=== PATIENT | female | born 1945 | race Two or more races ===

== ENCOUNTER → 2017-10-25 | Outpatient (CLI) | payer MEDICARE, MEDICAID ==
[~2017-10-25] MED LIST: ACETAMINOPHEN-1 EAC1 ORAL; TRAMADOL HCL50 MG ORAL
--- NOTE | 2017-10-25 10:10 | Diagnostic Imaging Report ---
Indication: Left-sided weakness Technique: Contiguous 5 mm thick transaxial imaging of the head obtained in a Siemens Sensation [address] scanner. Soft tissue and bone windows generated. Automatic Exposure Control was utilized. Total Dose length Product (DLP): 1298.[address] Dose Index Volume (CTDIvol): 70.38 mGy Comparison: 07/31/2016 Findings: Mild, nonspecific, white matter hypoattenuation is noted throughout the brain consistent with chronic small vessel disease. There is no midline shift, edema, acute hemorrhage, mass effect, or abnormal extra-axial fluid collections. Bones and extra osseous soft tissues are unremarkable. Impression: No acute intracranial bleed, mass effect or edema. Nonspecific white matter hypoattenuation probably due to chronic small vessel disease. The CT scanner at [facility] is accredited by the [employer] and the scans are performed using dose optimization techniques as appropriate to a performed exam including Automatic Exposure control.
--- NOTE | 2017-10-25 12:41 | Diagnostic Imaging Report ---
Indication: Left-sided weakness numbness. Technique: The head was imaged in a 1.5 Serena magnet. Sequences obtained include sagittal and axial T1 FLAIR, axial T2 fast spin echo with fat saturation, axial T2 FLAIR, diffusion and ADC map. Comparison: None Findings: There is mild prominence of the sulci, ventricles, and basal cisterns consistent with atrophy. Mild, nonspecific T2 hyperintensity noted within white matter. This may be due to chronic small vessel disease. There is no restricted diffusion. Lorenzo-white differentiation is normal. There is no mass effect, midline shift, edema, or hemorrhage. There are no abnormal extra-axial or intra-axial fluid collections. The corpus callosum and sella are unremarkable. The brainstem and cerebellum are unremarkable. Bone marrow signal within the visualized osseous structures appears age appropriate and unremarkable otherwise. Impression: No acute intracranial findings. Mild atrophy and evidence of chronic small vessel disease involving white matter tracts.
--- NOTE | 2017-10-25 12:43 | Diagnostic Imaging Report ---
Indication: Left-sided weakness Technique: 3-D [id number] of the brain Comparison: None Findings: No significant stenosis, vascular malformation, or aneurysm is identified. Flow-related enhancement of the major intracranial arteries demonstrated including the anterior, middle, and posterior cerebral arteries. Impression: Negative MRA of the brain
== END | disposition home or self-care (01) ==
LOC: CAT 09:42
DX: I63.9 Cerebral infarction, unspecified (principal); I73.9 Peripheral vascular disease, unspecified
CPT/HCPCS: 70450; 70544; 70551

== ENCOUNTER → 2019-02-02 | Outpatient (CLI) | payer MEDICARE, MEDICAID ==
--- NOTE | 2019-02-02 14:47 | Diagnostic Imaging Report ---
Indication: Constant headaches Technique: sagittal T1 fast spin echo, axial T1 FLAIR, axial T2 FLAIR, axial T2 FS PROPELLER, axial T2* GRE, axial diffusion weighted images. ADC and exponential ADC maps generated Comparison: 10/25/2017 Findings: No abnormal areas of restricted diffusion to suggest acute infarction. No acute hemorrhage or edema. No mass effect nor midline shift. There is mild age-related enlargement of the ventricles and extra axial CSF spaces. Areas evidence of prior bilateral cataract surgery. The sinuses are clear. The vascular flow voids are preserved. The mastoids are clear. Impression: Mild age-related volume loss Negative for acute intracranial bleed, mass effect, or infarct
== END | disposition home or self-care (01) ==
LOC: MRI 10:08
DX: R51 Headache (principal)
CPT/HCPCS: 70551

== ENCOUNTER 2019-03-30 10:06 | Outpatient (CLI) | payer MEDICARE ==
--- NOTE | 2019-03-30 12:13 | Diagnostic Imaging Report ---
Indication: Abdominal pain Technique: Continuous helical transaxial imaging of the abdomen and pelvis was obtained from the lung bases to the pubic symphysis. No intravenous contrast was administered. Coronal 2-D reformats were also obtained. Automatic Exposure Control was utilized. Total Dose length Product (DLP): 867.[address] Dose Index Volume (CTDIvol): 17.93 mGy Comparison: none Findings: Lung bases are essentially clear. There is a large hypodensity in the lower part of the left kidney measuring about 5.6 cm probably cystic. There are faint 1 to 2 mm calcific foci within the kidneys bilaterally likely tiny nonobstructive stones. There is no hydronephrosis. Gallbladder is absent. There is no adrenal mass or splenomegaly. A small hiatal hernia is present. Bowel gas pattern is nonobstructive. Diverticula noted within the sigmoid colon without definite evidence of acute diverticulitis. Uterus is absent. Urinary bladder is unremarkable. There is narrowing of intervertebral discs and accompanying endplate osteophyte formation. Hypertrophied facet joints also demonstrated. IMPRESSION: Bilateral nonobstructive renal stones Diverticulosis without definite evidence of acute diverticulitis. Suspected 5 to 6 cm cyst in the inferior pole left kidney. Degenerative changes of the spine. Status post cholecystectomy. Status post hysterectomy. The CT scanner at [facility] is accredited by the [employer] and the scans are performed using dose optimization techniques as appropriate to a performed exam including Automatic Exposure control.
== END 2019-03-30 12:06 | disposition home or self-care (01) ==
LOC: CAT 10:06
DX: R10.9 Unspecified abdominal pain (principal); N20.0 Calculus of kidney; K57.90 Diverticulosis of intestine, part unspecified, without perforation or abscess without bleeding; Z90.49 Acquired absence of other specified parts of digestive tract; Z90.710 Acquired absence of both cervix and uterus
CPT/HCPCS: 74176

== ENCOUNTER 2019-06-23 11:15 | Emergency (ER) | payer MEDICARE ==
[~2019-06-23] VITALS: Ht 157.5 cm; Wt 72.6 kg
--- NOTE | 2019-06-23 11:30 | NUR ---
ED Nurse Note: Patient walked into ED c/o shortness of breath for over 1 week. patient's primary doctor is Dr. Serrato, was seen by her PMD last week. patient is ambulatory steady gait, a/o x4.
[2019-06-23] MEDS ORDERED: ZANTAC150 MG ORAL (11:41)
[2019-06-23] MEDS ORDERED: VICTOZA 2-0.6 MG/0.1 SUBQ (11:41)
[2019-06-23] MEDS ORDERED: VASCEPA1 GM PO (11:41)
[2019-06-23] MEDS ORDERED: MICARDIS80 MG ORAL (11:41)
[2019-06-23] MEDS ORDERED: JENTADUETO 2.51 EAC1 PO (11:41)
[2019-06-23] MEDS ORDERED: PLAVIX75 MG ORAL (11:41)
[2019-06-23] MEDS ORDERED: SIMVASTATIN20 MG ORAL (11:41)
[2019-06-23] MEDS ORDERED: LOPID600 MG ORAL (11:41)
[2019-06-23] MEDS ORDERED: AMLODIPINE BESYL5 MG ORAL (11:41)
[2019-06-23] MEDS ORDERED: PROTONIX40 MG ORAL (11:41)
[2019-06-23] MEDS ORDERED: QNASL (11:41)
[2019-06-23] MEDS ORDERED: PROAIR HFA8.5 GM INH (11:41)
[2019-06-23] MEDS ORDERED: LYRICA75 M1 ORAL (11:41)
[2019-06-23] MEDS ORDERED: SYMBICORT 16010.2 G1 IH (11:41)
[2019-06-23] MEDS ORDERED: lovaza (11:41)
[2019-06-23] MEDS: Albuterol ud Inhalation HHN SCH ×3 (11:54→12:23)
[2019-06-23] MEDS ORDERED: Ipratropium 0.02% Inh Soln 2.5ml UD HHN ONE (12:00)
--- NOTE | 2019-06-23 12:01 | Emergency Room Report ---
History of Present Illness General Chief Complaint: Dyspnea/Respdistress Source: Patient Present Illness HPI Disclaimer: Please note that this report is being documented using DRAGON technology. This can lead to erroneous entry secondary to incorrect interpretation by the dictating instrument. HPI: This is a 74-year-old female with a history of hypertension, hyperlipidemia , CAD status post stenting, diabetes, asthma, renal disease, GERD presenting for evaluation of persistent cough and shortness of breath. Symptoms have been present more than 1 week. She was seen at her PMD diagnosed with a viral upper respiratory syndrome in the setting of sore throat, nasal congestion, postnasal drip. She was started on Tessalon Perles without significant improvement in her symptoms. She has noted subjective fevers throughout the week and then you using Tylenol for control of those fevers. She has not taken any temperatures at home. Noted some abdominal discomfort including a couple episodes of vomiting and some loose stools however this is now resolving. No known sick contacts. Came in today for worsening cough and worsening chest pain while coughing. PMH: Diabetes, hypertension, hyperlipidemia, CAD, GERD, renal disease, renal cysts PSH: , cholecystectomy, cardiac stents Allergies: Denies Social Hx: Denies alcohol, tobacco or drug use Allergies: Coded Allergies: No Known Allergies (Unverified , 01/17/16) Nursing Documentation-PM Past Medical History: No History, Except For Hx Hypertension: Yes Hx Diabetes: Yes Review of Systems All Other Systems: negative except mentioned in HPI Physical Exam Vital Signs Date Time Temp Pulse Resp B/P (MAP) Pulse Ox O2 Delivery O2 Flow Rate FiO2 06/23/19 11:26 98.2 84 20 155/80 (105) 96 Room Air General: Awake and alert, no acute distress HEENT: NC/AT. EOMI. Sinus congestion bilaterally and mild tenderness. Neck: Supple, trachea midline Chest Wall: No tenderness, no deformity Cardiovascular: RRR. S1 and S2 normal. No murmur appreciated Resp: Normal work of breathing. Persistent cough throughout my exam. Faint wheezing in the upper lung corado and faint crackles in the low bases bilaterally. Restricted air entry bilaterally. Abdomen: Abdomen is soft, nondistended. Nontender, obese abdomen Skin: Intact. No abrasions, laceration or rash over the exposed skin MSK: Normal tone and bulk. Moving all extremities. No obvious deformity. Neuro: Awake and alert. Mentating appropriately. Medical Decision Making Diagnostic Impression: Primary Impression: URI (upper respiratory infection) Additional Impression: Bronchitis ER Course 74-year-old female presents for evaluation of cough and shortness of breath greater than 1 week duration. Differential includes was not limited to URI, pneumonia, bronchitis, asthma exacerbation, COPD, ACS, angina, gastroenteritis. We will start a broad metabolic and infectious work-up including chest x-ray and EKG. Patient is currently comfortable though air entry is reduced bilaterally with some scant wheezing. Will give breathing treatments and monitor for improvement. Laboratory Tests Test 06/23/19 12:00 06/23/19 13:05 White Blood Count 9.1 K/UL (4.8-10.8) Red Blood Count 3.52 M/UL (4.20-5.40) L Hemoglobin 10.4 G/DL (12.0-16.0) L Hematocrit 32.5 % (37.0-47.0) L Mean Corpuscular Volume 93 FL (80-99) Mean Corpuscular Hemoglobin 29.7 PG (27.0-31.0) Mean Corpuscular Hemoglobin Concent 32.1 G/DL (32.0-36.0) Red Cell Distribution Width 12.4 % (11.6-14.8) Platelet Count 273 K/UL (150-450) Mean Platelet Volume 5.3 FL (6.5-10.1) L Neutrophils (%) (Auto) 74.0 % (45.0-75.0) Lymphocytes (%) (Auto) 17.5 % (20.0-45.0) L Monocytes (%) (Auto) 5.7 % (1.0-10.0) Eosinophils (%) (Auto) 2.3 % (0.0-3.0) Basophils (%) (Auto) 0.5 % (0.0-2.0) Sodium Level 149 MMOL/L (136-145) H Potassium Level 4.1 MMOL/L (3.5-5.1) Chloride Level 112 MMOL/L (98-107) H Carbon Dioxide Level 25 MMOL/L (21-32) Anion Gap 12 mmol/L (5-15) Blood Urea Nitrogen 28 mg/dL (7-18) H Creatinine 1.5 MG/DL (0.55-1.30) H Estimate Glomerular Filtration Rate mL/min (>60) Glucose Level 148 MG/DL (74-106) H Calcium Level 8.9 MG/DL (8.5-10.1) Total Bilirubin 0.2 MG/DL (0.2-1.0) Aspartate Amino Transferase (AST) 16 U/L (15-37) Alanine Aminotransferase (ALT) 17 U/L (12-78) Alkaline Phosphatase 84 U/L (46-116) Total Creatine Kinase 81 U/L (26-308) Creatine Kinase MB 0.6 NG/ML (0.0-3.6) Creatine Kinase MB Relative Index 0.7 Troponin I 0.000 ng/mL (0.000-0.056) Pro-B-Type Natriuretic Peptide 160 pg/mL (0-125) H Total Protein 7.7 G/DL (6.4-8.2) Albumin 3.5 G/DL (3.4-5.0) Globulin 4.2 g/dL Albumin/Globulin Ratio 0.8 (1.0-2.7) L Urine Color Pale yellow Urine Appearance Clear Urine pH 5 (4.5-8.0) Urine Specific [place] 1.010 (1.005-1.035) Urine Protein 2+ (NEGATIVE) H Urine Glucose (UA) Negative (NEGATIVE) Urine Ketones Negative (NEGATIVE) Urine Blood Negative (NEGATIVE) Urine Nitrite Negative (NEGATIVE) Urine Bilirubin Negative (NEGATIVE) Urine Urobilinogen Normal MG/DL (0.0-1.0) Urine Leukocyte Esterase 1+ (NEGATIVE) H Urine RBC 0-2 /HPF (0 - 2) Urine WBC 0-2 /HPF (0 - 2) Urine Squamous Epithelial Cells Occasional /LPF Urine Bacteria Few /HPF (NONE) EKG Diagnostic Results EKG Time: 11:56 Rate: normal Rhythm: NSR Other Impression Sinus rhythm, left axis, normal intervals. No acute ischemic changes. There are Q waves in inferior leads consistent with prior infarct of indeterminate age Rhythm Strip Diag. Results Rhythm Strip Time: 11:56 EP Interpretation: yes Rate: 80s Rhythm: NSR Chest X-Ray Diagnostic Results Chest X-Ray Diagnostic Results : # of Views/Limited/Complete: 2 View Indication: Shortness of Breath EP Interpretation: Yes PA Xray: Interpretation reviewed Interpretation: no consolidation, no effusion, no pneumothorax Impression: No acute disease Electronically Signed by: Electronically signed by Dr. Hunter Reynoso Reevaluation Time: 13:47 Last Vital Signs Date Time Temp Pulse Resp B/P (MAP) Pulse Ox O2 Delivery O2 Flow Rate FiO2 06/23/19 11:26 98.2 84 20 155/80 (105) 96 Room Air Status: improved Reevaluation Impression Lab work largely unremarkable. No significant white count or other major abnormalities. Creatinine is slightly elevated though PMD states this is her new baseline. Chest x-ray shows no obvious infiltrate. May be a viral illness that the patient is experiencing and should improve over the next few days. She is doing much better after receiving breathing treatments in the emergency department. I discussed with her PMD who can follow-up with her closely. I will discharge on prednisone and Mucinex and the patient will have's with follow -up with her PMD in the next few days. I discussed reasons to return to the emergency department with patient and her niece who is present at bedside. They both understand and agrees with this treatment plan will be discharged home Disposition: HOME, SELF-CARE Condition: Improved Scripts Guaifenesin (GUAIFENESIN) 400 Mg Tablet 400 MG PO TID for 7 Days, #21 TAB Prov: Hunter Reynoso MD 06/23/19 Prednisone* (PREDNISONE*) 20 Mg Tablet 40 MG ORAL DAILY for 3 Days, #6 TAB Prov: Hunter Reynoso MD 06/23/19 Hunter Reynoso MD Jun 23, 2019 12:01
[2019-06-23 12:08] LABS: BASOPHILS % (AUTO) 0.5 % (0.0-2.0); EOSINOPHILS % (AUTO) 2.3 % (0.0-3.0); HEMATOCRIT 32.5 % (37.0-47.0); HEMOGLOBIN 10.4 G/DL (12.0-16.0); LYMPHOCYTES % (AUTO) 17.5 % (20.0-45.0); MEAN CORPUSCULAR VOLUME 93 FL (80-99); MONOCYTES % (AUTO) 5.7 % (1.0-10.0); PLATELET COUNT 273 K/UL (150-450); RED BLOOD COUNT 3.52 M/UL (4.20-5.40); RED CELL DISTRIBUTION WIDTH 12.4 % (11.6-14.8); WHITE BLOOD COUNT 9.1 K/UL (4.8-10.8)
[2019-06-23 12:22] LABS: ANION GAP 12 mmol/L (5-15); BLOOD UREA NITROGEN 28 mg/dL (7-18); CALCIUM 8.9 MG/DL (8.5-10.1); CARBON DIOXIDE 25 MMOL/L (21-32); CHLORIDE 112 MMOL/L (98-107); CREATININE 1.5 MG/DL (0.55-1.30); POTASSIUM 4.1 MMOL/L (3.5-5.1); SODIUM 149 MMOL/L (136-145)
[2019-06-23 12:29] VITALS: BP 126/63
[2019-06-23 12:36] LABS: ALANINE AMINOTRANSFERASE 17 U/L (12-78); ALBUMIN 3.5 G/DL (3.4-5.0); ALBUMIN/GLOBULIN RATIO 0.8 (1.0-2.7); ALKALINE PHOSPHATASE 84 U/L (46-116); ASPARTATE AMINO TRANSFERASE 16 U/L (15-37); BILIRUBIN,TOTAL 0.2 MG/DL (0.2-1.0); CKMB 0.6 NG/ML (0.0-3.6); CREATINE KINASE 81 U/L (26-308)
--- NOTE | 2019-06-23 13:05 | NUR ---
ED Nurse Note: ua sent to lab
--- NOTE | 2019-06-23 13:05 | Diagnostic Imaging Report ---
Indication: Cough, shortness of breath Technique: One view of the chest Comparison: 08/04/2015 Findings: The heart remains enlarged. No definite acute infiltrates, effusions, congestion. Impression: Cardiomegaly. No definite acute process
[2019-06-23 13:15] LABS: APPEARANCE,URINE CLEAR; BILIRUBIN, URINE NEGATIVE (NEGATIVE); COLOR,URINE PALE YELLOW; GLUCOSE, URINE (UA) NEGATIVE (NEGATIVE); KETONES,URINE NEGATIVE (NEGATIVE); LEUKOCYTE ESTERASE ,URINE 1+ (NEGATIVE); NITRITE,URINE NEGATIVE (NEGATIVE); PH,URINE 5 (4.5-8.0); PROTEIN,URINE 2+ (NEGATIVE); UROBILINOGEN,URINE NORMAL MG/DL (0.0-1.0)
[2019-06-23] MEDS ORDERED: PREDNISONE20 MG ORAL (13:46)
[2019-06-23] MEDS ORDERED: GUAIFENESIN400 MG PO (13:46)
[2019-06-23 13:55] VITALS: BP 126/63
--- NOTE | 2019-06-23 13:55 | NUR ---
ER DISCHARGE NOTE: Patient is cleared to be discharged per ROSY DEXTER pt is aox4, on room air, with stable vital signs. pt was given dc and prescription instructions, pt was able to verbalize understanding, pt id band and iv site removed without complications. pt is able to ambulate with steady gait. pt took all belongings.
== END 2019-06-23 13:55 | disposition home or self-care (01) ==
LOC: EMR 12:06
DX: J40 Bronchitis, not specified as acute or chronic (principal); J06.9 Acute upper respiratory infection, unspecified; I10 Essential (primary) hypertension; E11.9 Type 2 diabetes mellitus without complications; E78.5 Hyperlipidemia, unspecified; I25.10 Atherosclerotic heart disease of native coronary artery without angina pectoris; K21.9 Gastro-esophageal reflux disease without esophagitis; Z95.5 Presence of coronary angioplasty implant and graft; Z90.49 Acquired absence of other specified parts of digestive tract; Z87.448 Personal history of other diseases of urinary system
CPT/HCPCS: 36415; 71045; 80053; 81003; 82550; 82553; 83880; 84484; 85025; 93005; 94640; 94664; 99284

== ENCOUNTER 2020-01-31 20:45 | Inpatient (IN) | payer MEDICARE ==
[~2020-01-31] VITALS: Ht 160 cm; Wt 70.8 kg
[~2020-01-31 20:45] MED LIST changes: +AMLODIPINE BESYL5 MG ORAL; +GUAIFENESIN400 MG PO; +JENTADUETO 2.51 EAC1 PO; +LOPID600 MG ORAL; +LYRICA75 M1 ORAL; +MICARDIS80 MG ORAL; +PLAVIX75 MG ORAL; +PREDNISONE20 MG ORAL; +PROAIR HFA8.5 GM INH; +PROTONIX40 MG ORAL; +QNASL; +SIMVASTATIN20 MG ORAL; +SYMBICORT 16010.2 G1 IH; +VASCEPA1 GM PO; +VICTOZA 2-0.6 MG/0.1 SUBQ; +ZANTAC150 MG ORAL; +lovaza
[2020-01-31] MEDS ORDERED: Aspirin Baby 81mg ORAL ONE (21:00)
[2020-01-31] MEDS ORDERED: Nitroglycerin Subl 0.4mg tab SL PRN (21:00)
--- NOTE | 2020-01-31 21:29 | Emergency Room Report ---
History of Present Illness General Chief Complaint: Chest Pain Source: Patient Present Illness HPI Disclaimer: Please note that this report is being documented using [employer] it Wave[employer] technology. This can lead to erroneous entry secondary to incorrect interpretation by the dictating instrument. HPI: 74-year-old female history of hypertension, diabetes, cholecystectomy, presented for chest pain and abdominal pain. Regarding her chest pain is been present for the past 3 days center nonradiating associated with nausea and vomiting. Also complaining of abdominal pain that is epigastric and suprapubic , 8 out of 10 associated with nausea vomiting and dysuria. She denies any fevers cough or shortness of breath. She states her blood pressure has been elevated today. She reports a history of myocardial infarction in the past. PMH: Hypertension, diabetes, coronary artery disease, cholecystectomy, hernia repair, PSH: Reviewed Social Hx: Patient denied any drinking, smoking or illicit drug use Allergies: Coded Allergies: No Known Allergies (Unverified , 01/17/16) COVID-19 Screening Contact w/high risk pt: No Recent Travel to affected area: No Experienced COVID-19 symptoms?: No Patient History Reviewed Nursing Documentation: PMH: Agreed; PSxH: Agreed Nursing Documentation-PMH Hx Hypertension: Yes Hx Diabetes: Yes Review of Systems All Other Systems: negative except mentioned in HPI Physical Exam Vital Signs Date Time Temp Pulse Resp B/P (MAP) Pulse Ox O2 Delivery O2 Flow Rate FiO2 01/31/20 20:56 98.4 77 24 200/99 (132) 95 Room Air Sp02 EP Interpretation: reviewed, normal General Appearance: well appearing, other - Patient appears uncomfortable Head: normocephalic, atraumatic Eyes: bilateral eye PERRL, bilateral eye EOMI ENT: hearing grossly normal, moist mucus membranes Neck: full range of motion, supple Respiratory: lungs clear, normal breath sounds, no rhonchi, no respiratory distress, no retraction, no wheezing Cardiovascular #1: normal peripheral pulses, regular rate, rhythm, no murmur Gastrointestinal: soft, non-distended, no guarding, other - Diffuse tenderness noted Neurologic: alert, oriented x3, no focal defects Skin: normal color, warm/dry Medical Decision Making Diagnostic Impression: Primary Impression: Chest pain Additional Impressions: Nausea & vomiting UTI (urinary tract infection) ER Course MDM: 74-year-old female presented with multiple complaints including chest pain abdominal pain nausea and vomiting. differential diagnosis: included but not limited to gastritis, gastroenteritis , diverticulitis, UTI, pyelonephritis, ACS Clinical course Patient placed on stretcher. On lab associate. After initial history and physical I ordered labs, CT scan of the abdomen pelvis, chest x-ray, EKG, antiemetics and pain control. Troponin negative X1. CT scan of the abdomen pelvis showed no evidence of acute pathology. Urinalysis was consistent with urinary tract infection. IV antibiotics given. Due to patient's cardiac risk factors, history of cardiac disease will admit for further observation and treatment. Laboratory Tests Test 01/31/20 21:30 01/31/20 21:50 White Blood Count 6.8 K/UL (4.8-10.8) Red Blood Count 4.15 M/UL (4.20-5.40) L Hemoglobin 12.3 G/DL (12.0-16.0) Hematocrit 37.5 % (37.0-47.0) Mean Corpuscular Volume 90 FL (80-99) Mean Corpuscular Hemoglobin 29.6 PG (27.0-31.0) Mean Corpuscular Hemoglobin Concent 32.8 G/DL (32.0-36.0) Red Cell Distribution Width 12.7 % (11.6-14.8) Platelet Count 237 K/UL (150-450) Mean Platelet Volume 7.5 FL (6.5-10.1) Neutrophils (%) (Auto) 90.2 % (45.0-75.0) H Lymphocytes (%) (Auto) 7.3 % (20.0-45.0) L Monocytes (%) (Auto) 1.8 % (1.0-10.0) Eosinophils (%) (Auto) 0.0 % (0.0-3.0) Basophils (%) (Auto) 0.6 % (0.0-2.0) Sodium Level 133 MMOL/L (136-145) L Potassium Level 3.3 MMOL/L (3.5-5.1) L Chloride Level 94 MMOL/L (98-107) L Carbon Dioxide Level 22 MMOL/L (21-32) Anion Gap 17 mmol/L (5-15) H Blood Urea Nitrogen 20 mg/dL (7-18) H Creatinine 1.3 MG/DL (0.55-1.30) Estimated Glomerular Filtration Rate 40.1 mL/min (>60) Glucose Level 266 MG/DL (74-106) H Calcium Level 9.2 MG/DL (8.5-10.1) Total Bilirubin 0.2 MG/DL (0.2-1.0) Aspartate Amino Transferase (AST) 21 U/L (15-37) Alanine Aminotransferase (ALT) 23 U/L (12-78) Alkaline Phosphatase 78 U/L (46-116) Troponin I 0.000 ng/mL (0.000-0.056) Pro-B-Type Natriuretic Peptide 526 pg/mL (0-125) H Total Protein 8.1 G/DL (6.4-8.2) Albumin 3.7 G/DL (3.4-5.0) Globulin 4.4 g/dL Albumin/Globulin Ratio 0.8 (1.0-2.7) L Urine Color Pale yellow Urine Appearance Slightly cloudy Urine pH 7 (4.5-8.0) Urine Specific [place] 1.010 (1.005-1.035) Urine Protein 3+ (NEGATIVE) H Urine Glucose (UA) 3+ (NEGATIVE) H Urine Ketones 2+ (NEGATIVE) H Urine Blood 1+ (NEGATIVE) H Urine Nitrite Negative (NEGATIVE) Urine Bilirubin Negative (NEGATIVE) Urine Urobilinogen Normal MG/DL (0.0-1.0) Urine Leukocyte Esterase 3+ (NEGATIVE) H Urine RBC 2-4 /HPF (0 - 2) H Urine WBC 10-15 /HPF (0 - 2) H Urine Squamous Epithelial Cells Few /LPF (NONE/OCC) Urine Bacteria Few /HPF (NONE) EKG Diagnostic Results EP Interpretation: Yes Rate: normal Rhythm: NSR ST Segments: other Other Impression Sinus rhythm, left axis deviation, prolonged QT impression nonspecific EKG CT/MRI/US Diagnostic Results CT/MRI/US Diagnostic Results : Imaging Test Ordered: CT scan abdomen pelvis Impression CT ABDOMEN + PELVIS Without Contrast: Prior 03/30/2019 Impression -No acute abnormality definitively identified to account for patient presentation. -Hepatic steatosis, correlate to exclude steatohepatitis. - Likely 2 left and at least one right punctate nonobstructing nephroliths, otherwise no urolithiasis. -Cholecystectomy. -Unchanged since prior right lower lobe 0.4 cm nodule, recommend correlation with prior imaging studies to evaluate stability over time. -Mosaic lung attenuation could represent small airways disease. -Benign left renal cyst. -Atherosclerotic vascular disease. - Hysterectomy. - Colonic diverticulosis without acute diverticulitis. - Unchanged anterior low pelvic wall and rectus abdominis muscle thickening since prior study of likely no acute clinical significance. Last Vital Signs Date Time Temp Pulse Resp B/P (MAP) Pulse Ox O2 Delivery O2 Flow Rate FiO2 01/31/20 20:56 98.4 77 24 200/99 (132) 95 Room Air Status: improved Disposition: ADMITTED INPATIENT Condition: Serious Referrals: Bulmaro Correa MD (PCP) Myron Walters M.D. Jan 31, 2020 21:29
[2020-01-31 21:30] VITALS: BP 200/99
[2020-01-31] MEDS ORDERED: Morphine Sulfate 2mg/ml Inj(IV/IM USE ONLY) IVP ONE (21:30)
--- NOTE | 2020-01-31 21:30 | NUR ---
ER Nurse Note: Pt walked in c/o mid to LT chest pain since AM. Pt stated she noted elevated BP and a headache. Pt stated abd pain for the past 3 days with increasing burning sensation when she urinates. Pt does not recall if she took her meds for BP. SLIV established; blood drawn and sent to lab. EKG completed and showen to ERMD. All safety measures met; will [facility] to [facility].
[2020-01-31 21:46] LABS: BASOPHILS % (AUTO) 0.6 % (0.0-2.0); HEMATOCRIT 37.5 % (37.0-47.0); HEMOGLOBIN 12.3 G/DL (12.0-16.0); LYMPHOCYTES % (AUTO) 7.3 % (20.0-45.0); MEAN CORPUSCULAR VOLUME 90 FL (80-99); MONOCYTES % (AUTO) 1.8 % (1.0-10.0); NEUTROPHILS % (AUTO) 90.2 % (45.0-75.0); PLATELET COUNT 237 K/UL (150-450); RED BLOOD COUNT 4.15 M/UL (4.20-5.40); RED CELL DISTRIBUTION WIDTH 12.7 % (11.6-14.8); WHITE BLOOD COUNT 6.8 K/UL (4.8-10.8)
--- NOTE | 2020-01-31 21:53 | Diagnostic Imaging Report ---
Indication: Abdominal pain Technique: Spiral acquisitions obtained through the abdomen and pelvis. No oral contrast utilized, per emergency room physician request No IV contrast utilized, per referring physician request.. Multiplanar reconstructions were generated. Total dose length product for 264 mGycm. CTDIvol(s) 9.9 mGy. Dose reduction achieved using automated exposure control Comparison: 03/30/2019 Findings: The appendix is not definitely visualized, but no findings to suggest acute appendicitis are evident. There are colonic diverticula. No evidence of acute diverticulitis. No free or loculated intraperitoneal gas or fluid. No small bowel distention. The distal esophagus, stomach, duodenum are unremarkable. Lack of IV contrast limits assessment of the solid organs. The gallbladder has been removed. The liver is diffusely hypoattenuating, consistent with fatty change. No gross focal abnormality. The pancreas is unremarkable. The spleen demonstrates a subcentimeter low-attenuation lesion which is also evident previously. The adrenals are unremarkable. Both kidneys demonstrate small calyceal calculi. No ureteral calculi, hydronephrosis, or hydroureter demonstrated. A large cyst comes off of the lower pole of the left kidney. This is also evident previously. The uterus has been removed. No pelvic mass or adenopathy. There are degenerative spondylosis changes. Compression fracture deformities of the L2 and T11 vertebral bodies are unchanged. There is a 4 mm nodule at the right lung base which is unchanged from the previous exam Impression: No acute abnormality Stable 4 mm right basilar lung nodule. No further follow-up necessary if there is no significant risk factors for lung carcinoma. If there are risk factors, recommend follow-up CT at 12 months from the previous exam to complete surveillance interval Colonic diverticulosis. No evidence of diverticulitis. Fatty liver Nonobstructive bilateral intrarenal calyceal calculi, also previously reported Stable subcentimeter low-attenuation splenic lesion, likely benign stable T10-11 and L2 vertebral body compression fracture deformities Other findings as noted, including large left lower pole renal cyst, prior hysterectomy, prior cholecystectomy This agrees with the preliminary interpretation provided overnight by [facility] teleradiology service. The CT scanner at [facility] is accredited by the [employer] and the scans are performed using protocols designed to limit radiation exposure to as low as reasonably achievable to attain images of sufficient resolution adequate for diagnostic evaluation.
[2020-01-31 21:58] LABS: ANION GAP 17 mmol/L (5-15); BLOOD UREA NITROGEN 20 mg/dL (7-18); CALCIUM 9.2 MG/DL (8.5-10.1); CARBON DIOXIDE 22 MMOL/L (21-32); CHLORIDE 94 MMOL/L (98-107); CREATININE 1.3 MG/DL (0.55-1.30); POTASSIUM 3.3 MMOL/L (3.5-5.1); SODIUM 133 MMOL/L (136-145)
[2020-01-31 22:08] LABS: ALANINE AMINOTRANSFERASE 23 U/L (12-78); ALBUMIN 3.7 G/DL (3.4-5.0); ALBUMIN/GLOBULIN RATIO 0.8 (1.0-2.7); ALKALINE PHOSPHATASE 78 U/L (46-116); ASPARTATE AMINO TRANSFERASE 21 U/L (15-37); BILIRUBIN,TOTAL 0.2 MG/DL (0.2-1.0)
--- NOTE | 2020-01-31 22:14 | NUR ---
ER Nurse Note: All orders completed per ERMD orders. Denies pain after meds given. Pt more calm, VSS, no signs of distress. Awaiting urine results. Pt skin intact, ambulatory with steady gait. All safety measues met; will continue to [facility].
[2020-01-31 22:24] LABS: APPEARANCE,URINE SLIGHTLY CLOUDY; BILIRUBIN, URINE NEGATIVE (NEGATIVE); COLOR,URINE PALE YELLOW; GLUCOSE, URINE (UA) 3+ (NEGATIVE); KETONES,URINE 2+ (NEGATIVE); LEUKOCYTE ESTERASE ,URINE 3+ (NEGATIVE); NITRITE,URINE NEGATIVE (NEGATIVE); PH,URINE 7 (4.5-8.0); PROTEIN,URINE 3+ (NEGATIVE); UROBILINOGEN,URINE NORMAL MG/DL (0.0-1.0)
--- NOTE | 2020-01-31 22:27 | NUR ---
ER Nurse Note: Second sublingual nitro given d/t to continous pain. Pt stated morphine helped but pain still present. BP 164/77. Lights turned off for comfort. Will continue to [facility].
[2020-01-31 22:29] VITALS: BP 164/77
[2020-01-31] MEDS ORDERED: cefTRIAXone 1 GM in NS 55 ML IVPB ONE (22:45)
--- NOTE | 2020-01-31 23:20 | NUR ---
ER Nurse Note: Gave report to EM Valverde for contiinuity of care. All orders completed; pt stable. Addendum: 02/01/20 at 0003 by [email or web address] ER Nurse Note: Pt does not remember home meds; unable to med recon.
[2020-01-31 23:35] VITALS: BP 146/74
[2020-02-01] VITALS (7 sets, daily range): BP systolic 104–147; BP diastolic 64–81
--- NOTE | 2020-02-01 | NUR ---
NURSE NOTES: Received report from Flor Cooper RN. Patient was transferred via gurney to room 205-2. Patient is alert and oriented x 4. Oriented to room and telemetry unit. media monitor is in placed, shows sinus rhythm. IV site on left forearm g-22 saline lock that is intact, patent and asymptomatic. Safety measures are in placed, bed in lowest and locked position, call light and bedside table within reach. Side rails up x 2, bed alarm is on. Instructed to call for any assistance needed. Will follow-up for admission orders.
--- NOTE | 2020-02-01 05:30 | NUR ---
NURSE NOTES: Called Dr. Correa to get admitting orders and just left a message. Awaiting for call back.
--- NOTE | 2020-02-01 07:15 | NUR ---
NURSE NOTES: Handoff received from EM Israel. Patient received awake and alert, resting in bed, no acute signs of distress noted. Bed in the low and locked position, with call light within reach,No signs of distress noted, will continue to monitor.
[2020-02-01] MEDS ORDERED: Tylenol #3 tab (300mg/30mg) ORAL PRN ×2 (07:30→16:45)
[2020-02-01] MEDS ORDERED: traMADol 50mg tab ORAL PRN (07:30)
--- NOTE | 2020-02-01 08:07 | NUR ---
HAND-OFF: Report given to EM Bush. Patient is in stable condition, plan of care endorsed.
--- NOTE | 2020-02-01 08:19 | NUR ---
NURSE NOTES: Dr Correa gave TO/RB order given for heparin 5000U sub cutaneous BID. Endorsed from PM shift.
--- NOTE | 2020-02-01 08:39 | NUR ---
NURSE NOTES:Patient in observation status per Dr Correa.
[2020-02-01] MEDS ORDERED: guaiFENesin ER 600mg tab ORAL SCH (09:00)
--- NOTE | 2020-02-01 09:50 | Diagnostic Imaging Report ---
Indication: Chest pain Technique: One view of the chest Comparison: 06/23/2019 Findings: The heart is enlarged. The lungs and pleural spaces are clear. There is no significant interim change Impression: Cardiomegaly No acute process
[2020-02-01] MEDS: Irbesartan 150mg tablet ORAL SCH (10:14)
[2020-02-01] MEDS: Lyrica 50mg cap ORAL SCH ×3 (10:15→17:00)
[2020-02-01] MEDS: Heparin 5000 units/ml inj SUBQ SCH ×2 (10:17→21:44)
--- NOTE | 2020-02-01 10:34 | NUR ---
CASE MANAGEMENT:REVIEW 74 YR OLD FEMALE WALKED IN TO ER CC: CHEST PAIN, HEADACHE AND HIGH BP SI: CHEST PAIN. ACS. N/V. UTI 98.5 77 24 200/99 95% ON RA NA-133 K-3.3 BUN+20 GLUCOSE+266 TROPONIN(-) IS: ASA PO IV ZOFRAN X1 IV MORPHINE IV ROCEPHIN URINE CX CT ABD/PELVIS CHEST XRAY : TELEMETRY STATUS DCP: FROM HOME
--- NOTE | 2020-02-01 11:26 | NUR ---
HAND-OFF: Report given to EM Bennett.
--- NOTE | 2020-02-01 11:30 | NUR ---
NURSE NOTES: RECEIVED PATIENT A/A/OX4, AMBULATORY WITH MINIMAL ASSIST. NO SKIN ISSUES NOTED. ABLE TO PERFORM ADL'S INDEPENDENTLY. TOLERATING FOOD INTAKE WELL. IV ACCESS PATENT AND INTACT. NO ACUTE CARDIO-RESP DISTRESS NOTED. BED IS IN THE LOWEST POSITION. SIDERAILS ARE UPX3. BRAKES AND LOCKED ENGAGED. CALL LIGHT IS WITHIN REACH. WILL CONT TO MONITOR.
[2020-02-01] MEDS: NovoLOG Insulin Flexpen SUBQ SCH ×3 (11:37→21:44)
[2020-02-01] MEDS: guaiFENesin ER 600mg tab ORAL SCH ×2 (12:36→17:00)
--- NOTE | 2020-02-01 12:45 | History and Physical Report ---
DATE OF ADMISSION: 01/31/2020 REASON FOR ADMISSION: Chest pain and flank pain. HISTORY OF PRESENT ILLNESS: This is a 74-year-old female, well known to me. The patient with history of diabetes and hypertension, who presented with chest pain and epigastric pain. The patient had a CT of her abdomen, which is fairly nonspecific. The patient also with some nausea and vomiting. No cough. No sputum. No fevers. The patient overall improved in regards to pain. At this time, the patient's blood pressure has been somewhat elevated as well. The patient notes that she has had some flank pain. Currently, the patient appears to be fairly comfortable. No significant distress. PAST MEDICAL HISTORY: Notable for hypertension, diabetes, cholecystectomy, hernia repair, and coronary artery disease. MEDICATIONS: Reviewed. ALLERGIES: Reviewed. SOCIAL HISTORY: Nonsmoker and nondrinker. The patient has been socially isolating. REVIEW OF SYSTEMS: All 10 points reviewed and otherwise negative. PHYSICAL EXAMINATION: GENERAL: A well-developed female, comfortable at present. VITAL SIGNS: Stable. Blood pressure 137/74, pulse 64, respirations 20, sats 100%, temperature 96.7. HEENT: Negative. NECK: Supple. Extraocular movements are grossly intact. LUNGS: Clear and symmetric. No rhonchi or wheezes. CARDIAC: S1 and S2. Regular rate and rhythm without murmurs, rubs, or gallops. ABDOMEN: Soft, nontender, nondistended. EXTREMITIES: No cyanosis, clubbing, or edema. NEUROLOGIC: Grossly nonfocal. LABORATORY DATA: All lab data reviewed. IMPRESSION: 1. Chest pain, possible acute coronary syndrome. Negative troponins thus far. 2. Elevated natriuretic peptide. 3. Abdominal pain, which is very mild. 4. Chronic renal impairment. 5. elevated triglycerides 6. Hyperkalemia. 7. Diabetes. 8. Hypertension. RECOMMENDATIONS: Supportive care. Resume home medications. Monitor blood pressure. Monitor heart rate. Monitor electrolytes. Monitor troponin. Follow up EKG and if stable, we will consider discharge planning with outpatient nuclear stress test for further evaluation and recommendations. Care discussed with the patient's family and will follow up clinically for further changes. Bulmaro Correa M.D. DR: NESTOR JOB#: [id number] CC: NEYMAR
[2020-02-01] MEDS: Albuterol ud Inhalation HHN SCH ×2 (13:09→19:06)
--- NOTE | 2020-02-01 19:27 | NUR ---
NURSE NOTES: RECEIVED PATIENT A/A/OX4, sitting up in bed, AMBULATORY WITH MINIMAL ASSIST. NO SKIN ISSUES NOTED. ABLE TO PERFORM ADL'S INDEPENDENTLY. L FA 22 g, NS locked, IV ACCESS PATENT AND INTACT. NO ACUTE DISTRESS NOTED. BED IS IN THE LOWEST POSITION. SIDE RAILS ARE UPX3. Bed locked in lowest position. CALL LIGHT IS WITHIN REACH. WILL CONTINUE TO MONITOR.
--- NOTE | 2020-02-01 19:36 | NUR ---
HAND-OFF: Report given to Sofy.
[2020-02-02] MEDS: Albuterol ud Inhalation HHN SCH ×3 (00:23→12:04)
[2020-02-02 04:00] VITALS: BP 124/64
[2020-02-02] MEDS: NovoLOG Insulin Flexpen SUBQ SCH (06:34)
--- NOTE | 2020-02-02 07:30 | NUR ---
HAND-OFF: Report given to Lauren STRICKLAND.
[2020-02-02 07:41] LABS: ANION GAP 11 mmol/L (5-15); BLOOD UREA NITROGEN 28 mg/dL (7-18); CALCIUM 8.9 MG/DL (8.5-10.1); CARBON DIOXIDE 26 MMOL/L (21-32); CHLORIDE 98 MMOL/L (98-107); CREATININE 1.8 MG/DL (0.55-1.30); POTASSIUM 3.7 MMOL/L (3.5-5.1); SODIUM 135 MMOL/L (136-145)
[2020-02-02 08:35] VITALS: BP 117/61
--- NOTE | 2020-02-02 08:37 | NUR ---
NURSE NOTES: need to clarify order for symbicort and vascepa, message left with dr love
[2020-02-02 09:02] VITALS: BP 117/61
[2020-02-02] MEDS: guaiFENesin ER 600mg tab ORAL SCH (09:02)
[2020-02-02] MEDS: Irbesartan 150mg tablet ORAL SCH (09:02)
[2020-02-02] MEDS: Lyrica 50mg cap ORAL SCH (09:03)
[2020-02-02] MEDS: Heparin 5000 units/ml inj SUBQ SCH (09:05)
--- NOTE | 2020-02-02 10:30 | NUR ---
HAND-OFF: Report given to Liz STRICKLAND pt in stable condition.
--- NOTE | 2020-02-02 11:13 | General Progress Note ---
Assessment/Plan Assessment/Plan: IMPRESSION: 1. Chest pain resolved 2. Elevated natriuretic peptide. 3. Abdominal pain, improved 4. Chronic renal impairment. 5. Flank pain 6. Hyperkalemia. 7. Diabetes. 8. Hypertension. PLAN troponin negative x 4 symptoms improved dc home outpatient ribidium PET family aware compliance urged overall impression, plan, and exam edited and reviewed in detail care discussed with RN Subjective Allergies: Coded Allergies: No Known Allergies (Unverified , 01/17/16) Subjective comfortable no further cp or abdominal pain family updated Objective Last 24 Hour Vital Signs Date Time Temp Pulse Resp B/P (MAP) Pulse Ox O2 Delivery O2 Flow Rate FiO2 02/02/20 09:19 Room Air 02/02/20 09:02 117/61 02/02/20 09:02 87 117/61 02/02/20 08:35 98.1 87 18 117/61 (79) 95 02/02/20 08:34 87 02/02/20 06:50 75 18 99 Room Air 69 18 95 02/02/20 06:50 69 18 95 Room Air 02/02/20 04:00 98.3 84 18 124/64 (84) 95 02/02/20 04:00 67 02/02/20 00:23 82 18 99 Room Air 80 18 98 02/02/20 00:00 71 02/01/20 23:31 98.1 91 20 121/81 (94) 95 02/01/20 21:00 Room Air 02/01/20 20:00 97.9 88 20 126/74 (91) 95 02/01/20 19:06 80 18 99 Room Air 78 18 97 02/01/20 19:06 78 18 97 Room Air 02/01/20 16:00 98.1 82 18 124/64 (84) 99 02/01/20 16:00 76 02/01/20 13:09 75 18 97 Room Air 70 18 95 02/01/20 13:09 70 18 95 Room Air 02/01/20 12:00 98.3 64 18 121/69 (86) 98 02/01/20 12:00 74 Intake and Output 02/01/20 02/02/20 19:00 07:00 Intake Total 480 ml Balance 480 ml Intake Oral 480 ml # Voids 2 3 # Bowel Movements 1 Laboratory Tests 02/01/20 16:35: Troponin I 0.004 02/02/20 00:10: Troponin I 0.004 02/02/20 05:45: White Blood Count [Pending], Red Blood Count [Pending], Hemoglobin [Pending], Hematocrit [Pending], Mean Corpuscular Volume [Pending], Mean Corpuscular Hemoglobin [Pending], Mean Corpuscular Hemoglobin Concent [Pending], Red Cell Distribution Width [Pending], Platelet Count [Pending], Mean Platelet Volume [ Pending], Neutrophils (%) (Auto) [Pending], Lymphocytes (%) (Auto) [Pending], Monocytes (%) (Auto) [Pending], Eosinophils (%) (Auto) [Pending], Basophils (%) (Auto) [Pending], Sodium Level 135L, Potassium Level 3.7, Chloride Level 98, Carbon Dioxide Level 26, Anion Gap 11, Blood Urea Nitrogen 28H, Creatinine 1.8H , Estimat Glomerular Filtration Rate 27.5, Glucose Level 172H, Calcium Level 8.9 Height (Feet): 5 Height (Inches): 3.00 Weight (Pounds): 156 Objective WDWN NAD clear breath sounds bilaterally without rhonchi or wheeze [id number] without MRG NABS nontender no HSM no CCE nonfocal Bulmaro Correa MD Feb 02, 2020 11:13
[2020-02-02 11:31] LABS: BASOPHILS % (AUTO) 0.7 % (0.0-2.0); EOSINOPHILS % (AUTO) 0.5 % (0.0-3.0); HEMATOCRIT 32.7 % (37.0-47.0); HEMOGLOBIN 11.1 G/DL (12.0-16.0); LYMPHOCYTES % (AUTO) 23.6 % (20.0-45.0); MEAN CORPUSCULAR VOLUME 88 FL (80-99); MONOCYTES % (AUTO) 7.8 % (1.0-10.0); NEUTROPHILS % (AUTO) 67.4 % (45.0-75.0); PLATELET COUNT 249 K/UL (150-450); RED BLOOD COUNT 3.71 M/UL (4.20-5.40); RED CELL DISTRIBUTION WIDTH 11.6 % (11.6-14.8); WHITE BLOOD COUNT 7.5 K/UL (4.8-10.8)
--- NOTE | 2020-02-02 12:10 | NUR ---
NURSE NOTES: Report received from Fe RN. Patient is observed in bed, awake, alert, oriented, and able to make needs known. Respiratory even and unlabored. Received discharge order from Dr. Correa, per Dr. Correa continue home medications, no new discharge meds. Reviewed home medications with patient. Educated the patient regarding discharge instructions and care, patient verbalized understanding. VSS. No c/o pain. IV site removed, asymptomatic, no hematoma and/or bleeding noted. Belongings list checked and returned. RN escorted patient to private vehicle. monitoring and evaluation advisor removed and returned.
--- NOTE | 2020-02-03 09:58 | Discharge Summary ---
Discharge Summary Discharge Summary _ DATE OF ADMISSION: 01/31/2020 DATE OF DISCHARGE: 02/02/2020 DISCHARGED BY: Dr. Correa REASON FOR ADMISSION: 74 years old female with past medical history of diabetes and hypertension, presented with chest and epigastric pain. Upon evaluation in emergency department patient was severely hypertensive with blood pressure 200/99. Patient was afebrile. Pulse oximetry was stable on room air. Patient was slightly tachypneic. Chest x-ray revealed no acute cardiopulmonary pathology. Cardiomegaly noted. CT scan of the abdomen and pelvis revealed no acute intra-abdominal pathology. Fatty liver was demonstrated. Colonic diverticulosis without evidence of diverticulitis. Stable 4 mm right basilar lung nodule. Laboratory work-up revealed no leukocytosis , stable hemoglobin, hematocrit and platelet count. Troponin negative. pro BNP 526. Sodium 133, potassium 3.3. BUN 20, creatinine 1.3. Glucose 266. Albumin 3.7. Urinalysis revealed pyuria , +3 leukocyte esterase and few bacteria; +3 protein , +3 glucose. In emergency department patient pancultured, received IV antibiotic and admitted for further management to telemetry floor. HOSPITAL COURSE: Patient admitted to telemetry floor. Serial troponin are negative. EKG revealed no acute ischemic changes. Patient was ruled out for acute myocardial infarction. Outpatient nuclear stress test was recommended. Antiplatelet therapy with Plavix and Lopid continued. Blood pressure was managed with ARB and calcium channel henrique. Blood pressure stabilized and prior to discharge 117/61. Supplemental oxygen provided and titrated to keep pulse oximetry above 92% Pulse oximetry remained stable on room air. Symbicort continued. DVT and GI prophylaxis provided. Urine culture revealed mixed gram-positive organism. No leukocytosis, no fevers, no dysuria. No need for further antibiotics. Blood sugar was managed with metformin. Sliding scale of insulin was on board as needed. Renal parameters and electrolytes were closely monitor ed, electrolytes/ potassium corrected . Nephrotoxic's were avoided. Supportive care provided. Pain management was addressed as needed. Patient was able to tolerate diet . Chest and abdominal pain resolved. Patient clinically stabilized and was ready for discharge. Recommended outpatient PET scan along with nuclear stress test. FINAL DIAGNOSES: Chest pain , possible acute coronary syndrome Epigastric pain Diabetes mellitus 4 mm R lung nodule Hypertension with initial hypertensive urgency-resolved Chronic renal insufficiency DISCHARGE MEDICATIONS: See Medication Reconciliation list. DISCHARGE INSTRUCTIONS: Patient was discharged home. Follow-up with a primary care provider in 1 week. Follow-up with outpatient testing as recommended. I have been assigned to dictate discharge summary for this account. I was not involved in the patient's management. Laurence Call NP Feb 03, 2020 09:58
== END 2020-02-02 12:05 | disposition home or self-care (01) | DRG 311 ==
LOC: EMR 21:14 → 2E 22:33 → EDBEDREQ 23:03 → 2E 02-01 10:55
DX: I24.9 Acute ischemic heart disease, unspecified (principal); N39.0 Urinary tract infection, site not specified; R11.0 Nausea; E87.5 Hyperkalemia; I10 Essential (primary) hypertension; I25.10 Atherosclerotic heart disease of native coronary artery without angina pectoris; K57.90 Diverticulosis of intestine, part unspecified, without perforation or abscess without bleeding; R10.13 Epigastric pain; R91.1 Solitary pulmonary nodule; I16.0 Hypertensive urgency; I12.9 Hypertensive chronic kidney disease with stage 1 through stage 4 chronic kidney disease, or unspecified chronic kidney disease; E11.22 Type 2 diabetes mellitus with diabetic chronic kidney disease; N18.9 Chronic kidney disease, unspecified
CPT/HCPCS: 36415; 71045; 74176; 80048; 80053; 81003; 83880; 84484; 85025; 87086; 94640; 94664; 96365; 96375; 99285; J1815; J2405; J8499

== ENCOUNTER 2020-04-13 19:06 | Inpatient (IN) | payer MEDICARE ==
[~2020-04-13] VITALS: Ht 157.5 cm; Wt 72.6 kg
--- NOTE | 2020-04-13 19:15 | NUR ---
ED Nurse Note: PT WALKED IN TO ED C/O CHEST PAIN THAT RADIATES TO BACK, REPORTING 8/10. PT STATES SHE IS ALSO HAVING HEADACHE 5/10 AT THIS TIME. AAOX4, AMBULATORY, ERMD AT BEDSIDE.
--- NOTE | 2020-04-13 19:20 | NUR ---
ED Nurse Note: BLOOD AND URINE COLLECTED AND SENT TO LAB. EKG DONE AT BEDSIDE. LINE ESTABLISHED WITH 22G ON RIGHT HAND, INTACT AND PATENT.
[2020-04-13 19:35] VITALS: BP 195/98
--- NOTE | 2020-04-13 19:39 | Emergency Room Report ---
History of Present Illness General Chief Complaint: Hypertension Source: Patient Present Illness HPI Patient is a 75-year-old female presents after increased chest and back pain. Reports having pain for several days worse with movement. Reports having pain to the entire chest as well as her entire back. Denies any fever. Denies any new cough. Had not been vomiting. Prior history of hypertension reports being compliant with her medications. Denies any increased leg swelling compared to normal. Allergies: Coded Allergies: No Known Allergies (Unverified , 01/17/16) COVID-19 Screening Contact w/high risk pt: No Recent Travel to affected area: No Experienced COVID-19 symptoms?: No COVID-19 Testing performed CASE ADVOCATE: No Patient History Past Medical History: see triage record Last Menstrual Period: na Now: No : 3 Para: 3 Reviewed Nursing Documentation: PMH: Agreed; PSxH: Agreed Nursing Documentation-PMH Hx Hypertension: Yes Hx COPD: Yes Hx Diabetes: Yes Hx Cancer: No Hx Gastrointestinal Problems: Yes - gastritis Review of Systems All Other Systems: negative except mentioned in HPI Physical Exam Vital Signs Date Time Temp Pulse Resp B/P (MAP) Pulse Ox O2 Delivery O2 Flow Rate FiO2 04/13/20 19:11 98.6 91 16 203/102 (135) 95 Room Air Sp02 EP Interpretation: reviewed, normal General Appearance: normal inspection, alert, GCS 15, mild distress, Chronically Ill Head: atraumatic ENT: normal ENT inspection, hearing grossly normal, normal voice Neck: normal inspection, full range of motion, supple, no bony tend Respiratory: normal inspection, lungs clear, normal breath sounds, no respiratory distress, no retraction, no wheezing Cardiovascular #1: regular rate, rhythm, no edema, edema - Edema Gastrointestinal: normal inspection, normal bowel sounds, non tender, soft, no guarding, no hernia Genitourinary: no CVA tenderness Musculoskeletal: normal inspection, back normal, normal range of motion Neurologic: alert, motor strength/tone normal, manufacturing engineering manager III-XII nml as tested, oriented x3, responsive, speech normal, normal inspection Psychiatric: normal inspection, judgement/insight normal, mood/affect normal Medical Decision Making Diagnostic Impression: Primary Impression: Chest pain Additional Impression: Hypertension ER Course Patient presented for chest discomfort. Differential diagnosis include was not limited to myocardial infarction, aortic dissection, pneumonia, coronavirus infection among others. Because of complexity of patient's case laboratory tests and imaging studies were ordered. EKG interpreted by me showed normal sinus rhythm with a rate of 95 with slight QT prolongation and low voltage no acute ST elevation was noted. Patient had negative troponin. She was given Lasix as well as KARIN inhibitor due to hypertension. Patient subsequently is chest pain-free. Patient appears to be stable for telemetry admission for rule out of acute coronary syndrome. Chest x-ray 1 view showed no evidence of pneumonia or pleural effusion with unremarkable mediastinum. Dr. Bulmaro Correa was contacted for inpatient management due to primary care physician. Laboratory Tests Test 04/13/20 19:30 White Blood Count 9.9 K/UL (4.8-10.8) Red Blood Count 3.44 M/UL (4.20-5.40) L Hemoglobin 10.5 G/DL (12.0-16.0) L Hematocrit 33.6 % (37.0-47.0) L Mean Corpuscular Volume 98 FL (80-99) Mean Corpuscular Hemoglobin 30.5 PG (27.0-31.0) Mean Corpuscular Hemoglobin Concent 31.2 G/DL (32.0-36.0) L Red Cell Distribution Width 14.1 % (11.6-14.8) Platelet Count 310 K/UL (150-450) Mean Platelet Volume 5.9 FL (6.5-10.1) L Neutrophils (%) (Auto) 69.0 % (45.0-75.0) Lymphocytes (%) (Auto) 22.0 % (20.0-45.0) Monocytes (%) (Auto) 6.3 % (1.0-10.0) Eosinophils (%) (Auto) 1.8 % (0.0-3.0) Basophils (%) (Auto) 0.9 % (0.0-2.0) D-Dimer 0.87 mg/L FEU (0.00-0.49) H Urine Color Yellow Urine Appearance Clear Urine pH 7 (4.5-8.0) Urine Specific [place] 1.005 (1.005-1.035) Urine Protein 3+ (NEGATIVE) H Urine Glucose (UA) Negative (NEGATIVE) Urine Ketones Negative (NEGATIVE) Urine Blood Negative (NEGATIVE) Urine Nitrite Negative (NEGATIVE) Urine Bilirubin Negative (NEGATIVE) Urine Urobilinogen Normal MG/DL (0.0-1.0) Urine Leukocyte Esterase Negative (NEGATIVE) Urine RBC 0-2 /HPF (0 - 2) Urine WBC 0-2 /HPF (0 - 2) Urine Squamous Epithelial Cells Few /LPF (NONE/OCC) Urine Bacteria Few /HPF (NONE) Sodium Level 140 MMOL/L (136-145) Potassium Level 3.0 MMOL/L (3.5-5.1) L Chloride Level 102 MMOL/L (98-107) Carbon Dioxide Level 27 MMOL/L (21-32) Anion Gap 11 mmol/L (5-15) Blood Urea Nitrogen 26 mg/dL (7-18) H Creatinine 1.9 MG/DL (0.55-1.30) H Estimated Glomerular Filtration Rate 25.7 mL/min (>60) Glucose Level 191 MG/DL (74-106) H Calcium Level 7.9 MG/DL (8.5-10.1) L Total Bilirubin 0.1 MG/DL (0.2-1.0) L Aspartate Amino Transferase (AST) 50 U/L (15-37) H Alanine Aminotransferase (ALT) 54 U/L (12-78) Alkaline Phosphatase 75 U/L (46-116) Troponin I 0.000 ng/mL (0.000-0.056) C-Reactive Protein, Quantitative 1.8 mg/dL (0.00-0.90) H Pro-B-Type Natriuretic Peptide 529 pg/mL (0-125) H Total Protein 7.8 G/DL (6.4-8.2) Albumin 3.5 G/DL (3.4-5.0) Globulin 4.3 g/dL Albumin/Globulin Ratio 0.8 (1.0-2.7) L Lipase 264 U/L (73-393) Last Vital Signs Date Time Temp Pulse Resp B/P (MAP) Pulse Ox O2 Delivery O2 Flow Rate FiO2 04/13/20 19:11 98.6 91 16 203/102 (135) 95 Room Air Status: unchanged Disposition: ADMITTED INPATIENT Condition: Stable Jose Glez MD Apr 13, 2020 19:39
[2020-04-13] MEDS ORDERED: Acetaminophen 500mg (ES) tab ORAL ONE (19:45)
--- NOTE | 2020-04-13 19:50 | NUR ---
ED Nurse Note: XR AT BEDSIDE
[2020-04-13 19:52] LABS: BASOPHILS % (AUTO) 0.9 % (0.0-2.0); EOSINOPHILS % (AUTO) 1.8 % (0.0-3.0); HEMATOCRIT 33.6 % (37.0-47.0); HEMOGLOBIN 10.5 G/DL (12.0-16.0); MEAN CORPUSCULAR VOLUME 98 FL (80-99); MONOCYTES % (AUTO) 6.3 % (1.0-10.0); PLATELET COUNT 310 K/UL (150-450); RED BLOOD COUNT 3.44 M/UL (4.20-5.40); RED CELL DISTRIBUTION WIDTH 14.1 % (11.6-14.8); WHITE BLOOD COUNT 9.9 K/UL (4.8-10.8)
[2020-04-13 19:58] LABS: ANION GAP 11 mmol/L (5-15); BLOOD UREA NITROGEN 26 mg/dL (7-18); CALCIUM 7.9 MG/DL (8.5-10.1); CARBON DIOXIDE 27 MMOL/L (21-32); CHLORIDE 102 MMOL/L (98-107); CREATININE 1.9 MG/DL (0.55-1.30); SODIUM 140 MMOL/L (136-145)
[2020-04-13 20:05] LABS: APPEARANCE,URINE CLEAR; BILIRUBIN, URINE NEGATIVE (NEGATIVE); GLUCOSE, URINE (UA) NEGATIVE (NEGATIVE); KETONES,URINE NEGATIVE (NEGATIVE); LEUKOCYTE ESTERASE ,URINE NEGATIVE (NEGATIVE); NITRITE,URINE NEGATIVE (NEGATIVE); PH,URINE 7 (4.5-8.0); PROTEIN,URINE 3+ (NEGATIVE); UROBILINOGEN,URINE NORMAL MG/DL (0.0-1.0)
[2020-04-13 20:08] LABS: ALANINE AMINOTRANSFERASE 54 U/L (12-78); ALBUMIN 3.5 G/DL (3.4-5.0); ALBUMIN/GLOBULIN RATIO 0.8 (1.0-2.7); ALKALINE PHOSPHATASE 75 U/L (46-116); ASPARTATE AMINO TRANSFERASE 50 U/L (15-37); BILIRUBIN,TOTAL 0.1 MG/DL (0.2-1.0)
[2020-04-13 20:09] LABS: COLOR,URINE YELLOW
[2020-04-13 21:20] VITALS: BP 182/65
--- NOTE | 2020-04-13 21:20 | NUR ---
ED Nurse Note: GAVE REPORT TO NAHOMI STRICKLAND.
[2020-04-13 21:40] VITALS: BP 162/71
--- NOTE | 2020-04-13 21:40 | NUR ---
ED Nurse Note: patient refused to send vargas to hospital safe. pt wishes to hold on to valuables at this time. patient belonging form signed by patient.
--- NOTE | 2020-04-13 21:43 | NUR ---
NURSE NOTES: Received pt from ED via [facility]. Pt transferred from [place] to bed in - without any incident. hospital monitor is in placed; pt is NSR. Pt is A/Ox4. Pinson pt to room and unit. Received report from Kuldeep Barboza RN and EM French. IV site intact, asymptomatic, and patent. Belongings list checked and signed. Bed is in the lowest position and locked. Call light and bedside table is within reach. Will contact Dr. Correa for admission orders.
[2020-04-13 21:45] VITALS: BP 175/87
--- NOTE | 2020-04-13 21:50 | NUR ---
TRANSFER TO FLOOR: Patient transferred to [facility] via gurney in stable condition as ordered, per dr. Correa. Report given to Vandana STRICKLAND. Belongings sent with patient.
--- NOTE | 2020-04-13 22:04 | NUR ---
NURSE NOTES: Received admission orders from Dr. Correa. Will note and carry out.
[2020-04-13] MEDS: Enalaprilat 2.5mg/2ml Inj IV ONE ×2 (22:13→22:21)
--- NOTE | 2020-04-13 23:18 | NUR ---
NURSE NOTES: Pt was admitted with $600 in vargas (5 $100 bills, and 2 $50 bills), two yellow metal rings with stones, 1 pinkish yellow metal MK watch, and one pair of white metal earrings. Counted vargas with supervisor molding, Loraine, and security, Murtaza while pt observed. Pt put vargas and belongings in secured bag and watched as supervisor molding sealed bag. Secured belongings bag left with supervisor molding and security.
[2020-04-13] MEDS ORDERED: Tylenol #3 tab (300mg/30mg) ORAL PRN (23:45)
[2020-04-13] MEDS ORDERED: traMADol 50mg tab ORAL PRN (23:45)
[2020-04-14] VITALS: BP 150/65
[2020-04-14] MEDS: Albuterol 90mcg Inhaler 8gm INH SCH ×5 (01:00→19:02)
[2020-04-14 04:00] VITALS: BP_SYST 117; BP_SYST 146; BP_DIAS 60; BP_DIAS 63
[2020-04-14] MEDS: NovoLOG Insulin Flexpen SUBQ SCH ×4 (06:30→22:01)
--- NOTE | 2020-04-14 07:35 | NUR ---
NURSE NOTES: Gave hand-off report to EM Cooper. Reported d-dimer: 0.87 and potassium: 3.0. playground monitor working, cardiac leads in place, bed in lowest and locked position, bed alarm activated, left hand 22g IV saline locked, IV site intact, no redness, no leaking, no swelling. Patient in stable condition, no acute distress noted. Patient alert and oriented x4.
[2020-04-14 08:00] VITALS: BP 143/67
--- NOTE | 2020-04-14 08:30 | NUR ---
NURSE NOTES: Received report from EM Ross and EM Espinosa. Pt A/O x4. No s/s of acute respiratory and cardiac distress. On room air. Sl on left hand 22G, patent and intact. Bed in low position, side rails up x2 and call light within reach. Will continue with plan of care.
[2020-04-14] MEDS ORDERED: Lyrica 50mg cap ORAL SCH (09:00)
[2020-04-14] MEDS: Lyrica 75mg cap ORAL SCH ×2 (09:13→17:25)
--- NOTE | 2020-04-14 10:59 | Diagnostic Imaging Report ---
Procedure: XRAY Chest 1v Reason for study: Reason For Exam: SOB Comparison films: 01/31/2020. FINDINGS: A single one view chest is obtained. Vascularity is normal. The lung corado are clear bilaterally. There is cardiomegaly. CP angles are sharp. The bony thorax appear unremarkable. IMPRESSION: Cardiomegaly. No acute disease.
[2020-04-14 12:00] VITALS: BP 153/70
--- NOTE | 2020-04-14 13:06 | Diagnostic Imaging Report ---
EXAM: MRI MRI Chest wo/w Contrast TECHNIQUE: MR examination of the chest includes axial and sagittal oblique AA are T1-weighted images and FIESTA gated images. After administration of 7.5 cc of Gadavist, additional coronal images obtained. CLINICAL HISTORY: Chest pain. Evaluate for dissection. COMPARISON: None FINDINGS: Studies limited by cardiac pulsation and respiratory motion artifact. Also due to patient's size and renal function, only a small amount of contrast was able to be given and postcontrast images are extremely limited with very poor signal to noise and very limited delineation of aortic lumen. From the inversion recovery and fiesta images, the thoracic aorta appears normal in caliber. Maximal AP diameter of the ascending aorta is 3.1 cm. Maximal diameter of the descending aorta is 2.5 cm. There is no obvious dissection or intimal flap demonstrated on the black blood images. White blood images are suboptimal. Incidentally noted is an ovoid anterior mediastinal lesion likely an enlarged lymph node measuring 2.7 cm. IMPRESSION: VERY LIMITED EXAM DUE TO CARDIAC PULSATION AND RESPIRATORY MOTION ARTIFACTS. ALSO LIMITED CONTRAST VOLUME RESULTS IN POOR POSTCONTRAST IMAGES WHICH ARE VERY NOISY. NONANEURYSMAL THORACIC AORTA. NO DEFINABLE INTIMAL FLAP OR DISSECTION ON THE BLACK BLOOD IMAGES. WHITE BLOOD AND POSTCONTRAST IMAGES ARE SUBOPTIMAL. INCIDENTAL OVOID LESION IN THE ANTERIOR MEDIASTINUM PERHAPS AN ENLARGED LYMPH NODE.
--- NOTE | 2020-04-14 14:21 | Diagnostic Imaging Report ---
EXAM: NUCLEAR MEDICINE VENTILATION/PERFUSION SCAN. CLINICAL HISTORY: Chest pain and shortness of breath. Elevated d-dimer. COMPARISON: None TECHNIQUE: Ventilation/perfusion studies performed. 40 mCi of technetium 99 DTPA is used for the ventilation portion. 4.8 mCi technetium 99 MAA was used for the perfusion portion. SPECT images are obtained in multiple planes. FINDINGS: There are blotchy heterogeneous uptake identified in both lungs on both perfusion and ventilation images. The heterogeneity are not segmental defects. They are matched on both ventilation and perfusion. There is no mismatch abnormality demonstrated. Cardiac silhouette is within normal limits. There is no effusion. IMPRESSION: BY MODIFIED PIOPED CRITERIA, STUDY IS OF LOW PROBABILITY FOR PULMONARY EMBOLISM.
--- NOTE | 2020-04-14 14:31 | NUR ---
CASE MANAGEMENT:REVIEW 75 YR OLD FEMALE WALKED IN TO ER CC: BACK AND CHEST PAIN SI: CHEST PAIN. SOB. UNCONTROLLED HTN 98.6 91 16 203/102 95% ON RA H/H-10.5/33.6 K-3.0 BUN+26 CR+1.9 GLUCOSE+191 IS: IV HYDRALAZINE IV VASOTEC TYLENOL PO IV LASIX KCL PO BLOOD CX CHEST XRAY : TO TELEMETRY IS: PLAVIX PO QD LOPID PO BID LYRICA PO BID Addendum: 04/14/20 at 1529 by NATE SWARTZ LVN LVN INTERQUAL CRITERIA MET
[2020-04-14 16:00] VITALS: BP 125/71
--- NOTE | 2020-04-14 19:30 | NUR ---
NURSE NOTES: Received hand-off report from EM Cooper. Patient is in stable condition, alert and oriented x 4, manager monitoring working, cardiac leads in place. Bed in lowest and locked position, bed alarm activated, call light within reach.
--- NOTE | 2020-04-14 19:59 | NUR ---
HAND-OFF: Report given to EM Ross and EM Espinosa.Endorsed plan of care.
[2020-04-14 20:00] VITALS: BP 126/58
--- NOTE | 2020-04-14 22:00 | Consultation ---
DATE OF CONSULTATION: 04/14/2020 NEPHROLOGY CONSULTATION CONSULTING PHYSICIAN: Christine Christian MD ATTENDING PHYSICIAN: Bulmaro Correa MD REASON FOR CONSULTATION: Elevated BUN and creatinine. HISTORY OF PRESENT ILLNESS: This is a 75-year-old female, who was admitted due to chest pain. I am asked to see the patient for elevation of BUN and creatinine. PAST MEDICAL HISTORY: Hypertensive cardiovascular disease, COPD, type 2 diabetes mellitus. MEDICATIONS: Tylenol as needed, albuterol inhaler, amlodipine, clonidine, Plavix, enalapril as needed, Lasix, gemfibrozil, hydralazine, insulin sliding scale, Lyrica, Ultram. ALLERGIES: No known drug allergies. FAMILY HISTORY: Unremarkable. SOCIAL HISTORY: She lives at home. HABITS: She is a nonsmoker, nondrinker. There is no history of illicit drug abuse. REVIEW OF SYSTEMS: HEENT: Hearing and eyesight are normal. ENDOCRINE: Significant for type 2 diabetes mellitus. RESPIRATORY: She denies shortness of breath, cough, or hemoptysis. CARDIAC: She has atypical chest pain. GASTROINTESTINAL: No history of hematochezia, melena, hematemesis, diarrhea, or constipation. PHYSICAL EXAMINATION: GENERAL: This is an elderly obese female, who is in no acute distress. VITAL SIGNS: Blood pressure 125/71, pulse 74 regular, respirations 22, temperature is 98.6. HEENT: The head is normocephalic and atraumatic. Pupils are equal, round, and reactive to light and accommodation consensually. NECK: Supple. Trachea is midline. There is no lymphadenopathy or thyromegaly. LUNGS: Clear to auscultation and percussion. HEART: Regular rate and rhythm without rubs, murmurs, or gallops. ABDOMEN: Soft and nontender. Bowel sounds were active. EXTREMITIES: No clubbing, cyanosis, or edema. NEUROLOGIC: She is alert. There were no gross focal findings. LABORATORY AND ANCILLARY DATA: CBC shows white count of 9.9, hemoglobin 10.5. Chemistry, electrolytes, potassium 3, otherwise within normal limits, BUN 26, creatinine 1.6. Imaging reports, MRI of the chest unremarkable. ASSESSMENT: 1. Chronic kidney disease, etiology unclear. 2. Hypertensive cardiovascular disease. 3. COPD. 4. Type 2 diabetes mellitus. PLAN: Follow up on the patient's chemistry. Thank you, Dr. Correa, for letting me participate in the care of this patient. Christine Christian M.D. DR: CATIA JOB#: [id number] CC:
--- NOTE | 2020-04-14 23:45 | History and Physical Report ---
DATE OF ADMISSION: 04/13/2020 REASON FOR ADMISSION: Hypertension, out of control and chest pain. HISTORY OF PRESENT ILLNESS: This is a 75-year-old female, who presents again with chest pain and back pain. The patient notes pain over the past several days with movement. The patient has had prior chest pain and underwent a rubidium PET, which was negative. The patient with history of hypertension and hypertensive heart disease. The patient as well has been fairly noncompliant with her medications. She does have multiple medical problems and multiple risk factors. The patient does have underlying renal insufficiency, which prohibits the ability to give contrast. The patient's care discussed and reviewed. No fevers or chills. No nausea or vomiting. PAST MEDICAL HISTORY: Notable for hypertension, asthma, diabetes, gastritis, hypertriglyceridemia. MEDICATIONS: Reviewed. ALLERGIES: Reviewed. SOCIAL HISTORY: Nonsmoker, nondrinker, lives with family, ambulatory. FAMILY HISTORY: Noncontributory. REVIEW OF SYSTEMS: All 10 points reviewed and discussed. MEDICATIONS/ALLERGIES: Reviewed and reconciled. PHYSICAL EXAMINATION: GENERAL: The patient is a well-developed female. VITAL SIGNS: Blood pressure improved 146/63, 14, 98,4, 98%. HEENT: Negative. NECK: Supple. LUNGS: Fairly clear and symmetric. CARDIAC: S1, S2. Regular rate and rhythm. Positive S4. Positive systolic murmur. ABDOMEN: Soft, nontender, nondistended. EXTREMITIES: No cyanosis, clubbing, or edema. NEUROLOGIC: Grossly nonfocal. Alert. LABORATORY DATA: Reviewed. Hemoglobin 10.5. Potassium is 3, BUN and creatinine of 26 and 1.9. Blood sugar is 191. Troponin negative. BNP 529. IMPRESSION: 1. Chest pain, previously with negative rubidium PET. Consider aortic dissection. Consider PE. 2. Chronic renal failure. 3. Mild fluid overload. 4. Asthma. 5. Anemia of chronic disease. RECOMMENDATIONS: Supportive care. V/Q scan and MRI of the chest to further evaluate and assess for aortic dissection. The patient is not a candidate for contrast. We will follow clinically and recommend, and obtain renal evaluation to optimize renal function and discharge once stable. Bulmaro Correa M.D. DR: TYSON JOB#: [id number] CC: NEYMAR
[2020-04-15] VITALS: BP 148/68
[2020-04-15] MEDS: Albuterol 90mcg Inhaler 8gm INH SCH ×2 (01:07→06:13)
[2020-04-15 04:00] VITALS: BP 133/73
[2020-04-15] MEDS: NovoLOG Insulin Flexpen SUBQ SCH (05:45)
[2020-04-15 06:18] LABS: BASOPHILS % (AUTO) 0.8 % (0.0-2.0); EOSINOPHILS % (AUTO) 2.7 % (0.0-3.0); HEMATOCRIT 33.8 % (37.0-47.0); HEMOGLOBIN 10.3 G/DL (12.0-16.0); LYMPHOCYTES % (AUTO) 24.4 % (20.0-45.0); MEAN CORPUSCULAR VOLUME 101 FL (80-99); MONOCYTES % (AUTO) 7.9 % (1.0-10.0); NEUTROPHILS % (AUTO) 64.3 % (45.0-75.0); PLATELET COUNT 288 K/UL (150-450); RED BLOOD COUNT 3.34 M/UL (4.20-5.40); RED CELL DISTRIBUTION WIDTH 14.4 % (11.6-14.8); WHITE BLOOD COUNT 7.6 K/UL (4.8-10.8)
[2020-04-15 06:21] LABS: ANION GAP 7 mmol/L (5-15); BLOOD UREA NITROGEN 21 mg/dL (7-18); CARBON DIOXIDE 30 MMOL/L (21-32); CHLORIDE 106 MMOL/L (98-107); CREATININE 1.6 MG/DL (0.55-1.30); POTASSIUM 3.7 MMOL/L (3.5-5.1); SODIUM 143 MMOL/L (136-145)
--- NOTE | 2020-04-15 07:10 | NUR ---
HAND-OFF: Report given to Omayra Angeles RN. Patient in stable condition, no acute distress noted. Patient alert and oriented x4. cardiac monitor working, cardiac leads in place, bed in lowest and locked position, bed alarm activated, call light within reach. Plan of care endorsed.
--- NOTE | 2020-04-15 07:25 | NUR ---
NURSE NOTES: Received report from EM Espinosa. Pt A/O x4, no s/sx of acute distress, breathing even and unlabored in RA. Pt is ambulatory. Iv site DC'd by pt. Will start a new IV if pt will be staying. Pt on observation, will f/u with MD if he wants to change the admitting order to in-patient. Bed on lowest position, call light within reach. Will continue plan of care.
--- NOTE | 2020-04-15 07:30 | NUR ---
NURSE NOTES: Informed Dr Correa about the blood culture result.
--- NOTE | 2020-04-15 07:45 | CDS Physician Query ---
Clarification is required for compliance, coding accuracy, and to reflect severity of illness for this patient. Dear Dr. Bulmaro Correa M.D. Date: 04/15/20 CDS: Keo Albert The findings below have been reported on this patient's medical record: "75-year-old female, who presents again with chest pain and back pain. The patient notes pain over the past several days with movement." IMPRESSION:Chest pain,Consider aortic dissection, Consider PE, Chronic renal failure, Mild fluid overload. Asthma, Anemia of chronic disease. Lab Value finding of: Potassium level (04/13): 3.0 [ 3.5-5.1] Medications: Potassium Chloride 40meq PO (04/13) Please Clarify the diagnosis associated with this finding: [ ] Hyponatremia [ ] Finding is not significant [ ] Other Present on Admission: [] Yes [] No [] Clinically Undetermined Physician signature Date Please also document in your Progress Notes and/or Discharge Summary and indicate if the condition was present on admission. MTDD
--- NOTE | 2020-04-15 07:55 | CDS Physician Query ---
Clarification is required for compliance, coding accuracy, and to reflect severity of illness for this patient. Dear Dr. Bulmaro Correa M.D. Date: 04/15/20 CDS: Keo Albert The findings below have been reported on this patient's medical record: "75-year-old female, who presents again with chest pain and back pain. The patient notes pain over the past several days with movement." IMPRESSION:Chest pain,Consider aortic dissection, Consider PE, Chronic renal failure, Mild fluid overload. Asthma, Anemia of chronic disease. Lab Value finding of: Potassium level (04/13): 3.0 [ 3.5-5.1] Medications: Potassium Chloride 40meq PO (04/13) Please Clarify the diagnosis associated with this finding: [ ] Hypokalemia [ ] Finding is not significant [ ] Other Present on Admission: [] Yes [] No [] Clinically Undetermined Physician signature Date Lab Value/Radiographic finding of: Please Clarify the diagnosis associated with this finding: Diagnosis: Present on Admission: [] Yes [] No [] Clinically Undetermined Physician signature Date Please also document in your Progress Notes and/or Discharge Summary and indicate if the condition was present on admission. MTDD
[2020-04-15 08:00] VITALS: BP 147/85
--- NOTE | 2020-04-15 08:46 | General Progress Note ---
Assessment/Plan Assessment/Plan: IMPRESSION: 1. Chest pain, negative work up 2. Chronic renal failure. 3. Mild fluid overload. 4. Asthma. 5. Anemia of chronic disease. PLAN dc home care as is home health adjust bp meds and assess d/w family may need repeat MRI as outpatient due to inconclusive results cannot give contrast with CKD impression, plan, and exam edited and reviewed in detail care discussed with RN Subjective Allergies: Coded Allergies: No Known Allergies (Unverified , 01/17/16) Subjective care noted work up overall negative Objective Last 24 Hour Vital Signs Date Time Temp Pulse Resp B/P (MAP) Pulse Ox O2 Delivery O2 Flow Rate FiO2 04/15/20 08:00 98.0 93 19 147/85 (105) 97 04/15/20 04:00 98.0 90 19 133/73 (93) 96 04/15/20 04:00 91 04/15/20 00:00 88 04/15/20 00:00 98.2 89 20 148/68 (94) 96 04/14/20 23:09 89 04/14/20 21:00 Room Air 04/14/20 20:00 98.1 73 20 126/58 (80) 94 04/14/20 16:00 98.6 74 22 125/71 (89) 98 04/14/20 12:00 97.9 89 20 153/70 (97) 96 04/14/20 09:13 79 143/67 04/14/20 09:00 Room Air Intake and Output 04/14/20 04/15/20 19:00 07:00 Intake Total 720 ml 150 ml Balance 720 ml 150 ml Intake Oral 720 ml Other 150 ml # Voids 3 2 Laboratory Tests 04/15/20 05:50: White Blood Count 7.6, Red Blood Count 3.34L, Hemoglobin 10.3L, Hematocrit 33.8L , Mean Corpuscular Volume 101H, Mean Corpuscular Hemoglobin 30.8, Mean Corpuscular Hemoglobin Concent 30.5L, Red Cell Distribution Width 14.4, Platelet Count 288, Mean Platelet Volume 6.0L, Neutrophils (%) (Auto) 64.3, Lymphocytes (%) (Auto) 24.4, Monocytes (%) (Auto) 7.9, Eosinophils (%) (Auto) 2.7, Basophils (%) (Auto) 0.8, Sodium Level 143, Potassium Level 3.7, Chloride Level 106, Carbon Dioxide Level 30, Anion Gap 7, Blood Urea Nitrogen 21H, Creatinine 1.6H, Estimat Glomerular Filtration Rate 31.4, Glucose Level 163H, Calcium Level 8.0L Height (Feet): 5 Height (Inches): 2.00 Weight (Pounds): 160 Objective GENERAL: The patient is a well-developed female. NAD HEENT: Negative. NECK: Supple. LUNGS: Fairly clear and symmetric. CARDIAC: S1, S2. Regular rate and rhythm. Positive S4. Positive systolic murmur. ABDOMEN: Soft, nontender, nondistended. EXTREMITIES: No cyanosis, clubbing, or edema. NEUROLOGIC: Grossly nonfocal. Alert. Bulmaro Correa MD Apr 15, 2020 08:46
[2020-04-15 09:09] VITALS: BP 147/85
[2020-04-15] MEDS: Lyrica 75mg cap ORAL SCH (09:09)
--- NOTE | 2020-04-15 09:35 | NUR ---
*-*DISCHARGE PLANNING*-* PATIENT HAS BEEN REFERRED TO: [facility] P: [phone]
--- NOTE | 2020-04-15 11:08 | Nephrology Progress Note ---
Assessment/Plan Plan CP - w/u in progress CKD - check labs Subjective Subjective No new c/o Objective Objective Last 24 Hour Vital Signs Date Time Temp Pulse Resp B/P (MAP) Pulse Ox O2 Delivery O2 Flow Rate FiO2 04/15/20 09:09 93 147/85 04/15/20 09:00 Room Air 04/15/20 08:00 98.0 93 19 147/85 (105) 97 04/15/20 07:45 92 04/15/20 04:00 98.0 90 19 133/73 (93) 96 04/15/20 04:00 91 04/15/20 00:00 88 04/15/20 00:00 98.2 89 20 148/68 (94) 96 04/14/20 23:09 89 04/14/20 21:00 Room Air 04/14/20 20:00 98.1 73 20 126/58 (80) 94 04/14/20 16:00 98.6 74 22 125/71 (89) 98 04/14/20 12:00 97.9 89 20 153/70 (97) 96 Intake and Output 04/14/20 04/15/20 19:00 07:00 Intake Total 720 ml 150 ml Balance 720 ml 150 ml Intake Oral 720 ml Other 150 ml # Voids 3 2 Laboratory Tests 04/15/20 05:50: White Blood Count 7.6, Red Blood Count 3.34L, Hemoglobin 10.3L, Hematocrit 33.8L , Mean Corpuscular Volume 101H, Mean Corpuscular Hemoglobin 30.8, Mean Corpuscular Hemoglobin Concent 30.5L, Red Cell Distribution Width 14.4, Platelet Count 288, Mean Platelet Volume 6.0L, Neutrophils (%) (Auto) 64.3, Lymphocytes (%) (Auto) 24.4, Monocytes (%) (Auto) 7.9, Eosinophils (%) (Auto) 2.7, Basophils (%) (Auto) 0.8, Sodium Level 143, Potassium Level 3.7, Chloride Level 106, Carbon Dioxide Level 30, Anion Gap 7, Blood Urea Nitrogen 21H, Creatinine 1.6H, Estimat Glomerular Filtration Rate 31.4, Glucose Level 163H, Calcium Level 8.0L Height (Feet): 5 Height (Inches): 2.00 Weight (Pounds): 160 Objective Obese CV RR Lungs CTA Abd pendulous. SNT. BS + E No CCE Christine Christian MD Apr 15, 2020 11:08
--- NOTE | 2020-04-15 11:35 | NUR ---
NURSE NOTES: Pt left the unit in stable condition, picked up by the family member. Belongings checked. Pt DC'd IV before AM shift, no bleeding noted. Tele monitor removed. DC instructions discussed with pt, verbalized understanding.
--- NOTE | 2020-04-15 13:55 | NUR ---
*-*DISCHARGE PLANNED*-* PATIENT HAS BEEN ACCEPTED WITH: [facility] P: [phone] S/W [facility] PATIENT.
--- NOTE | 2020-04-17 14:20 | Discharge Summary ---
Discharge Summary Discharge Summary _ DATE OF ADMISSION: 04/13/2020 DATE OF DISCHARGE: 04/15/2020 DISCHARGED BY: Dr. Mike Correa CONSULTANTS: Dr. Christine Christian BRIEF HOSPITAL COURSE: Patient is a 75-year-old female, who presented with chest and back pain. The patient noted pain over the past several days with movement. She had undergone prior rubidium PET scan which was negative. Patient has a history of hypertension and hypertensive heart disease. Patient has been fairly noncompliant with her medications. She has an underlying renal insufficiency which prohibited ability to give contrast. Upon evaluation at the ED, blood pressure was elevated to 203/102. Heart rate was normal. Blood work did not show any leukocytosis. Hemoglobin and hematocrit were stable. Potassium 3.0. BUN was 26 and creatinine 1.9. D- dimer 0.87. EKG showed normal sinus rhythm with a rate of 95 prolongation and low voltage. No acute ST elevation was noted by ED physician. Troponin was negative. proBNP 529. She was given Lasix as well as KARIN inhibitor due to hypertension. She was given potassium supplementation. Chest x-ray did not show any evidence of pneumonia or pleural effusion with unremarkable mediastinum. Due to her risk factors, she was admitted for further evaluation. She was admitted to monitored floor. She was given antiplatelet therapy. She was given Norvasc for BP control. Blood glucose was monitored and was placed on insulin sliding scale. She was given Proventil inhaler. D-dimer was elevated. She underwent a V/Q lung scan. Results showed low probability for pulmonary embolism. Chest MRI showed non-aneurysmal thoracic aorta, although, limited study due to cardiac pulsation and respiratory motion artifact. Also had limited contrast resulting in poor images. Patient had negative work-up. Kidney function was stable. She was recommended need to repeat MRI as outpatient due to inconclusive results. She was discharged home with home health. FINAL DIAGNOSES: Chest pain with previous negative rubidium PET scan; with consideration for aortic dissection or pulmonary embolism Chronic renal failure Mild fluid overload Asthma Anemia of chronic disease DISPOSITION: DC home with home health. DISCHARGE MEDICATIONS: Refer to Discharge Medication List. DISCHARGE INSTRUCTIONS: Follow-up in a week. I have been assigned to complete a discharge summary on this account, I was not involved with the patient's management.--PAULINA Aguilera Jacqueline Robles NP Apr 17, 2020 14:20
--- NOTE | 2020-04-26 15:20 | Coder Physician Query ---
Clarification is required for compliance, coding accuracy, and to reflect severity of illness for this patient Dear Dr. Correa Date: 04/26/20 Cardroom Drawing Runner/CDS' Name: DuniaLUZ BRIEF HOSPITAL COURSE: Patient is a 75-year-old female, who presented with chest and back pain. She was admitted to monitored floor. She was given antiplatelet therapy. She was given Norvasc for BP control. Blood glucose was monitored and was placed on insulin sliding scale. She was given Proventil inhaler. D-dimer was elevated. She underwent a V/Q lung scan. Results showed low probability for pulmonary embolism. Chest MRI showed non-aneurysmal thoracic aorta, although, limited study due to cardiac pulsation and respiratory motion artifact. Also had limited contrast resulting in poor images. Patient had negative work-up. Kidney function was stable. She was recommended need to repeat MRI as outpatient due to inconclusive results. FINAL DIAGNOSES: Chest pain with previous negative rubidium PET scan; with consideration for aortic dissection or pulmonary embolism Chronic renal failure Mild fluid overload Asthma Please document the suspected etiology of Chest Pain: [] Anxiety [] Cancer [] Pneumonia [] Costochondritis [] Pneumothorax [] GERD/Esophagitis [] Pulmonary embolism [] Other: [] Unable to determine Physician signature Date Please also document in your Progress Notes and/or Discharge Summary and indicate if the condition was present on admission. NEYMAR
== END 2020-04-15 11:35 | disposition home health service (06) | DRG 206 ==
LOC: EMR 19:48 → 2E 20:55 → EDBEDREQ 21:21 → 2E 04-14 13:48
DX: M94.0 Chondrocostal junction syndrome [Tietze] (principal); I13.0 Hypertensive heart and chronic kidney disease with heart failure and stage 1 through stage 4 chronic kidney disease, or unspecified chronic kidney disease; M54.9 Dorsalgia, unspecified; J44.9 Chronic obstructive pulmonary disease, unspecified; D63.8 Anemia in other chronic diseases classified elsewhere; E11.22 Type 2 diabetes mellitus with diabetic chronic kidney disease; N18.9 Chronic kidney disease, unspecified; E87.70 Fluid overload, unspecified; Z79.02 Long term (current) use of antithrombotics/antiplatelets; Z79.4 Long term (current) use of insulin
CPT/HCPCS: 36415; 71045; 71552; 78579; 78580; 80048; 80053; 81003; 82962; 83690; 83880; 84484; 85025; 85379; 86140; 87040; 87181; 93005; 96374; 96375; 99285; A9503; A9585; J1815; J8499

== ENCOUNTER 2020-05-07 18:18 | Inpatient (IN) | payer MEDICARE ==
[~2020-05-07] VITALS: Ht 157.5 cm; Wt 72.6 kg
[2020-05-07 18:40] VITALS: BP 165/71
[2020-05-07] MEDS ORDERED: Metoclopramide 10mg/2ml Inj IVP ONE (18:45)
[2020-05-07] MEDS ORDERED: Morphine Sulfate 4mg/ml Inj (IV USE ONLY) IVP ONE (18:45)
[2020-05-07] MEDS ORDERED: Omnipaque-300 100ml vial INJ PRN (18:45)
[2020-05-07] MEDS ORDERED: DiphenhydrAMINE 50mg/ml Inj IVP ONE (18:45)
--- NOTE | 2020-05-07 19:02 | Emergency Room Report ---
History of Present Illness General Chief Complaint: Abdominal Pain Source: Patient Present Illness HPI Patient presents with epigastric abdominal pain. It began day before yesterday. She believes it was related to spicy food that she ate at that time. She feels burning pain at this time that is epigastric not radiating towards her back and rates this as a 9 out of 10 pain. She has been nauseated and vomiting. She was able to keep down her blood pressure medication this morning. She is status post cholecystectomy. She seems to agree that she has had pancreatitis in the past however there is no documentation of this. She denies change in her bowels and denies dysuria. She has not been vomiting blood or coffee grounds. The patient's been admitted to the hospital recently for chest pain and hypertension. No fevers, chills, sore throat, chest pain, palpitations, dysuria, shortness of breath, joint pain, rashes, depression, anxiety, visual changes, dizziness, headache. Allergies: Coded Allergies: No Known Allergies (Unverified , 01/17/16) COVID-19 Screening Contact w/high risk pt: No Recent Travel to affected area: No Experienced COVID-19 symptoms?: Yes COVID-19 Testing performed COVERED BUTTON MAKER: No Patient History Past Medical History: see triage record, old chart reviewed Social History: Denies: smoking, alcohol use, drug use Social History Narrative From home, born in [facility] Last Menstrual Period: na Now: No Reviewed Nursing Documentation: PMH: Agreed; PSxH: Agreed Nursing Documentation-PMH Past Medical History: No History, Except For Hx Hypertension: Yes Hx COPD: Yes Hx Diabetes: Yes Hx Cancer: No Hx Gastrointestinal Problems: Yes - gastritis Review of Systems All Other Systems: negative except mentioned in HPI Physical Exam Vital Signs Date Time Temp Pulse Resp B/P (MAP) Pulse Ox O2 Delivery O2 Flow Rate FiO2 05/07/20 18:23 98.2 84 17 165/71 (102) 96 Room Air Sp02 EP Interpretation: reviewed, normal General Appearance: well appearing, no apparent distress - But in pain, GCS 15 , non-toxic, obese Head: normocephalic Eyes: bilateral eye normal inspection, bilateral eye PERRL, bilateral eye EOMI , bilateral eye Scleral Injection ENT: dry mucus membranes Neck: supple Respiratory: lungs clear, normal breath sounds Cardiovascular #1: regular rate, rhythm Cardiovascular #2: 2+ radial (R) Gastrointestinal: normal inspection, normal bowel sounds, no mass, non- distended, no guarding, no rebound, tenderness - Epigastric Genitourinary: no CVA tenderness Musculoskeletal: back normal, normal range of motion, no calf tenderness, gait/ station normal Neurologic: alert, oriented x3, grossly normal Psychiatric: mood/affect normal - But in pain Skin: no rash, warm/dry Medical Decision Making Diagnostic Impression: Primary Impression: Abdominal pain Qualified Codes: R10.13 - Epigastric pain Additional Impression: Renal insufficiency ER Course Patient presents with epigastric pain of 3 days duration with vomiting. Differential includes acute myocardial infarction, gastritis, gastroenteritis, pancreatitis, diverticulitis amongst others. Patient evaluated with EKG, chest x-ray and labs. A CT of the abdomen is ordered. Patient is slightly dehydrated at this time and will be rehydrated with half-normal saline. The patient is given metoclopramide, Benadryl, Pepcid and morphine. EKG sinus rhythm left axis deviation low voltage. Chest x-ray without infiltrate. Labs with renal insufficiency and slightly low potassium. White count normal. Due to renal insufficiency CT contrast canceled. CT abdomen without surgical pathology. See below Patient improved but still has pain and nausea. Patient to the hospital for further evaluation and repeat abdominal exams. Etiology of pain and vomiting unclear at this time. Laboratory Tests Test 05/07/20 19:04 05/07/20 20:09 White Blood Count 8.7 K/UL (4.8-10.8) Red Blood Count 3.41 M/UL (4.20-5.40) L Hemoglobin 10.4 G/DL (12.0-16.0) L Hematocrit 32.3 % (37.0-47.0) L Mean Corpuscular Volume 95 FL (80-99) Mean Corpuscular Hemoglobin 30.6 PG (27.0-31.0) Mean Corpuscular Hemoglobin Concent 32.3 G/DL (32.0-36.0) Red Cell Distribution Width 13.3 % (11.6-14.8) Platelet Count 256 K/UL (150-450) Mean Platelet Volume 6.8 FL (6.5-10.1) Neutrophils (%) (Auto) 73.2 % (45.0-75.0) Lymphocytes (%) (Auto) 19.1 % (20.0-45.0) L Monocytes (%) (Auto) 6.4 % (1.0-10.0) Eosinophils (%) (Auto) 0.7 % (0.0-3.0) Basophils (%) (Auto) 0.6 % (0.0-2.0) Prothrombin Time 12.5 SEC (9.30-11.50) H Prothrombin Time INR 1.1 (0.9-1.1) Activated Partial Thromboplast Time 25 SEC (23-33) Sodium Level 146 MMOL/L (136-145) H Potassium Level 3.0 MMOL/L (3.5-5.1) L Chloride Level 105 MMOL/L (98-107) Carbon Dioxide Level 26 MMOL/L (21-32) Anion Gap 15 mmol/L (5-15) Blood Urea Nitrogen 20 mg/dL (7-18) H Creatinine 1.7 MG/DL (0.55-1.30) H Estimated Glomerular Filtration Rate 29.3 mL/min (>60) Glucose Level 113 MG/DL (74-106) H Calcium Level 8.3 MG/DL (8.5-10.1) L Total Bilirubin 0.2 MG/DL (0.2-1.0) Aspartate Amino Transferase (AST) 21 U/L (15-37) Alanine Aminotransferase (ALT) 21 U/L (12-78) Alkaline Phosphatase 49 U/L (46-116) Total Protein 8.2 G/DL (6.4-8.2) Albumin 4.3 G/DL (3.4-5.0) Globulin 3.9 g/dL Albumin/Globulin Ratio 1.1 (1.0-2.7) Lipase 169 U/L (73-393) Urine Color Pale yellow Urine Appearance Clear Urine pH 7 (4.5-8.0) Urine Specific Mcloud 1.010 (1.005-1.035) Urine Protein 3+ (NEGATIVE) H Urine Glucose (UA) Negative (NEGATIVE) Urine Ketones 1+ (NEGATIVE) H Urine Blood Negative (NEGATIVE) Urine Nitrite Negative (NEGATIVE) Urine Bilirubin Negative (NEGATIVE) Urine Urobilinogen Normal MG/DL (0.0-1.0) Urine Leukocyte Esterase Negative (NEGATIVE) Urine RBC 0-2 /HPF (0 - 2) Urine WBC 0-2 /HPF (0 - 2) Urine Squamous Epithelial Cells Few /LPF (NONE/OCC) Urine Bacteria Few /HPF (NONE) EKG Diagnostic Results Rate: normal Rhythm: NSR ST Segments: no acute changes - Left axis deviation low voltage Rhythm Strip Diag. Results EP Interpretation: yes Rhythm: NSR, no PVC's, no ectopy Chest X-Ray Diagnostic Results Chest X-Ray Diagnostic Results : Chest X-Ray Ordered: Yes # of Views/Limited/Complete: 1 View Indication: Other EP Interpretation: Yes Interpretation: no consolidation, no effusion, no pneumothorax, other - Enlarged heart Impression: Other Electronically Signed by: Electronically signed by Pankaj Holguin MD CT/MRI/US Diagnostic Results CT/MRI/US Diagnostic Results : Imaging Test Ordered: Abdomen pelvis Last Vital Signs Date Time Temp Pulse Resp B/P (MAP) Pulse Ox O2 Delivery O2 Flow Rate FiO2 05/08/20 00:00 98.2 70 18 160/74 (102) 99 05/07/20 23:53 Room Air Status: improved Disposition: ADMITTED INPATIENT Condition: Serious Pankaj Holguin MD May 07, 2020 19:02
--- NOTE | 2020-05-07 19:36 | Diagnostic Imaging Report ---
EXAM: XR Chest, 1 View CLINICAL HISTORY: ABD PAIN TECHNIQUE: Frontal view of the chest. COMPARISON: Chest radiograph dated 04/13/2020 FINDINGS: Lungs: Mildly prominent interstitial lung markings. Pleural space: Unremarkable. No pneumothorax. Heart: Enlarged cardiac silhouette. Mediastinum: Unremarkable. Bones/joints: Degenerative changes of the bilateral acromioclavicular joints. Vasculature: Tortuous aorta. Upper abdomen: Cholecystectomy clips. IMPRESSION: Enlarged cardiac silhouette with mildly prominent interstitial lung markings suggesting cardiogenic pulmonary edema. No focal airspace disease.
[2020-05-07 19:51] LABS: ANION GAP 15 mmol/L (5-15); BLOOD UREA NITROGEN 20 mg/dL (7-18); CALCIUM 8.3 MG/DL (8.5-10.1); CARBON DIOXIDE 26 MMOL/L (21-32); CHLORIDE 105 MMOL/L (98-107); CREATININE 1.7 MG/DL (0.55-1.30); SODIUM 146 MMOL/L (136-145)
[2020-05-07 19:55] LABS: ALANINE AMINOTRANSFERASE 21 U/L (12-78); ALBUMIN 4.3 G/DL (3.4-5.0); ALBUMIN/GLOBULIN RATIO 1.1 (1.0-2.7); ALKALINE PHOSPHATASE 49 U/L (46-116); ASPARTATE AMINO TRANSFERASE 21 U/L (15-37); BILIRUBIN,TOTAL 0.2 MG/DL (0.2-1.0)
[2020-05-07 19:56] LABS: BASOPHILS % (AUTO) 0.6 % (0.0-2.0); EOSINOPHILS % (AUTO) 0.7 % (0.0-3.0); HEMATOCRIT 32.3 % (37.0-47.0); HEMOGLOBIN 10.4 G/DL (12.0-16.0); LYMPHOCYTES % (AUTO) 19.1 % (20.0-45.0); MEAN CORPUSCULAR VOLUME 95 FL (80-99); MONOCYTES % (AUTO) 6.4 % (1.0-10.0); NEUTROPHILS % (AUTO) 73.2 % (45.0-75.0); PLATELET COUNT 256 K/UL (150-450); RED BLOOD COUNT 3.41 M/UL (4.20-5.40); RED CELL DISTRIBUTION WIDTH 13.3 % (11.6-14.8); WHITE BLOOD COUNT 8.7 K/UL (4.8-10.8)
[2020-05-07 19:59] LABS: INR 1.1 (0.9-1.1)
[2020-05-07 20:01] VITALS: BP 166/75
[2020-05-07 20:43] LABS: APPEARANCE,URINE CLEAR; BILIRUBIN, URINE NEGATIVE (NEGATIVE); COLOR,URINE PALE YELLOW; GLUCOSE, URINE (UA) NEGATIVE (NEGATIVE); KETONES,URINE 1+ (NEGATIVE); LEUKOCYTE ESTERASE ,URINE NEGATIVE (NEGATIVE); NITRITE,URINE NEGATIVE (NEGATIVE); PH,URINE 7 (4.5-8.0); PROTEIN,URINE 3+ (NEGATIVE); UROBILINOGEN,URINE NORMAL MG/DL (0.0-1.0)
--- NOTE | 2020-05-07 20:44 | Diagnostic Imaging Report ---
EXAM: CT Abdomen and Pelvis With Intravenous Contrast CLINICAL HISTORY: ABD PAIN TECHNIQUE: Axial computed tomography images of the abdomen and pelvis with intravenous contrast. CTDI is 9.6 mGy and DLP is 457.4 mGy-cm. One or more of the following dose reduction techniques were used: automated exposure control, adjustment of the mA and/or kV according to patient size, use of iterative reconstruction technique. COMPARISON: CT abdomen and pelvis dated 01/31/2020 FINDINGS: Lung bases: Stable left lower lobe pulmonary nodule measuring 4 mm. Heart: Coronary artery disease. ABDOMEN: Liver: Scattered calcifications of the liver likely granulomas. Hepatic steatosis. Gallbladder and bile ducts: Prior cholecystectomy. No ductal dilation. Pancreas: Unremarkable. No mass. No ductal dilation. Spleen: Unremarkable. No splenomegaly. Adrenals: Unremarkable. No mass. Kidneys and ureters: Stable appearing 5.4 x 5.1 cm inferior left simple renal cyst. Bilateral punctate densities within the renal parenchyma likely representing tiny nephroliths. No hydronephrosis. Stomach and bowel: Colonic diverticulosis. No pericolonic inflammatory change. No obstruction. No mucosal thickening. PELVIS: Appendix: No findings to suggest acute appendicitis. Bladder: Unremarkable. No mass. Reproductive: Prior hysterectomy. ABDOMEN and PELVIS: Intraperitoneal space: Unremarkable. No free air. No significant fluid collection. Bones/joints: Scattered degenerative changes of the visualized spine. No acute fracture. No dislocation. Soft tissues: Gluteal soft tissue calcifications likely secondary to injection granulomas. Vasculature: Atherosclerotic vascular disease. No abdominal aortic aneurysm. Lymph nodes: Unremarkable. No enlarged lymph nodes. IMPRESSION: 1. No acute abnormalities of the abdomen and pelvis. 2. Diverticulosis without evidence of diverticulitis. 3. Hepatic steatosis. 4. Additional chronic findings as above.
[2020-05-07 22:15] VITALS: BP 138/72
[2020-05-07] MEDS ORDERED: Morphine Sulfate 4mg/ml Inj (IV USE ONLY) IVP PRN (23:15)
[2020-05-07] MEDS ORDERED: Morphine Sulfate 2mg/ml Inj(IV/IM USE ONLY) IVP PRN (23:15)
[2020-05-07] MEDS ORDERED: traMADol 50mg tab ORAL PRN (23:15)
[2020-05-08] VITALS: BP 160/74
[2020-05-08] MEDS: Albuterol 90mcg Inhaler 8gm INH SCH ×4 (01:00→18:00)
[2020-05-08 04:00] VITALS: BP 147/74
[2020-05-08 05:24] LABS: BASOPHILS % (AUTO) 0.6 % (0.0-2.0); HEMATOCRIT 30.5 % (37.0-47.0); HEMOGLOBIN 9.6 G/DL (12.0-16.0); LYMPHOCYTES % (AUTO) 14.2 % (20.0-45.0); MEAN CORPUSCULAR VOLUME 96 FL (80-99); MONOCYTES % (AUTO) 6.2 % (1.0-10.0); PLATELET COUNT 218 K/UL (150-450); RED BLOOD COUNT 3.18 M/UL (4.20-5.40); RED CELL DISTRIBUTION WIDTH 12.5 % (11.6-14.8); WHITE BLOOD COUNT 9.8 K/UL (4.8-10.8)
[2020-05-08 05:31] LABS: ANION GAP 9 mmol/L (5-15); BLOOD UREA NITROGEN 19 mg/dL (7-18); CALCIUM 7.8 MG/DL (8.5-10.1); CARBON DIOXIDE 28 MMOL/L (21-32); CHLORIDE 106 MMOL/L (98-107); CREATININE 1.5 MG/DL (0.55-1.30); POTASSIUM 3.6 MMOL/L (3.5-5.1); SODIUM 143 MMOL/L (136-145)
[2020-05-08] MEDS: NovoLOG Insulin Flexpen SUBQ SCH ×4 (06:23→20:13)
[2020-05-08 08:00] VITALS: BP 156/84
[2020-05-08] MEDS ORDERED: Tubing IV Secondary IV ONE (08:02)
[2020-05-08] MEDS: Irbesartan 150mg tablet ORAL SCH (08:22)
[2020-05-08] MEDS: Pantoprazole Inj IV SCH ×2 (08:22→20:11)
[2020-05-08] MEDS: Lyrica 50mg cap ORAL SCH ×3 (08:23→17:58)
[2020-05-08] MEDS ORDERED: guaiFENesin 100mg/5ml Liq ud PO SCH (09:00)
--- NOTE | 2020-05-08 11:00 | History and Physical Report ---
DATE OF ADMISSION: 05/07/2020 REASON FOR ADMISSION: Abdominal pain. HISTORY OF PRESENT ILLNESS: This is a 75-year-old female, apparently was eating some spicy food. The patient noted to have epigastric abdominal pain over one day. The patient notes burning and discomfort. The patient also has some nausea and vomiting. The pain was significant and the pain has not subsided. The patient presented to the emergency room. She underwent CT of the abdomen, which was not significant. She had no evidence of bleeding. The patient was seen by GI and the care was discussed. The patient admitted for overnight evaluation. PAST MEDICAL HISTORY: Notable for asthma, diabetes, gastritis, reflux, hypercholesterolemia, neuropathy. MEDICATIONS: Reviewed. ALLERGIES: Reviewed. SOCIAL HISTORY: The patient lives with family, well supported. Nonsmoker and nondrinker. REVIEW OF SYSTEMS: All 10 points reviewed and otherwise negative. PHYSICAL EXAMINATION: GENERAL: A well-developed female, overall comfortable at present. VITAL SIGNS: Reviewed. Blood pressure 147/74, pulse 71, respiratory rate 18, sats 95%, temperature 98.4. HEENT: Negative. NECK: Supple. LUNGS: Fairly clear and symmetric. CARDIAC: S1, S2. Regular rate and rhythm. ABDOMEN: Minimally tender in the epigastrium. No distention. Normal bowel sounds. EXTREMITIES: No cyanosis, clubbing, or edema. NEUROLOGIC: Grossly nonfocal. LABORATORY DATA: Reviewed. Hemoglobin 9.6, hematocrit 30. Electrolytes fairly negative. BUN and creatinine 19 and 1.5. Blood sugar slightly elevated at 134. Liver enzymes normal. CT of the abdomen, fairly negative. IMPRESSION: 1. Abdominal pain, likely due to acute gastritis. 2. History of diabetes. 3. Hypertension. 4. Hypertriglyceridemia. RECOMMENDATIONS: Support as it is. Start diet and advance. GI followup appreciated. We will monitor and recommend further. Hope to discharge the patient in the a.m. for ongoing outpatient care. Bulmaro Correa M.D. DR: NESTOR JOB#: [id number] CC: NEYMAR
[2020-05-08 12:00] VITALS: BP 127/80
[2020-05-08 16:00] VITALS: BP 153/83
--- NOTE | 2020-05-08 18:59 | Consultation ---
DATE OF CONSULTATION: 05/08/2020 GASTROENTEROLOGY CONSULTATION CHIEF COMPLAINT: Abdominal pain. HISTORY OF PRESENT ILLNESS: This is a very pleasant female admitted to the hospital complaining of epigastric abdominal pain going on for about 10 days. She had multiple in the past. She attributed to having a very spicy chilly foods and that started the whole thing, vomiting. Denies any hematemesis. Last bowel movement yesterday. She has had multiple colonoscopies according to her. In the ER, she had a CT of the abdomen and pelvis which showed no evidence of any acute abnormality or other cause for abdominal pain. The patient is having some diverticulosis and fatty liver. PAST MEDICAL HISTORY: 1. Hypertension. 2. Arthritis. 3. Gastritis. 4. Diabetes. ALLERGIES: No known drug allergies. MEDICATIONS: Please see medication reconciliation list. SOCIAL HISTORY: The patient denies any tobacco, alcohol, or drug abuse. PAST SURGICAL HISTORY: Cholecystectomy many years ago. FAMILY HISTORY: Noncontributory. REVIEW OF SYSTEMS: A 10-point review of systems was performed and pertinent positives in HPI. PHYSICAL EXAMINATION: VITAL SIGNS: Temperature 98.4, pulse 71, respirations 18, blood pressure is 147/74. HEENT: Normocephalic and atraumatic. Sclerae anicteric. NECK: Supple. No evidence of obvious lymphadenopathy. CARDIOVASCULAR: Regular rate and rhythm. Plus S1-S2. LUNGS: Decreased breath sounds bilaterally diffusely based on supine exam. ABDOMEN: Soft. There is a scar in the midline from prior cholecystectomy. There is tenderness to palpation in the epigastric area. No rebound. No guarding. No peritoneal sign. EXTREMITIES: No cyanosis, no clubbing, no edema. LABORATORY DATA: White count is 9.8, hemoglobin 9.6, hematocrit 30, platelet count is 218. Chem-7, sodium 143, potassium 3.6, BUN 19, creatinine 1.5. ASSESSMENT AND PLAN: This is a 75-year-old female with epigastric abdominal pain possibly secondary to severe gastritis. Other differential would be gastric ulcerations. The patient also had normocytic anemia that can be from renal insufficiency with creatinine of 1.5. Our plan will be to start the patient on diet and advance as tolerated. We will start the patient on Protonix 40 mg q.12h. Send the stool for OB. Anemia workup. Consider endoscopy if the patient's symptoms does not improve.. Armand Ramos M.D. DR: SAIRA JOB#: [id number] CC:
[2020-05-08 20:00] VITALS: BP 150/88
[2020-05-09] VITALS: BP 161/92
[2020-05-09] MEDS: Albuterol 90mcg Inhaler 8gm INH SCH ×2 (00:55→06:29)
[2020-05-09 04:00] VITALS: BP 162/98
[2020-05-09] MEDS: NovoLOG Insulin Flexpen SUBQ SCH ×2 (05:33→11:23)
[2020-05-09 07:10] LABS: BASOPHILS % (AUTO) 0.5 % (0.0-2.0); EOSINOPHILS % (AUTO) 0.7 % (0.0-3.0); HEMATOCRIT 29.9 % (37.0-47.0); HEMOGLOBIN 9.6 G/DL (12.0-16.0); LYMPHOCYTES % (AUTO) 26.8 % (20.0-45.0); MEAN CORPUSCULAR VOLUME 96 FL (80-99); MONOCYTES % (AUTO) 8.8 % (1.0-10.0); NEUTROPHILS % (AUTO) 63.2 % (45.0-75.0); PLATELET COUNT 225 K/UL (150-450); RED BLOOD COUNT 3.11 M/UL (4.20-5.40); RED CELL DISTRIBUTION WIDTH 12.6 % (11.6-14.8); WHITE BLOOD COUNT 8.3 K/UL (4.8-10.8)
[2020-05-09 07:20] LABS: INR 1.1 (0.9-1.1)
[2020-05-09 07:34] LABS: ALBUMIN 3.4 G/DL (3.4-5.0); ALBUMIN/GLOBULIN RATIO 0.9 (1.0-2.7); ALKALINE PHOSPHATASE 42 U/L (46-116); AMYLASE 77 U/L (25-115); ANION GAP 12 mmol/L (5-15); ASPARTATE AMINO TRANSFERASE 41 U/L (15-37); BILIRUBIN,TOTAL 0.3 MG/DL (0.2-1.0); BLOOD UREA NITROGEN 14 mg/dL (7-18); CARBON DIOXIDE 24 MMOL/L (21-32); CHLORIDE 105 MMOL/L (98-107); CREATININE 1.3 MG/DL (0.55-1.30); POTASSIUM 3.2 MMOL/L (3.5-5.1); SODIUM 141 MMOL/L (136-145)
[2020-05-09 08:05] VITALS: BP 139/75
--- NOTE | 2020-05-09 08:11 | General Progress Note ---
Assessment/Plan Assessment/Plan: IMPRESSION: 1. Abdominal pain, likely due to acute gastritis. 2. History of diabetes. 3. Hypertension. 4. Hypertriglyceridemia. PLAN dc home bland diet maintain same monitor labs after dc confirm meds on follow up in the office impression, plan, and exam edited and reviewed in detail care discussed with RN Subjective Allergies: Coded Allergies: No Known Allergies (Unverified , 01/17/16) Subjective care noted better tolerating po Objective Last 24 Hour Vital Signs Date Time Temp Pulse Resp B/P (MAP) Pulse Ox O2 Delivery O2 Flow Rate FiO2 05/09/20 04:00 98.0 87 19 162/98 (119) 95 05/09/20 00:00 98.8 84 19 161/92 (115) 95 05/08/20 21:00 Room Air 05/08/20 20:00 99.7 81 19 150/88 (108) 95 05/08/20 16:00 98.5 81 19 153/83 (106) 94 05/08/20 12:00 98.5 76 19 127/80 (96) 94 05/08/20 09:00 Room Air 05/08/20 08:23 80 156/84 05/08/20 08:22 156/84 Intake and Output 05/08/20 05/09/20 19:00 07:00 Intake Total 1000 ml 940 ml Balance 1000 ml 940 ml Intake Oral 240 ml IV Total 1000 ml 700 ml # Voids 5 3 # Bowel Movements 1 1 Laboratory Tests 05/08/20 11:19: POC Whole Blood Glucose 136H 05/08/20 16:12: POC Whole Blood Glucose 196H 05/08/20 20:07: POC Whole Blood Glucose 160H 05/09/20 05:05: White Blood Count 8.3, Red Blood Count 3.11L, Hemoglobin 9.6L, Hematocrit 29.9L , Mean Corpuscular Volume 96, Mean Corpuscular Hemoglobin 30.9, Mean Corpuscular Hemoglobin Concent 32.2, Red Cell Distribution Width 12.6, Platelet Count 225, Mean Platelet Volume 6.6, Neutrophils (%) (Auto) 63.2, Lymphocytes (% ) (Auto) 26.8, Monocytes (%) (Auto) 8.8, Eosinophils (%) (Auto) 0.7, Basophils ( %) (Auto) 0.5, Prothrombin Time 12.4H, Prothromb Time International Ratio 1.1, Sodium Level 141, Potassium Level 3.2L, Chloride Level 105, Carbon Dioxide Level 24, Anion Gap 12, Blood Urea Nitrogen 14, Creatinine 1.3, Estimat Glomerular Filtration Rate 39.9, Glucose Level 111H, Hemoglobin A1c 7.5H, Calcium Level 8.0L, Iron Level [Pending], Unsaturated Iron Binding [Pending], Total Bilirubin 0.3, Aspartate Amino Transf (AST/SGOT) 41H, Alanine Aminotransferase (ALT/SGPT) [Pending], Alkaline Phosphatase 42L, Total Protein 7.4, Albumin 3.4, Globulin 4.0, Albumin/Globulin Ratio 0.9L, Amylase Level 77, Lipase 119, Folate [Pending] 05/09/20 05:33: POC Whole Blood Glucose 124H Height (Feet): 5 Height (Inches): 2.00 Weight (Pounds): 160 Objective GENERAL: A well-developed female, overall comfortable at present. HEENT: Negative. NECK: Supple. LUNGS: Fairly clear and symmetric. CARDIAC: S1, S2. Regular rate and rhythm. ABDOMEN: Minimally tender in the epigastrium. No distention. Normal bowel sounds. EXTREMITIES: No cyanosis, clubbing, or edema. NEUROLOGIC: Grossly nonfocal. Bulmaro Correa MD May 09, 2020 08:11
[2020-05-09 08:49] LABS: % IRON SATURATION 30 % (15-50); IRON 77 ug/dL (50-175); TOTAL IRON BINDING CAPACITY 258 ug/dL (250-450)
[2020-05-09] MEDS: Lyrica 50mg cap ORAL SCH ×2 (08:50→15:44)
[2020-05-09] MEDS: Irbesartan 150mg tablet ORAL SCH (08:50)
[2020-05-09] MEDS: Pantoprazole Inj IV SCH (08:51)
--- NOTE | 2020-05-09 09:44 | General Progress Note ---
Assessment/Plan Assessment/Plan: Assessment - resolved abd pain - obesity - HTN - DM - DJD Recommendation - po as tolerated - PPI - d/c planning - advised to get outpatient EGD Subjective Allergies: Coded Allergies: No Known Allergies (Unverified , 01/17/16) Subjective Feels OK no further abd pain tolerating PO Objective Last 24 Hour Vital Signs Date Time Temp Pulse Resp B/P (MAP) Pulse Ox O2 Delivery O2 Flow Rate FiO2 05/09/20 08:50 82 139/75 05/09/20 08:50 139/75 05/09/20 08:05 97.8 82 20 139/75 (96) 93 05/09/20 04:00 98.0 87 19 162/98 (119) 95 05/09/20 00:00 98.8 84 19 161/92 (115) 95 05/08/20 21:00 Room Air 05/08/20 20:00 99.7 81 19 150/88 (108) 95 05/08/20 16:00 98.5 81 19 153/83 (106) 94 05/08/20 12:00 98.5 76 19 127/80 (96) 94 Intake and Output 05/08/20 05/09/20 19:00 07:00 Intake Total 1000 ml 940 ml Balance 1000 ml 940 ml Intake Oral 240 ml IV Total 1000 ml 700 ml # Voids 5 3 # Bowel Movements 1 1 Laboratory Tests 05/08/20 11:19: POC Whole Blood Glucose 136H 05/08/20 16:12: POC Whole Blood Glucose 196H 05/08/20 20:07: POC Whole Blood Glucose 160H 05/09/20 05:05: White Blood Count 8.3, Red Blood Count 3.11L, Hemoglobin 9.6L, Hematocrit 29.9L , Mean Corpuscular Volume 96, Mean Corpuscular Hemoglobin 30.9, Mean Corpuscular Hemoglobin Concent 32.2, Red Cell Distribution Width 12.6, Platelet Count 225, Mean Platelet Volume 6.6, Neutrophils (%) (Auto) 63.2, Lymphocytes (% ) (Auto) 26.8, Monocytes (%) (Auto) 8.8, Eosinophils (%) (Auto) 0.7, Basophils ( %) (Auto) 0.5, Prothrombin Time 12.4H, Prothromb Time International Ratio 1.1, Sodium Level 141, Potassium Level 3.2L, Chloride Level 105, Carbon Dioxide Level 24, Anion Gap 12, Blood Urea Nitrogen 14, Creatinine 1.3, Estimat Glomerular Filtration Rate 39.9, Glucose Level 111H, Hemoglobin A1c 7.5H, Calcium Level 8.0L, Iron Level 77, Total Iron Binding Capacity 258, Percent Iron Saturation 30, Unsaturated Iron Binding 181, Total Bilirubin 0.3, Aspartate Amino Transf (AST/SGOT) 41H, Alanine Aminotransferase (ALT/SGPT) [ Pending], Alkaline Phosphatase 42L, Total Protein 7.4, Albumin 3.4, Globulin 4.0 , Albumin/Globulin Ratio 0.9L, Amylase Level 77, Lipase 119, Folate 44.3 05/09/20 05:33: POC Whole Blood Glucose 124H Height (Feet): 5 Height (Inches): 2.00 Weight (Pounds): 160 Objective Obese woman NCAT supple CTA RR abd obese no edema Austen Kirk MD May 09, 2020 09:44
[2020-05-09 09:50] LABS: ALANINE AMINOTRANSFERASE 37 U/L (12-78)
[2020-05-09 12:00] VITALS: BP 152/78
[2020-05-09] MEDS ORDERED: Lyrica 50mg cap ORAL SCH (14:00)
[2020-05-09 16:00] VITALS: BP 149/62
--- NOTE | 2020-05-09 18:02 | Diagnostic Imaging Report ---
Indication: Right upper extremity edema and pain Technique: Grayscale and duplex images of the right upper extremity veins Comparison: none Findings: Grayscale and duplex images demonstrate absence of flow within the right cephalic vein in the forearm. The cephalic vein above the elbow is patent. Elsewhere, grayscale and duplex images demonstrate no evidence of intraluminal thrombus. Normal phasic Doppler waveforms. Normal compressibility. Impression: Occlusion, likely chronic, of the cephalic vein within the forearm. No evidence of acute deep venous thrombosis
--- NOTE | 2020-05-10 11:03 | Discharge Summary ---
Discharge Summary Discharge Summary _ DATE OF ADMISSION: 05/07/2020 DATE OF DISCHARGE: 05/09/2020 DISCHARGED BY: Dr. Correa REASON FOR ADMISSION: 75 years old female with past medical history of diabetes mellitus, asthma, acid reflux, hypercholesterolemia, gastritis, neuropathy, apparently was eating spicy food. Patient reported epigastric abdominal discomfort for 1 day. Pain reported as burning, nonradiating with associated nausea and nonbloody nonbilious vomiting. Pain did not improve , and patient subsequently presented to emergency room for further evaluation. CT scan of the abdomen revealed no significant findings. No evidence of bleeding. Laboratory work-up revealed no leukocytosis ,hemoglobin 10.4, hematocrit 32.3 platelet count 256. Potassium 3.0 sodium 146. BUN 20, creatinine 1.7. Stable LFT and lipase. Urinalysis revealed no evidence of urinary tract infection +3 protein. Chest x-ray demonstrated enlarged cardiac silhouette with mildly prominent interstitial lung markings, no focal airspace disease. In the emergency room she received liter of IV fluid, analgesic, Pepcid , antiemetic ; potassium was replaced. Patient subsequently admitted for further management CONSULTANTS: GI specialist Dr. Kirk [facility] COURSE: Patient admitted to medical surgical floor. Home medication resumed. GI consult was requested. Patient initially was on the IV fluids and started on clear liquid diet, Diet tolerance was closely monitored. Antiemetic were on board as needed. Pain management was addressed. GI specialist follow. GI prophylaxis provided. Pain resolved. Diet was advanced as tolerated. Patient was able to tolerate diet , no further nausea or vomiting. Patient was advised to have outpatient EGD. Blood pressure and blood sugar remained stable with current treatment. Creatinine from initial 1.7 down to 1.3, likely had a mild dehydration due to nausea and vomiting , which improved with IV hydration. Patient clinically stabilized and was ready for discharged home . FINAL DIAGNOSES: Abdominal pain likely due to acute gastritis Diabetes Hypertension Hypertriglyceridemia Degenerative joint disease DISCHARGE MEDICATIONS: See Medication Reconciliation list. DISCHARGE INSTRUCTIONS: Patient was discharged home. Follow-up with a primary care provider ole suggs. I have been assigned to dictate discharge summary for this account. I was not involved in the patient's management. Laurence Call NP May 10, 2020 11:03
== END 2020-05-09 17:04 | disposition home or self-care (01) | DRG 392 ==
LOC: EMR 18:50 → 3E 19:11 → EDBEDREQ 21:19 → 3E 22:42 → UNDODISIN 05-09 12:25
DX: K29.00 Acute gastritis without bleeding (principal); I10 Essential (primary) hypertension; E78.1 Pure hyperglyceridemia; J45.909 Unspecified asthma, uncomplicated; K21.9 Gastro-esophageal reflux disease without esophagitis; E11.9 Type 2 diabetes mellitus without complications; M19.90 Unspecified osteoarthritis, unspecified site; Z90.49 Acquired absence of other specified parts of digestive tract
CPT/HCPCS: 36415; 71045; 74176; 80048; 80053; 81003; 82150; 82746; 82962; 83036; 83540; 83550; 83690; 85025; 85610; 85730; 87081; 93005; 93971; 96361; 96374; 96375; 99285; J1815; J2405; J2765; J7030; J8499

== ENCOUNTER 2020-06-19 09:55 | Inpatient (IN) | payer MEDICARE ==
[~2020-06-19] VITALS: Ht 154.9 cm; Wt 72.3 kg
[2020-06-19] MEDS ORDERED: Aspirin Baby 81mg ORAL ONE (10:15)
[2020-06-19 10:44] VITALS: BP 161/89
[2020-06-19 10:59] LABS: BASOPHILS % (AUTO) 0.6 % (0.0-2.0); EOSINOPHILS % (AUTO) 2.4 % (0.0-3.0); HEMATOCRIT 31.7 % (37.0-47.0); HEMOGLOBIN 10.4 G/DL (12.0-16.0); LYMPHOCYTES % (AUTO) 14.1 % (20.0-45.0); MEAN CORPUSCULAR VOLUME 93 FL (80-99); MONOCYTES % (AUTO) 6.9 % (1.0-10.0); PLATELET COUNT 222 K/UL (150-450); RED BLOOD COUNT 3.39 M/UL (4.20-5.40); WHITE BLOOD COUNT 9.6 K/UL (4.8-10.8)
[2020-06-19 11:06] LABS: ANION GAP 17 mmol/L (5-15); BLOOD UREA NITROGEN 33 mg/dL (7-18); CALCIUM 8.5 MG/DL (8.5-10.1); CARBON DIOXIDE 18 MMOL/L (21-32); CHLORIDE 109 MMOL/L (98-107); CREATININE 2.1 MG/DL (0.55-1.30); POTASSIUM 3.5 MMOL/L (3.5-5.1); SODIUM 144 MMOL/L (136-145)
[2020-06-19 11:10] LABS: ALANINE AMINOTRANSFERASE 31 U/L (12-78); ALBUMIN 3.6 G/DL (3.4-5.0); ALBUMIN/GLOBULIN RATIO 0.9 (1.0-2.7); ALKALINE PHOSPHATASE 79 U/L (46-116); ASPARTATE AMINO TRANSFERASE 22 U/L (15-37); BILIRUBIN,TOTAL 0.6 MG/DL (0.2-1.0)
--- NOTE | 2020-06-19 11:39 | Diagnostic Imaging Report ---
EXAM: XR Chest, 1 View CLINICAL HISTORY: CP TECHNIQUE: Frontal view of the chest. COMPARISON: Chest x-ray 05/07/20 FINDINGS: Lungs: Mild central vascular congestion. No consolidation. Pleural space: Query tiny right pleural effusion. No pneumothorax. Heart: Cardiomegaly. Mediastinum: Unremarkable. Bones/joints: Unremarkable. IMPRESSION: Mild central vascular congestion. Query tiny right pleural effusion. Consider mild CHF.
--- NOTE | 2020-06-19 12:52 | Emergency Room Report ---
History of Present Illness General Chief Complaint: Chest Pain Source: Patient Present Illness HPI 75-year-old female with history of hypertension, diabetes, CAD on Plavix here with chest pain. Patient says that this morning she awoke feeling chest pain and shortness of breath. Pain is pressure-like, located in the substernal region, does not otherwise radiate. No headaches, vision changes, fevers, chills, palpitation, back pain, abdominal pain, nausea, vomiting, diarrhea, dysuria. Allergies: Coded Allergies: No Known Allergies (Unverified , 01/17/16) COVID-19 Screening Contact w/high risk pt: No Recent Travel to affected area: No Experienced COVID-19 symptoms?: No COVID-19 Testing performed FOOD SELECTOR: No Nursing Documentation-PMH Hx Hypertension: Yes - high cholesterol Hx COPD: Yes Hx Diabetes: Yes Hx Cancer: No Hx Gastrointestinal Problems: Yes - gastritis Physical Exam Vital Signs Date Time Temp Pulse Resp B/P (MAP) Pulse Ox O2 Delivery O2 Flow Rate FiO2 06/19/20 10:14 98.1 78 20 161/89 (113) 99 Room Air Medical Decision Making Diagnostic Impression: Primary Impression: Chest pain Additional Impression: CHF (congestive heart failure) ER Course EKG: EKG: NSR, no ischemia, intervals WNL. No ectopy Rhythm strip: patient monitored for arrhythmias - no malignant dysrhythmias, runs of PVCs, nor pauses noted Laboratory Tests Test 06/19/20 10:20 White Blood Count 9.6 K/UL (4.8-10.8) Red Blood Count 3.39 M/UL (4.20-5.40) L Hemoglobin 10.4 G/DL (12.0-16.0) L Hematocrit 31.7 % (37.0-47.0) L Mean Corpuscular Volume 93 FL (80-99) Mean Corpuscular Hemoglobin 30.8 PG (27.0-31.0) Mean Corpuscular Hemoglobin Concent 33.0 G/DL (32.0-36.0) Red Cell Distribution Width 13.0 % (11.6-14.8) Platelet Count 222 K/UL (150-450) Mean Platelet Volume 6.5 FL (6.5-10.1) Neutrophils (%) (Auto) 76.0 % (45.0-75.0) H Lymphocytes (%) (Auto) 14.1 % (20.0-45.0) L Monocytes (%) (Auto) 6.9 % (1.0-10.0) Eosinophils (%) (Auto) 2.4 % (0.0-3.0) Basophils (%) (Auto) 0.6 % (0.0-2.0) Sodium Level 144 MMOL/L (136-145) Potassium Level 3.5 MMOL/L (3.5-5.1) Chloride Level 109 MMOL/L (98-107) H Carbon Dioxide Level 18 MMOL/L (21-32) L Anion Gap 17 mmol/L (5-15) H Blood Urea Nitrogen 33 mg/dL (7-18) H Creatinine 2.1 MG/DL (0.55-1.30) H Estimated Glomerular Filtration Rate 22.9 mL/min (>60) Glucose Level 166 MG/DL (74-106) H Calcium Level 8.5 MG/DL (8.5-10.1) Total Bilirubin 0.6 MG/DL (0.2-1.0) Aspartate Amino Transferase (AST) 22 U/L (15-37) Alanine Aminotransferase (ALT) 31 U/L (12-78) Alkaline Phosphatase 79 U/L (46-116) Troponin I 0.000 ng/mL (0.000-0.056) Pro-B-Type Natriuretic Peptide 137 pg/mL (0-125) H Total Protein 7.8 G/DL (6.4-8.2) Albumin 3.6 G/DL (3.4-5.0) Globulin 4.2 g/dL Albumin/Globulin Ratio 0.9 (1.0-2.7) L Procedure: XRAY Chest 1v EXAM: XR Chest, 1 View CLINICAL HISTORY: CP TECHNIQUE: Frontal view of the chest. COMPARISON: Chest x-ray 05/07/20 FINDINGS: Lungs: Mild central vascular congestion. No consolidation. Pleural space: Query tiny right pleural effusion. No pneumothorax. Heart: Cardiomegaly. Mediastinum: Unremarkable. Bones/joints: Unremarkable. IMPRESSION: Mild central vascular congestion. Query tiny right pleural effusion. Consider mild CHF. 75-year-old female with significant past medical history here with chest pain. Patient had a high heart score due to her past medical history and concerning nature of her story. EKG unremarkable. CBC and CMP normal. Troponin negative. Patient received aspirin and Lasix in the emergency department. Chest x-ray revealed evidence of CHF with cardiomegaly and right-sided pleural effusion and pulmonary vascular congestion. Patient however had normal vital signs. Admitted to telemetry in stable condition. Last Vital Signs Date Time Temp Pulse Resp B/P (MAP) Pulse Ox O2 Delivery O2 Flow Rate FiO2 06/19/20 10:44 98.1 20 161/89 99 Room Air 06/19/20 10:44 78 Referrals: Bulmaro Correa MD (PCP) Steven Guzmán M.D. Jun 19, 2020 12:52
[2020-06-19] MEDS ORDERED: unknown meds (13:13)
[2020-06-19 16:00] VITALS: BP 153/86
[2020-06-19 20:00] VITALS: BP 159/91
[2020-06-19] MEDS ORDERED: traMADol 50mg tab ORAL PRN (20:45)
[2020-06-19] MEDS ORDERED: HydrALAZINE 25mg tab ORAL PRN (20:45)
[2020-06-19] MEDS: NovoLOG Insulin Flexpen SUBQ SCH (21:00)
[2020-06-19] MEDS: Lyrica 50mg cap ORAL SCH (22:52)
[2020-06-20] VITALS: BP 119/71
[2020-06-20] MEDS ORDERED: Albuterol/Ipratropium 3ml neb HHN SCH (01:00)
--- NOTE | 2020-06-20 01:45 | Consultation ---
DATE OF CONSULTATION: 06/19/2020 CARDIOLOGY CONSULT REFERRING PHYSICIAN: Bulmaro Correa MD REASON FOR CONSULTATION: Chest pain. HISTORY OF PRESENT ILLNESS: This is a 75-year-old female. She has multiple risk factors for premature coronary artery disease. She is on anti-platelet therapy with clopidogrel. She awoke this morning complaining of chest pressure and shortness of breath in the substernal region with no radiation. There were no precipitating events. She has been on her usual medications and did not have any unusual events last evening before going to bed. She was seen in the emergency room where her initial troponin level was negative. The patient has been hospitalized here in the past. She has had prior evaluations. There is no prior record of myocardial perfusion scan here. However, she has had a V/Q scan that was negative and an MRI of the chest revealing no aortic dissection or aneurysm. PAST MEDICAL HISTORY: Hypertension, hyperlipidemia, type 2 diabetes mellitus, history of gastritis, COPD, coronary atherosclerosis, prior cholecystectomy, prior hernia repair, and hypertriglyceridemia. SOCIAL HISTORY: Negative for smoking or alcohol use. FAMILY HISTORY: Noncontributory. REVIEW OF SYSTEMS: There is no recent COVID-19 exposure or symptoms. No history of fevers or chills. No nausea, vomiting, diarrhea, or change in bowel habits. No history of kidney disorder. No history of seizure or stroke. She is on oral therapy for diabetes and high lipids. She has been on antihypertensives. She has not had any recent abdominal pain. PHYSICAL EXAMINATION: VITAL SIGNS: Blood pressure 161/89, pulse 78, respirations 20, afebrile. HEENT: Conjunctivae pink. Oropharynx clear. NECK: Supple. No bruits. Jugular venous pressure normal. LUNGS: Clear. CARDIAC: Regular rhythm and rate. Normal S1, S2 with a fourth heart sound. ABDOMEN: Soft, nontender. No pulsatile masses. EXTREMITIES: Good pulses. No edema. LABORATORY DATA: EKG with sinus rhythm. No acute abnormalities. White count 9.6, hemoglobin 10.4. Sodium 144, potassium 3.5, bicarb 18, BUN 33, creatinine 2.1, albumin 3.6. Pro-natriuretic peptide 137. Chest x-ray, mild pulmonary venous congestion. IMPRESSION: 1. Possible acute coronary syndrome. 2. Acute on chronic renal failure. 3. Hyperlipidemia and triglyceridemia. 4. Anemia. 5. Hypertensive heart disease with labile blood pressure. 6. Metabolic acidosis. 7. Acute diastolic congestive heart failure with small pleural effusion. PLAN: 1. Cardiac monitoring. 2. Continue antiplatelet therapy. 3. Maintain anti-lipid drugs. 4. Cautious hydration. 5. Hold angiotensin receptor henrique. 6. Beta-blockade. 7. Titrate antihypertensives. 8. Echocardiogram. 9. Myocardial perfusion scan to follow. Pankaj Abreu M.D. DR: CLAYTON JOB#: [id number] CC:
[2020-06-20 02:04] VITALS: BP 119/71
[2020-06-20 04:00] VITALS: BP 120/65
[2020-06-20] MEDS ORDERED: metFORMIN 500mg tab ORAL SCH (06:30)
[2020-06-20 06:47] LABS: BASOPHILS % (AUTO) 0.9 % (0.0-2.0); EOSINOPHILS % (AUTO) 4.6 % (0.0-3.0); HEMATOCRIT 31.8 % (37.0-47.0); HEMOGLOBIN 10.3 G/DL (12.0-16.0); LYMPHOCYTES % (AUTO) 27.3 % (20.0-45.0); MEAN CORPUSCULAR VOLUME 93 FL (80-99); MONOCYTES % (AUTO) 7.3 % (1.0-10.0); NEUTROPHILS % (AUTO) 59.8 % (45.0-75.0); PLATELET COUNT 215 K/UL (150-450); RED BLOOD COUNT 3.42 M/UL (4.20-5.40); RED CELL DISTRIBUTION WIDTH 12.7 % (11.6-14.8); WHITE BLOOD COUNT 7.7 K/UL (4.8-10.8)
[2020-06-20] MEDS: NovoLOG Insulin Flexpen SUBQ SCH ×3 (06:47→16:37)
[2020-06-20 06:49] LABS: ALANINE AMINOTRANSFERASE 14 U/L (12-78); ALBUMIN 3.3 G/DL (3.4-5.0); ALBUMIN/GLOBULIN RATIO 0.8 (1.0-2.7); ALKALINE PHOSPHATASE 70 U/L (46-116); ANION GAP 15 mmol/L (5-15); ASPARTATE AMINO TRANSFERASE 14 U/L (15-37); BILIRUBIN,TOTAL 0.4 MG/DL (0.2-1.0); BLOOD UREA NITROGEN 31 mg/dL (7-18); CARBON DIOXIDE 23 MMOL/L (21-32); CHLORIDE 107 MMOL/L (98-107); CREATININE 1.9 MG/DL (0.55-1.30); POTASSIUM 3.7 MMOL/L (3.5-5.1); SODIUM 145 MMOL/L (136-145)
[2020-06-20] MEDS ORDERED: Albuterol/Ipratropium 3ml neb HHN PRN (07:15)
[2020-06-20 08:00] VITALS: BP 142/82
--- NOTE | 2020-06-20 08:15 | Pulmonology Progress Note ---
Subjective Allergies: Coded Allergies: No Known Allergies (Unverified , 01/17/16) Objective Last 24 Hour Vital Signs Date Time Temp Pulse Resp B/P (MAP) Pulse Ox O2 Delivery O2 Flow Rate FiO2 06/20/20 04:00 82 06/20/20 04:00 97.5 80 19 120/65 (83) 97 06/20/20 01:32 75 18 100 Room Air 21 06/20/20 01:30 80 18 100 Room Air 21 78 18 100 06/20/20 00:15 75 119/71 06/20/20 00:00 75 06/20/20 00:00 97.9 86 19 119/71 (87) 96 06/19/20 21:15 95 159/91 06/19/20 21:00 Room Air 06/19/20 20:00 97.7 95 20 159/91 (113) 98 06/19/20 20:00 92 06/19/20 16:00 78 06/19/20 16:00 97.5 80 20 153/86 (108) 97 06/19/20 14:15 Room Air 06/19/20 14:15 98.1 81 18 158/86 99 Room Air 06/19/20 10:44 98.1 20 161/89 99 Room Air 06/19/20 10:44 78 20 Room Air 06/19/20 10:14 98.1 78 20 161/89 (113) 99 Room Air Microbiology Date/Time Source Procedure Growth Status 06/19/20 13:00 Nasopharynx SARS-CoV-2 RdRp Gene Assay - Final Complete Laboratory Tests 06/19/20 10:20: White Blood Count 9.6, Red Blood Count 3.39L, Hemoglobin 10.4L, Hematocrit 31.7L , Mean Corpuscular Volume 93, Mean Corpuscular Hemoglobin 30.8, Mean Corpuscular Hemoglobin Concent 33.0, Red Cell Distribution Width 13.0, Platelet Count 222, Mean Platelet Volume 6.5, Neutrophils (%) (Auto) 76.0H, Lymphocytes ( %) (Auto) 14.1L, Monocytes (%) (Auto) 6.9, Eosinophils (%) (Auto) 2.4, Basophils (%) (Auto) 0.6, Sodium Level 144, Potassium Level 3.5, Chloride Level 109H, Carbon Dioxide Level 18L, Anion Gap 17H, Blood Urea Nitrogen 33H, Creatinine 2.1H, Estimat Glomerular Filtration Rate 22.9, Glucose Level 166H, Calcium Level 8.5, Total Bilirubin 0.6, Aspartate Amino Transf (AST/SGOT) 22, Alanine Aminotransferase (ALT/SGPT) 31, Alkaline Phosphatase 79, Troponin I 0.000, Pro-B-Type Natriuretic Peptide 137H, Total Protein 7.8, Albumin 3.6, Globulin 4.2, Albumin/Globulin Ratio 0.9L 06/19/20 22:32: POC Whole Blood Glucose 142H 06/20/20 05:58: White Blood Count 7.7, Red Blood Count 3.42L, Hemoglobin 10.3L, Hematocrit 31.8L , Mean Corpuscular Volume 93, Mean Corpuscular Hemoglobin 30.1, Mean Corpuscular Hemoglobin Concent 32.5, Red Cell Distribution Width 12.7, Platelet Count 215, Mean Platelet Volume 6.4L, Neutrophils (%) (Auto) 59.8, Lymphocytes ( %) (Auto) 27.3, Monocytes (%) (Auto) 7.3, Eosinophils (%) (Auto) 4.6H, Basophils (%) (Auto) 0.9, Sodium Level 145, Potassium Level 3.7, Chloride Level 107, Carbon Dioxide Level 23, Anion Gap 15, Blood Urea Nitrogen 31H, Creatinine 1.9H, Estimat Glomerular Filtration Rate 25.7, Glucose Level 152H, Calcium Level 8.0L, Total Bilirubin 0.4, Aspartate Amino Transf (AST/SGOT) 14L, Alanine Aminotransferase (ALT/SGPT) 14, Alkaline Phosphatase 70, Troponin I [Pending], Pro-B-Type Natriuretic Peptide [Pending], Total Protein 7.5, Albumin 3.3L, Globulin 4.2, Albumin/Globulin Ratio 0.8L, Magnesium Level [Pending] Current Medications Medications (Trade) Dose Ordered Sig/John Route PRN Reason Start Time Stop Time Status Last Admin Dose Admin Acetaminophen (Tylenol) 650 mg Q4H PRN ORAL Mild Pain (Pain Scale 1-3) 06/19/20 20:45 07/19/20 20:44 Albuterol/ Ipratropium (Albuterol/ Ipratropium) 3 ml Q6H PRN HHN Shortness of Breath 06/20/20 07:15 06/25/20 07:14 Amlodipine Besylate (Norvasc) 5 mg DAILY ORAL 06/19/20 21:15 07/19/20 21:14 06/19/20 21:15 Budesonide/ Formoterol Fumarate (Symbicort 160/ 4.5) 1 puff BID INH 06/20/20 09:00 09/18/20 08:59 Clopidogrel Bisulfate (Plavix) 75 mg DAILY ORAL 06/20/20 09:00 07/20/20 08:59 Dextrose (Dextrose 50%) 25 ml Q30M PRN IV Hypoglycemia 06/19/20 20:45 09/17/20 20:44 Dextrose (Dextrose 50%) 50 ml Q30M PRN IV Hypoglycemia 06/19/20 20:45 09/17/20 20:44 Gemfibrozil (Lopid) 600 mg TWICE A DAY ORAL 06/20/20 09:00 07/20/20 08:59 Hydralazine HCl (Apresoline) 25 mg Q6H PRN ORAL For High Blood Pressure 06/19/20 20:45 09/17/20 20:44 Insulin Aspart (NovoLOG) BEFORE MEALS AND HS SUBQ 06/19/20 21:00 09/17/20 20:59 06/20/20 06:47 Metoprolol Tartrate (Lopressor) 25 mg Q12HR ORAL 06/20/20 00:15 09/18/20 00:14 Ondansetron HCl (Zofran) 4 mg Q6H PRN IVP Nausea & Vomiting 06/19/20 20:45 07/19/20 20:44 Pantoprazole (Protonix) 40 mg DAILY ORAL 06/20/20 09:00 07/20/20 08:59 Pregabalin (Lyrica) 50 mg THREE TIMES A DAY ORAL 06/19/20 21:15 08/03/20 21:14 06/19/20 22:52 Tramadol HCl (Ultram) 50 mg Q6H PRN ORAL For Pain 06/19/20 20:45 06/26/20 20:44 Bulmaro Correa MD Jun 20, 2020 08:15
--- NOTE | 2020-06-20 08:15 | History & Physical ---
History and Physical History & Physicial 75-year-old female with multiple risk factors for premature coronary artery disease. She is on anti-platelet therapy with clopidogrel. + chest pressure and shortness of breath in the substernal region with no radiation on morning of admit. There were no precipitating events. She has been on her usual medications and did not have any unusual events last evening before going to bed. she has had a negative ribidium PET as outpatient. She has had a V/Q scan that was negative and an MRI of the chest revealing as well as a CT chest contrast for possible benign mediastinal mass PAST MEDICAL HISTORY: Hypertension, hyperlipidemia, type 2 diabetes mellitus, history of gastritis, COPD, coronary atherosclerosis, prior cholecystectomy, prior hernia repair, and hypertriglyceridemia. noncompliance SOCIAL HISTORY: Negative for smoking or alcohol use. FAMILY HISTORY: Noncontributory. REVIEW OF SYSTEMS: all 10 points reviewed PHYSICAL EXAMINATION: WDWN NAD clear breath sounds bilaterally without rhonchi or wheeze [id number] without MRG NABS nontender no HSM no CCE nonfocal Labs Test 06/19/20 10:20 06/19/20 22:32 06/20/20 05:58 White Blood Count 9.6 K/UL (4.8-10.8) 7.7 K/UL (4.8-10.8) Red Blood Count 3.39 M/UL (4.20-5.40) 3.42 M/UL (4.20-5.40) Hemoglobin 10.4 G/DL (12.0-16.0) 10.3 G/DL (12.0-16.0) Hematocrit 31.7 % (37.0-47.0) 31.8 % (37.0-47.0) Mean Corpuscular Volume 93 FL (80-99) 93 FL (80-99) Mean Corpuscular Hemoglobin 30.8 PG (27.0-31.0) 30.1 PG (27.0-31.0) Mean Corpuscular Hemoglobin Concent 33.0 G/DL (32.0-36.0) 32.5 G/DL (32.0-36.0) Red Cell Distribution Width 13.0 % (11.6-14.8) 12.7 % (11.6-14.8) Platelet Count 222 K/UL (150-450) 215 K/UL (150-450) Mean Platelet Volume 6.5 FL (6.5-10.1) 6.4 FL (6.5-10.1) Neutrophils (%) (Auto) 76.0 % (45.0-75.0) 59.8 % (45.0-75.0) Lymphocytes (%) (Auto) 14.1 % (20.0-45.0) 27.3 % (20.0-45.0) Monocytes (%) (Auto) 6.9 % (1.0-10.0) 7.3 % (1.0-10.0) Eosinophils (%) (Auto) 2.4 % (0.0-3.0) 4.6 % (0.0-3.0) Basophils (%) (Auto) 0.6 % (0.0-2.0) 0.9 % (0.0-2.0) Sodium Level 144 MMOL/L (136-145) 145 MMOL/L (136-145) Potassium Level 3.5 MMOL/L (3.5-5.1) 3.7 MMOL/L (3.5-5.1) Chloride Level 109 MMOL/L (98-107) 107 MMOL/L (98-107) Carbon Dioxide Level 18 MMOL/L (21-32) 23 MMOL/L (21-32) Anion Gap 17 mmol/L (5-15) 15 mmol/L (5-15) Blood Urea Nitrogen 33 mg/dL (7-18) 31 mg/dL (7-18) Creatinine 2.1 MG/DL (0.55-1.30) 1.9 MG/DL (0.55-1.30) Estimat Glomerular Filtration Rate 22.9 mL/min (>60) 25.7 mL/min (>60) Glucose Level 166 MG/DL (74-106) 152 MG/DL (74-106) Calcium Level 8.5 MG/DL (8.5-10.1) 8.0 MG/DL (8.5-10.1) Total Bilirubin 0.6 MG/DL (0.2-1.0) 0.4 MG/DL (0.2-1.0) Aspartate Amino Transf (AST/SGOT) 22 U/L (15-37) 14 U/L (15-37) Alanine Aminotransferase (ALT/SGPT) 31 U/L (12-78) 14 U/L (12-78) Alkaline Phosphatase 79 U/L (46-116) 70 U/L (46-116) Troponin I 0.000 ng/mL (0.000-0.056) Pro-B-Type Natriuretic Peptide 137 pg/mL (0-125) Total Protein 7.8 G/DL (6.4-8.2) 7.5 G/DL (6.4-8.2) Albumin 3.6 G/DL (3.4-5.0) 3.3 G/DL (3.4-5.0) Globulin 4.2 g/dL 4.2 g/dL Albumin/Globulin Ratio 0.9 (1.0-2.7) 0.8 (1.0-2.7) POC Whole Blood Glucose 142 MG/DL (74-106) Chest x-ray, mild pulmonary venous congestion. IMPRESSION: 1. Possible acute coronary syndrome. 2. Asthma 3. Hyperlipidemia and triglyceridemia. 4. Shortness of breath 5. Hypertensive heart disease 6. Metabolic acidosis. 7. Acute diastolic congestive heart failure with small pleural effusion. PLAN diurese resume home meds oxygen monitor labs avoid excessive diuresis will provide outpatient scans d/w family impression, plan, and exam edited and reviewed in detail care discussed with Bulmaro Dennis MD Jun 20, 2020 08:15
[2020-06-20] MEDS: Lyrica 50mg cap ORAL SCH ×3 (09:47→18:00)
[2020-06-20] MEDS ORDERED: Lexiscan 0.4mg/5ml syringe IV PRN (11:45)
[2020-06-20 12:00] VITALS: BP 121/80
[2020-06-20 12:51] LABS: CHOLESTEROL 346 MG/DL (< 200); HDL CHOLESTEROL 41 MG/DL (40-60); TRIGLYCERIDES 779 MG/DL (30-150)
[2020-06-20 16:00] VITALS: BP 122/71
--- NOTE | 2020-06-20 22:35 | Cardiology Progress Note ---
Subjective DATE OF SERVICE: Jun 20, 2020 No recurrent chest pain. Troponin levels negative Labs notable for Mg 1.4 MONITOR: sinus with rare PAC's Objective Last 24 Hour Vital Signs Date Time Temp Pulse Resp B/P (MAP) Pulse Ox O2 Delivery O2 Flow Rate FiO2 06/20/20 16:00 97.9 88 20 122/71 (88) 97 06/20/20 12:00 95 06/20/20 12:00 97.9 87 20 121/80 (94) 97 06/20/20 09:48 95 142/82 06/20/20 09:47 95 142/82 06/20/20 08:35 Room Air 06/20/20 08:00 81 06/20/20 08:00 97.7 95 20 142/82 (102) 97 06/20/20 04:00 82 06/20/20 04:00 97.5 80 19 120/65 (83) 97 06/20/20 01:32 75 18 100 Room Air 21 06/20/20 01:30 80 18 100 Room Air 21 78 18 100 06/20/20 00:15 75 119/71 06/20/20 00:00 75 06/20/20 00:00 97.9 86 19 119/71 (87) 96 ROS: no changefrom my assessment of 06/19/20 RHYTHM: NSR LUNGS: lungs clear bilaterally CARDIAC: normal rate, regular rhythm, normal S1 and S2 ABDOMEN: normal bowel sounds, non tender, soft EXTREMITIES: normal range of motion, non-tender, No edema Laboratory Tests Test 06/19/20 22:32 06/20/20 05:58 06/20/20 11:56 POC Whole Blood Glucose 142 MG/DL (74-106) H 171 MG/DL (74-106) H White Blood Count 7.7 K/UL (4.8-10.8) Red Blood Count 3.42 M/UL (4.20-5.40) L Hemoglobin 10.3 G/DL (12.0-16.0) L Hematocrit 31.8 % (37.0-47.0) L Mean Corpuscular Volume 93 FL (80-99) Mean Corpuscular Hemoglobin 30.1 PG (27.0-31.0) Mean Corpuscular Hemoglobin Concent 32.5 G/DL (32.0-36.0) Red Cell Distribution Width 12.7 % (11.6-14.8) Platelet Count 215 K/UL (150-450) Mean Platelet Volume 6.4 FL (6.5-10.1) L Neutrophils (%) (Auto) 59.8 % (45.0-75.0) Lymphocytes (%) (Auto) 27.3 % (20.0-45.0) Monocytes (%) (Auto) 7.3 % (1.0-10.0) Eosinophils (%) (Auto) 4.6 % (0.0-3.0) H Basophils (%) (Auto) 0.9 % (0.0-2.0) Sodium Level 145 MMOL/L (136-145) Potassium Level 3.7 MMOL/L (3.5-5.1) Chloride Level 107 MMOL/L (98-107) Carbon Dioxide Level 23 MMOL/L (21-32) Anion Gap 15 mmol/L (5-15) Blood Urea Nitrogen 31 mg/dL (7-18) H Creatinine 1.9 MG/DL (0.55-1.30) H Estimat Glomerular Filtration Rate 25.7 mL/min (>60) Glucose Level 152 MG/DL (74-106) H Calcium Level 8.0 MG/DL (8.5-10.1) L Magnesium Level 1.4 MG/DL (1.8-2.4) L Total Bilirubin 0.4 MG/DL (0.2-1.0) Aspartate Amino Transf (AST/SGOT) 14 U/L (15-37) L Alanine Aminotransferase (ALT/SGPT) 14 U/L (12-78) Alkaline Phosphatase 70 U/L (46-116) Troponin I 0.000 ng/mL (0.000-0.056) Pro-B-Type Natriuretic Peptide 175 pg/mL (0-125) H Total Protein 7.5 G/DL (6.4-8.2) Albumin 3.3 G/DL (3.4-5.0) L Globulin 4.2 g/dL Albumin/Globulin Ratio 0.8 (1.0-2.7) L Triglycerides Level 779 MG/DL (30-150) H Cholesterol Level 346 MG/DL (< 200) H LDL Cholesterol 113 mg/dL (<100) H HDL Cholesterol 41 MG/DL (40-60) Cholesterol/HDL Ratio 8.4 (3.3-4.4) H Microbiology Date/Time Source Procedure Growth Status 06/19/20 13:00 Nasopharynx SARS-CoV-2 RdRp Gene Assay - Final Complete Assessment/Plan Assessment/Plan Acute coronary syndrome Hypertension/HHD Hypomagnesemia Hypertriglyceridemia IRDM Continue antiplt rx Titrate antiHTN and antianginal regimen IV MG++ Add'l K+ Optimize lipid parameters LexiScan stress to assess coronary flow reserve Pankaj Abreu MD Jun 20, 2020 22:35
--- NOTE | 2020-06-21 11:16 | Discharge Summary ---
Discharge Summary Discharge Summary _ DATE OF ADMISSION: 06/19/2020 DATE OF DISCHARGE: 06/20/2020 DISCHARGED BY: Dr. Morales REASON FOR ADMISSION: 75 years old female with past medical history of diabetes mellitus, hypertension , COPD, presented to emergency department complaining of chest pain. Chest pain woke her up in the morning . Patient also reported associated shortness of breath. Chest pain described as pressure-like, located in the substernal region, no radiation. She denied headache. She denied fever or chills. No vision changes. No palpitations. No nausea ,vomiting, or diarrhea. No dysuria. Upon evaluation vital signs revealed slightly elevated blood pressure 161/89 , otherwise stable. Pulse oximetry was stable on room air. Laboratory work-up revealed no leukocytosis ,hemoglobin 10.4 ,hematocrit 31.7. Troponin negative. EKG revealed sinus rhythm , no acute ischemic changes. Pro BNP 137. Stable electrolytes. BUN 33, creatinine 2.1. Glucose 166. Chest x-ray revealed mild central vascular congestion , tiny right pleural effusion. In emergency department patient received aspirin ,Lasix ,potassium ,nebulizing treatment with bronchodilator via N and admitted for further management. CONSULTANTS: skiing instructor [facility] COURSE: Patient admitted to telemetry floor. Home medication resumed . System Developer Associate Manager followed. Serial troponin were negative. EKG revealed no acute ischemic changes. Patient was ruled out for acute myocardial infarction. Antiplatelet therapy and beta-blockade continued. Antihypertensive and antianginal regimen titrated. Additional potassium and magnesium were replaced. Echocardiogram demonstrated preserved ejection fraction of 55%. No evidence of wall motion abnormality. System Developer Associate Manager recommended myocardial perfusion scan test , which can be done as outpatient. Supplemental oxygen provided and titrated to keep oximetry above 92% . Pulse oximetry remained stable on room air. Symbicort inhaler provided . Nebulizing treatment was on board as needed. No evidence of asthma exacerbation. Blood sugar was managed with sliding scale of insulin. GI prophylaxis provided. Creatinine trended down to 1.9 the next day. Lipid panel revealed triglycerides 779, cholesterol 346 ,LDL 114. Patient started on Lopid. Given significantly elevated triglycerides , required initial treatment for hypertriglyceridemia. Patient was educated on low-fat low-cholesterol diet and to repeat lipid panel as outpatient. Patient clinically stabilized , chest pain resolved. Patient was ready for discharge home. Due to rapid and unexpected improvement in patient condition, patient was discharged in 1 day. FINAL DIAGNOSES: Possible acute coronary syndrome Asthma Triglyceridemia Hyperlipidemia Hypertensive heart disease Acute diastolic congestive heart failure with small pleural effusion Acute on chronic renal failure Diabetes mellitus Electrolyte imbalance DISCHARGE MEDICATIONS: See Medication Reconciliation list. DISCHARGE INSTRUCTIONS: Patient was discharged home. Follow-up with a primary care provider in 1 week. Patient need outpatient stress test as recommended by skiing instructor. Encourage compliance with medications and diabetic , low fat, low cholesterol, low fat diet. I have been assigned to dictate discharge summary for this account. I was not involved in the patient's management. Laurence Call NP Jun 21, 2020 11:16
== END 2020-06-20 18:17 | disposition home or self-care (01) | DRG 291 ==
LOC: EMR 11:48 → 2E 12:11 → EDBEDREQ 12:38
DX: I13.0 Hypertensive heart and chronic kidney disease with heart failure and stage 1 through stage 4 chronic kidney disease, or unspecified chronic kidney disease (principal); I50.31 Acute diastolic (congestive) heart failure; N17.9 Acute kidney failure, unspecified; I24.9 Acute ischemic heart disease, unspecified; E87.2 Acidosis; E11.22 Type 2 diabetes mellitus with diabetic chronic kidney disease; N18.9 Chronic kidney disease, unspecified; E78.5 Hyperlipidemia, unspecified; J44.9 Chronic obstructive pulmonary disease, unspecified; E83.42 Hypomagnesemia; E78.1 Pure hyperglyceridemia
CPT/HCPCS: 36415; 71045; 80053; 80061; 82962; 83735; 83880; 84484; 85025; 93005; 93306; 94640; 94664; 96374; 99285; J1815; J7620; J8499; U0002

== ENCOUNTER 2020-09-22 18:41 | Inpatient (IN) | payer MEDICARE ==
[~2020-09-22] VITALS: Ht 154.9 cm; Wt 70.3 kg
[~2020-09-22 18:41] MED LIST changes: +unknown meds
[2020-09-22 18:56] VITALS: BP 202/110
[2020-09-22] MEDS ORDERED: Nitroglycerin Patch 0.1mg/hr TDERMAL SCH (19:15)
--- NOTE | 2020-09-22 19:23 | Diagnostic Imaging Report ---
EXAM: XR Chest, 1 View CLINICAL HISTORY: PAIN TECHNIQUE: Frontal view of the chest. COMPARISON: 06/19/2020 FINDINGS: Lungs: Low lung volumes with bronchovascular crowding. No consolidation, pleural effusion, or pneumothorax. Pleural space: Possible tiny right pleural effusion. Heart: Prominent cardiomediastinal silhouette could represent some degree of chamber enlargement, if there is further concern, recommend echocardiogram. Mediastinum: See above. Bones/joints: No acute abnormality IMPRESSION: 1. Possible tiny right pleural effusion. 2. Low lung volumes with bronchovascular crowding. 3. Otherwise no acute cardiopulmonary disease. 4. Prominent cardiomediastinal silhouette could represent some degree of chamber enlargement, if there is further concern, recommend echocardiogram. 5. If there is continued concern, consider frontal and lateral chest radiographs or CT.
--- NOTE | 2020-09-22 19:24 | Emergency Room Report ---
History of Present Illness General Chief Complaint: Chest Pain Source: Patient Present Illness HPI 75-year-old female with past medical history of diastolic heart failure, dyslipidemia, hypertension, diabetes presents with complaint of substernal pressure-like chest pain that began at 6 PM with radiation to the left shoulder. Is also associated with shortness of breath. Patient states that she has felt like this before when she had a previous heart attack. She denies any recent cardiac angiogram. She admits to nausea, dyspnea on exertion and shortness of breath when laying flat. The patient's symptoms were gradual onset, severity was moderate, duration since 1 day. Quality: Progressively short of breath Past medical history: Diastolic heart failure, dyslipidemia, hypertension, diabetes Past surgical history: Denies Smoking: Denies Alcohol use: Denies Drug use: Denies Review of systems: CONST: No fevers or chills, No night sweats PULMONARY: No productive cough, ++ shortness of breath CARDIAC: No chest pain, No palpitations GI: No vomiting, No diarrhea , No melena_or_BRBPR : No dysuria, No hematuria, No discharge NEURO: No new_focal_weakness_or_numbness, No confusion, No vision changes 14 point Review of Systems is otherwise negative except per HPI Physical Exam: GENERAL: Awake_alert_ nontoxic, no acute distress Spo2 98% on RA -normal EYES: Extraocular muscles are intact. Conjunctivae clear. Lids without swelling ENT: External nose and ear normal_in_appearance. Oropharynx clear. Head_atraumatic, Moist_oral_mucosa NECK: No JVD. No meningismus. No thyromegaly. Supple. Trachea midline RESP: Normal respiratory effort. Symmetric rise. No stridor. Clear_to_auscultation_No_rales_No_wheezes CARDIAC: Regular rate and regular rhytm. No_significant pedal edema. ABDOMEN: Soft. Nondistended. Nontender_No_rebound_or_guarding. MSK: Normal muscle tone, without rigidity. Extremities without asymmetric deformity or swelling. SKIN: Warm and dry. No visible cyanosis or pallor NEUROLOGIC: Alert, oriented x3. Motor_and_sensation_grossly_intact. No truncal ataxia. Gait_normal Psych: Normal mood and affect, normal judgment and insight - COORDINATION OF CARE Case was discussed with: Patient , Patient's Physician Any labs and imaging that were ordered were interpreted as part of the medical decision making: Medical Decision Making/Plan: Differential includes CHF, pulmonary edema, pulmonary embolism, pneumonia, pleural effusions, pneumothorax, among others. Patient presents with dyspnea on exertion and orthopnea. Chest x-ray shows cardiomegaly with R pleural effusion. EKG is nonischemic. BNP was elevated greater than 1000. Troponin was negative x1. Patient has chest pain likely due to demand ischemia from CHF exacerbation. Patient received ER diuresis, Vasotec, nitro, morphine, and aspirin with relief of symptoms. Symptoms are not likely to be due to pulmonary embolism, the patient has no significant PE risk factors and has a more likely alternate cause of their symptoms, given their chest xray findings, lung exam and presentation so workup was deferred and not pursued. The patient appears to be in decompensated CHF in exacerbation and not a suitable candidate for outpatient treatment so will be admitted for inpatient diuresis and further evaluation and treatment. I spoke with Dr. Correa, and reviewed the patients presentation, workup, results, and treatment. They will admit the patient for further care and evaluation, and assume care of the patient at this time. Allergies: Coded Allergies: No Known Allergies (Unverified , 01/17/16) COVID-19 Screening Contact w/high risk pt: No Recent Travel to affected area: No Experienced COVID-19 symptoms?: No COVID-19 Testing performed GROUNDS MANAGER: No Patient History Now: No Nursing Documentation-PM Hx Hypertension: Yes Hx COPD: Yes Hx Diabetes: Yes Hx Cancer: No Hx Gastrointestinal Problems: Yes Hx Neurological Problems: No Physical Exam Vital Signs Date Time Temp Pulse Resp B/P (MAP) Pulse Ox O2 Delivery O2 Flow Rate FiO2 09/22/20 18:49 98.2 91 22 202/110 (140) 97 Room Air Sp02 EP Interpretation: reviewed, normal Medical Decision Making Diagnostic Impression: Primary Impression: Chest pain Additional Impressions: Hypertension CKD (chronic kidney disease) Diabetes HLD (hyperlipidemia) Hx of myocardial infarction Anemia CHF exacerbation Pleural effusion on right EKG Diagnostic Results Troponin ordered: Yes When was troponin ordered?: Sep 22, 2020 EKG Time: 19:01 EP Interpretation: NL Rate: normal Rhythm: NSR ST Segments: no acute changes ASA given to the pt in ED: Yes PA Scribe Text 12-lead EKG (interpreted by me) Time: 1900 Indication: Rhythm analysis Tracing visualized and Interpreted by me. Rhythm: Normal sinus rhythm Rate: 99 bpm QTc: 47 Q waves inferior leads. Normal sinus rhythm. Morphology: No_significant_ST_elevations_or_depressions, No STEMI Impression: Low voltage. No STEMI Rhythm Strip Diag. Results Rhythm Strip Time: 19:57 EP Interpretation: yes Rate: 99 Rhythm: NSR, no PVC's, no ectopy Chest X-Ray Diagnostic Results Chest X-Ray Diagnostic Results : FERN Scribe Text Chest X-Ray: Views: [ 1 ] view(s) Indication: Chest pain Findings:. Possible right pleural effusion versus atelectasis. No pneumonia. cardiomegaly Impression: Possible right pleural effusion versus atelectasis. No pneumonia. cardiomegaly The X-ray(s) were independently viewed and interpreted contemporaneously Electronically signed by Smitha horton DO Reevaluation Time: 19:58 Last Vital Signs Date Time Temp Pulse Resp B/P (MAP) Pulse Ox O2 Delivery O2 Flow Rate FiO2 09/22/20 18:56 91 22 Room Air 09/22/20 18:56 98.2 202/110 97 Status: improved Disposition: ADMITTED INPATIENT Admit Decision Time: 19:58 Condition: Stable Referrals: Bulmaro Correa MD (PCP) Smitha Pascual D.O. Sep 22, 2020 19:24
[2020-09-22] MEDS ORDERED: Morphine Sulfate 2mg/ml Inj(IV/IM USE ONLY) IVP ONE (19:30)
[2020-09-22] MEDS ORDERED: Nitroglycerin 2% oint pkt TOPIC ONE (19:30)
[2020-09-22 19:34] LABS: EOSINOPHILS % (AUTO) 1.7 % (0.0-3.0); HEMATOCRIT 32.6 % (37.0-47.0); HEMOGLOBIN 10.8 G/DL (12.0-16.0); LYMPHOCYTES % (AUTO) 16.2 % (20.0-45.0); MEAN CORPUSCULAR VOLUME 95 FL (80-99); MONOCYTES % (AUTO) 6.1 % (1.0-10.0); PLATELET COUNT 254 K/UL (150-450); RED BLOOD COUNT 3.45 M/UL (4.20-5.40); RED CELL DISTRIBUTION WIDTH 13.4 % (11.6-14.8); WHITE BLOOD COUNT 8.6 K/UL (4.8-10.8)
[2020-09-22 19:47] LABS: CALCIUM 8.1 MG/DL (8.5-10.1); CREATININE 1.4 MG/DL (0.55-1.30); POTASSIUM 3.6 MMOL/L (3.5-5.1)
[2020-09-22 19:52] LABS: ALBUMIN 3.7 G/DL (3.4-5.0); ALBUMIN/GLOBULIN RATIO 0.8 (1.0-2.7); BILIRUBIN,TOTAL 0.2 MG/DL (0.2-1.0)
[2020-09-22] MEDS ORDERED: Enalaprilat 2.5mg/2ml Inj IV ONE (20:45)
[2020-09-22 21:40] VITALS: BP 155/63
[2020-09-22 23:30] VITALS: BP 158/68
[2020-09-23] VITALS (7 sets, daily range): BP systolic 137–157; BP diastolic 70–92
--- NOTE | 2020-09-23 09:32 | History & Physical ---
History and Physical History & Physicial 75-year-old female with multiple risk factors for premature coronary artery disease. She is on anti-platelet therapy with clopidogrel. + shortness of breath and elevated BNP and abnormal CXR. There were no precipitating events. She has been on her usual medications and did not have any unusual events last evening before going to bed. she has had a negative ribidium PET as outpatient. She has had a V/Q scan that was negative and an MRI of the chest revealing as well as a CT chest contrast for possible benign mediastinal mass and did undergo biopsy with benign results PAST MEDICAL HISTORY: Hypertension, hyperlipidemia, type 2 diabetes mellitus, history of gastritis, COPD, coronary atherosclerosis, prior cholecystectomy, prior hernia repair, and hypertriglyceridemia. noncompliance, benign lung mass SOCIAL HISTORY: Negative for smoking or alcohol use. FAMILY HISTORY: Noncontributory. REVIEW OF SYSTEMS: all 10 points reviewed PHYSICAL EXAMINATION: WDWN NAD clear breath sounds bilaterally with some basilar crackles [id number] without MRG NABS nontender no HSM no CC mild edema nonfocal Laboratory Tests 09/22/20 19:10: White Blood Count 8.6, Red Blood Count 3.45L, Hemoglobin 10.8L, Hematocrit 32.6L , Mean Corpuscular Volume 95, Mean Corpuscular Hemoglobin 31.3H, Mean Corpuscular Hemoglobin Concent 33.1, Red Cell Distribution Width 13.4, Platelet Count 254, Mean Platelet Volume 6.8, Neutrophils (%) (Auto) 75.0, Lymphocytes (%) (Auto) 16.2L, Monocytes (%) (Auto) 6.1, Eosinophils (%) (Auto) 1.7, Basophils (%) (Auto) 1.0, Sodium Level 141, Potassium Level 3.6, Chloride Level 103, Carbon Dioxide Level 24, Anion Gap 15, Blood Urea Nitrogen 16, Creatinine 1.4H, Estimat Glomerular Filtration Rate 36.7, Glucose Level 144H, Calcium Level 8.1L, Total Bilirubin 0.2, Aspartate Amino Transf (AST/SGOT) 22, Alanine Aminotransferase (ALT/SGPT) 22, Alkaline Phosphatase 108, Troponin I 0.000, Pro-B-Type Natriuretic Peptide 1156H, Total Protein 8.1, Albumin 3.7, Globulin 4.4, Albumin/Globulin Ratio 0.8L IMPRESSION: 1. Pulmonary edema 2. Asthma 3. Hyperlipidemia and triglyceridemia. 4. Shortness of breath 5. Hypertensive heart disease 6. Metabolic acidosis. 7. Acute diastolic congestive heart failure with small pleural effusion. PLAN diurese resume home meds oxygen monitor labs avoid excessive diuresis and hope to dc in am d/w family impression, plan, and exam edited and reviewed in detail care discussed with Bulmaro Dennis MD Sep 23, 2020 09:32
[2020-09-23] MEDS ORDERED: traMADol 50mg tab ORAL PRN (10:45)
[2020-09-23] MEDS ORDERED: Albuterol 90mcg Inhaler 8gm INH SCH (10:45)
[2020-09-23] MEDS: Lyrica 50mg cap ORAL SCH ×2 (12:33→17:53)
[2020-09-23] MEDS: NovoLOG Insulin Flexpen SUBQ SCH ×3 (12:35→20:19)
[2020-09-23] MEDS: Albuterol ud Inhalation HHN SCH ×2 (13:00→19:47)
[2020-09-23] MEDS ORDERED: Heparin 5000 units/ml inj SUBQ SCH (21:00)
[2020-09-24] VITALS: BP 155/91
[2020-09-24] MEDS: Albuterol ud Inhalation HHN SCH ×3 (01:34→13:38)
[2020-09-24 04:00] VITALS: BP 142/72
[2020-09-24 06:22] LABS: BASOPHILS % (AUTO) 0.6 % (0.0-2.0); EOSINOPHILS % (AUTO) 3.1 % (0.0-3.0); HEMATOCRIT 30.8 % (37.0-47.0); HEMOGLOBIN 10.4 G/DL (12.0-16.0); LYMPHOCYTES % (AUTO) 23.8 % (20.0-45.0); MEAN CORPUSCULAR VOLUME 91 FL (80-99); MONOCYTES % (AUTO) 8.8 % (1.0-10.0); NEUTROPHILS % (AUTO) 63.6 % (45.0-75.0); PLATELET COUNT 223 K/UL (150-450); RED BLOOD COUNT 3.38 M/UL (4.20-5.40); RED CELL DISTRIBUTION WIDTH 15.2 % (11.6-14.8); WHITE BLOOD COUNT 7.6 K/UL (4.8-10.8)
[2020-09-24] MEDS: NovoLOG Insulin Flexpen SUBQ SCH ×3 (06:32→16:46)
[2020-09-24 06:53] LABS: CALCIUM 7.7 MG/DL (8.5-10.1); CREATININE 1.3 MG/DL (0.55-1.30); POTASSIUM 3.6 MMOL/L (3.5-5.1)
[2020-09-24 08:12] VITALS: BP 142/80
[2020-09-24] MEDS: Lyrica 50mg cap ORAL SCH ×2 (08:14→12:07)
--- NOTE | 2020-09-24 11:08 | Diagnostic Imaging Report ---
EXAM: XR Chest, 1 View CLINICAL HISTORY: CP TECHNIQUE: Frontal view of the chest. COMPARISON: Chest radiograph on 09/22/2020 FINDINGS: Hardware: None. Lungs/pleura: Decreased right basilar opacity. No new focal consolidation. No pleural effusion or pneumothorax. Heart/mediastinum: Stable enlargement of the cardiac silhouette. Soft tissues: Unremarkable. Bones: No acute fracture. Degenerative changes of the acromio clavicular joints and spine. Upper abdomen: Normal. IMPRESSION: Decreased right basilar opacity. No new focal consolidation.
--- NOTE | 2020-09-24 11:32 | Pulmonology Progress Note ---
Subjective ROS Limited/Unobtainable: No Allergies: Coded Allergies: No Known Allergies (Unverified , 01/17/16) Objective Last 24 Hour Vital Signs Date Time Temp Pulse Resp B/P (MAP) Pulse Ox O2 Delivery O2 Flow Rate FiO2 09/24/20 08:35 82 16 94 Room Air 21 09/24/20 08:32 85 18 96 Room Air 21 82 16 94 09/24/20 08:14 84 142/80 09/24/20 08:12 98.1 84 18 142/80 (100) 95 09/24/20 08:00 Room Air 09/24/20 08:00 85 09/24/20 04:00 97 09/24/20 04:00 98.2 78 16 142/72 (95) 95 09/24/20 01:34 Room Air 21 09/24/20 00:00 98.4 80 18 155/91 (112) 96 09/24/20 00:00 86 09/23/20 21:00 Room Air 09/23/20 20:24 87 20 95 Room Air 09/23/20 20:00 98.4 87 18 149/92 (111) 95 09/23/20 20:00 80 09/23/20 19:48 Room Air 09/23/20 16:00 98.6 87 18 157/86 (109) 96 09/23/20 16:00 78 09/23/20 12:00 74 09/23/20 12:00 98.0 94 16 153/92 (112) 95 Intake and Output 09/23/20 09/24/20 19:00 07:00 Intake Total 250 ml 100 ml Balance 250 ml 100 ml Intake Oral 250 ml 100 ml # Voids 2 1 Laboratory Tests 09/23/20 11:54: POC Whole Blood Glucose 172H 09/23/20 16:45: POC Whole Blood Glucose 131H 09/23/20 20:11: POC Whole Blood Glucose 140H 09/24/20 05:18: POC Whole Blood Glucose 149H 09/24/20 05:25: White Blood Count 7.6, Red Blood Count 3.38L, Hemoglobin 10.4L, Hematocrit 30.8L , Mean Corpuscular Volume 91, Mean Corpuscular Hemoglobin 30.7, Mean Corpuscular Hemoglobin Concent 33.7, Red Cell Distribution Width 15.2H, Platelet Count 223, Mean Platelet Volume 7.4, Neutrophils (%) (Auto) 63.6, Lymphocytes (%) (Auto) 23.8, Monocytes (%) (Auto) 8.8, Eosinophils (%) (Auto) 3.1H, Basophils (%) (Auto) 0.6, Sodium Level 145, Potassium Level 3.6, Chloride Level 107, Carbon Dioxide Level 30, Anion Gap 8, Blood Urea Nitrogen 14, Creatinine 1.3, Estimat Glomerular Filtration Rate 39.9, Glucose Level 154H, Calcium Level 7.7L, Pro-B-Type Natriuretic Peptide 374H Current Medications Medications (Trade) Dose Ordered Sig/John Route PRN Reason Start Time Stop Time Status Last Admin Dose Admin Acetaminophen (Tylenol) 650 mg Q4H PRN ORAL Mild Pain (Pain Scale 1-3) 09/23/20 09:15 10/23/20 09:14 Al Hydroxide/Mg Hydroxide (Mylanta) 30 ml Q4H PRN ORAL Nausea & Vomiting 09/23/20 09:15 10/23/20 09:14 Albuterol Sulfate (Proventil) 2.5 mg Q6HRT HHN 09/23/20 13:00 09/28/20 12:59 09/24/20 08:32 Amlodipine Besylate (Norvasc) 5 mg DAILY ORAL 09/24/20 09:00 10/24/20 08:59 09/24/20 08:14 Clopidogrel Bisulfate (Plavix) 75 mg DAILY ORAL 09/24/20 09:00 10/24/20 08:59 09/24/20 08:14 Dextrose (Dextrose 50%) 25 ml Q30M PRN IV Hypoglycemia 09/23/20 09:15 12/22/20 09:14 Dextrose (Dextrose 50%) 50 ml Q30M PRN IV Hypoglycemia 09/23/20 09:15 12/22/20 09:14 Furosemide (Lasix) 40 mg DAILY IV 09/24/20 09:00 10/24/20 08:59 09/24/20 09:13 Gemfibrozil (Lopid) 600 mg TWICE A DAY ORAL 09/23/20 18:00 10/23/20 17:59 09/24/20 08:14 Insulin Aspart (NovoLOG) BEFORE MEALS AND HS SUBQ 09/23/20 11:30 12/22/20 11:29 09/24/20 06:32 Pantoprazole (Protonix) 40 mg DAILY ORAL 09/23/20 09:15 10/23/20 09:14 09/24/20 08:14 Pregabalin (Lyrica) 50 mg THREE TIMES A DAY ORAL 09/23/20 13:00 11/07/20 12:59 09/24/20 08:14 Tramadol HCl (Ultram) 50 mg BIDPRN PRN ORAL For Pain 09/23/20 10:45 09/30/20 10:44 09/24/20 07:04 Assessment/Plan Assessment/Plan History & Physicial 75-year-old female with multiple risk factors for premature coronary artery disease. She is on anti-platelet therapy with clopidogrel. + shortness of breath and elevated BNP and abnormal CXR. She has had a negative ribidium PET as outpatient. She has had a V/Q scan that was negative and an MRI of the chest revealing as well as a CT chest contrast for possible benign mediastinal mass and did undergo biopsy with benign results Less SOB PAST MEDICAL HISTORY: Hypertension, hyperlipidemia, type 2 diabetes mellitus, history of gastritis, COPD, coronary atherosclerosis, prior cholecystectomy, prior hernia repair, and hypertriglyceridemia. noncompliance, benign lung mass PHYSICAL EXAMINATION: Vital signs noted WDWN NAD clear breath sounds bilaterally with some basilar crackles [id number] without MRG NABS nontender no HSM no CC mild edema nonfocal Laboratory Tests noted IMPRESSION: 1. Pulmonary edema 2. Asthma 3. Hyperlipidemia and triglyceridemia. 4. Shortness of breath 5. Hypertensive heart disease 6. Metabolic acidosis. 7. Acute diastolic congestive heart failure with small pleural effusion. PLAN continue diuretics resume home meds DC home impression, plan, and exam edited and reviewed in detail care discussed with Pankaj Irving MD Sep 24, 2020 11:32
[2020-09-24 11:52] VITALS: BP 150/84
[2020-09-24] MEDS ORDERED: NS 275ml ONE (12:28)
[2020-09-24] MEDS ORDERED: FUROSEMIDE40 MG ORAL (15:23)
[2020-09-24] MEDS ORDERED: AMLODIPINE BESYL5 MG ORAL (15:23)
[2020-09-24] MEDS ORDERED: PROTONIX40 MG ORAL (15:24)
[2020-09-24] MEDS ORDERED: PLAVIX75 MG ORAL (15:25)
[2020-09-24] MEDS ORDERED: POTASSIUM CHLO10 ME2 PO (15:26)
[2020-09-24 16:00] VITALS: BP 132/77
--- NOTE | 2020-09-26 09:28 | Discharge Summary ---
Discharge Summary Discharge Summary _ DATE OF ADMISSION: 09/22/2020 DATE OF DISCHARGE: 09/24/2020 DISCHARGED BY: Dr. Correa REASON FOR ADMISSION: 75 years old female with past medical history of diastolic congestive heart failure, hypertension, asthma, dyslipidemia, diabetes mellitus, presented to emergency department complaining of substernal, pressure-like chest pain with radiation to the left shoulder. Pain started in the evening and was associated with shortness of breath. Patient with multiple risk factors for coronary artery disease. Patient was on antiplatelet therapy with Plavix . patient presented with shortness of breath elevated BNP and abnormal chest x-ray. She had a prior VQ scan , which was negative. MRI of the chest as outpatient as well as a CT of the chest with contrast done for possible benign mediastinal mass , and subsequent biopsy revealed benign results. Vital signs revealed significantly elevated blood pressure 202/110 , pulse oximetry was stable on room air. Troponin was negative, pro BNP 1156. EKG revealed sinus rhythm , no acute ischemic changes. no PVC no ectopy. Chest x-ray demonstrated low lung volumes with bronchovascular crowding . In emergency department patient received diuretic, antihypertensive , aspirin , and analgesic with subsequent improvement in symptoms. Patient subsequently admitted to telemetry floor for further management. HOSPITAL COURSE: Patient admitted to telemetry floor. Home medication resumed. Patient started on gentle diuresis with close monitoring of volumes and cardiorenal parameters. Supplemental oxygen was on board as needed to keep pulse oximetry above 92%. Patient clinically improved . Blood pressure stabilized . pulse oximetry was stable on room air. ProBNP down to 374 from initial 1156. Follow-up chest x-ray revealed improvement. Patient clinically stabilized and was ready for discharge home. FINAL DIAGNOSES: Pulmonary edema Asthma Shortness of breath Hypertensive heart disease with initial hypertensive urgency Acute diastolic congestive heart failure with a small pleural effusion Hyperlipidemia DISCHARGE MEDICATIONS: See Medication Reconciliation list. DISCHARGE INSTRUCTIONS: Patient was discharged home. With a primary care provider in 1 week. I have been assigned to dictate discharge summary for this account. I was not involved in the patient's management. Laurence Call NP Sep 26, 2020 09:28
== END 2020-09-24 17:06 | disposition home or self-care (01) | DRG 291 ==
LOC: EMR 19:14 → 2E 19:32 → EDBEDREQ 09-23 06:11 → 2E 09-23 13:11
DX: I11.0 Hypertensive heart disease with heart failure (principal); I50.31 Acute diastolic (congestive) heart failure; E87.2 Acidosis; J45.909 Unspecified asthma, uncomplicated; E78.5 Hyperlipidemia, unspecified; Z79.02 Long term (current) use of antithrombotics/antiplatelets; I16.0 Hypertensive urgency; I25.10 Atherosclerotic heart disease of native coronary artery without angina pectoris; Z90.49 Acquired absence of other specified parts of digestive tract; E11.9 Type 2 diabetes mellitus without complications; E78.1 Pure hyperglyceridemia
CPT/HCPCS: 36415; 71045; 80048; 80053; 82962; 83880; 84484; 85025; 93005; 94640; 94664; 96374; 96375; 99285; J1815; J2405

== ENCOUNTER 2020-10-01 18:36 | Inpatient (IN) | payer MEDICARE ==
[~2020-10-01] VITALS: Ht 157.5 cm; Wt 74.4 kg
[~2020-10-01 18:36] MED LIST changes: +FUROSEMIDE40 MG ORAL; +POTASSIUM CHLO10 ME2 PO
--- NOTE | 2020-10-01 18:50 | NUR ---
ED Nurse Note: walked in to ed c/o midsternal cp radiating to stomach accompanied by backpain and sob x1day. pt was dc from hospital yesterday. pt has hx chf. vss, nad, aaox4, ambulatory, ermd at bedside, on gown, on monitor. does not present with fever or nvd.
[2020-10-01 18:55] VITALS: BP 179/95
--- NOTE | 2020-10-01 18:55 | NUR ---
ED Nurse Note: xr at bedside
[2020-10-01] MEDS ORDERED: Azithromycin 500 MG in NS 275 ML IVPB ONE (19:00)
[2020-10-01] MEDS ORDERED: dexAMETHasone 10mg/ml Inj IV ONE (19:00)
[2020-10-01] MEDS ORDERED: cefTRIAXone 1 GM in NS 55 ML IV ONE (19:00)
--- NOTE | 2020-10-01 19:05 | NUR ---
ED Nurse Note: blood, covid swab collected and sent to lab.
--- NOTE | 2020-10-01 19:10 | NUR ---
ED Nurse Note: gave report to Rene RN
--- NOTE | 2020-10-01 19:11 | NUR ---
ED Nurse Note: Report received from KAREN STRICKLAND
--- NOTE | 2020-10-01 19:19 | Emergency Room Report ---
History of Present Illness General Chief Complaint: Chest Pain Source: Patient Present Illness HPI Patient is a 75-year-old female with past medical history of diastolic congestive heart failure, hypertension, asthma, dyslipidemia, diabetes who presents to the ER complaining of shortness of breath. Also endorses substernal nonradiating chest pressure, orthopnea, and dyspnea on exertion. Denies fever, hemoptysis, cough, nausea, vomiting, diarrhea, hematuria, melena, hematochezia or other symptoms. Patient was recently discharged from the hospital September 24 for similar presentation. She was found to have a mediastinal mass with biopsy with benign results. Denies sick contacts or recent travel. She states that she has been compliant with all of her medications, however patient is a very poor historian The patient's symptoms were gradual onset, severity was moderate, duration since 3 days. Quality: Pressure-like Past medical history: Congestive heart failure, hypertension, asthma, dyslipidemia, diabetes, mediastinal mass Past surgical history: Mediastinal mass biopsies Smoking: Denies Alcohol use: Denies Drug use: Denies Review of systems: CONST: No fevers or chills, No night sweats PULMONARY: No productive cough, positive shortness of breath CARDIAC: Positive chest pain, No palpitations GI: No vomiting, No diarrhea , No melena_or_BRBPR : No dysuria, No hematuria, No discharge NEURO: No new_focal_weakness_or_numbness, No confusion, No vision changes 14 point Review of Systems is otherwise negative except per HPI Physical Exam: GENERAL: Awake_alert_ nontoxic, mild distress Spo2 100% on RA -normal. Obese EYES: Extraocular muscles are intact. Conjunctivae clear. Lids without swelling ENT: External nose and ear normal_in_appearance. Oropharynx clear. Head_atraumatic, Moist_oral_mucosa NECK: No JVD. No meningismus. No thyromegaly. Supple. Trachea midline RESP: Labored breathing. Speaks in clipped sentences. Symmetric rise. No stridor. Coarse breath sounds bilaterally CARDIAC: Regular rate and regular rhytm. 1+ symmetric pitting edema bilaterally ABDOMEN: Soft. Nondistended. Nontender_No_rebound_or_guarding. MSK: Normal muscle tone, without rigidity. Extremities without asymmetric deformity or swelling. SKIN: Warm and dry. No visible cyanosis or pallor NEUROLOGIC: Alert, oriented x3. Motor_and_sensation_grossly_intact. No truncal ataxia. Gait_normal Psych: Normal mood and affect, normal judgment and insight - COORDINATION OF CARE Case was discussed with: Patient , Patient's Physician Any labs and imaging that were ordered were interpreted as part of the medical decision making: Medical Decision Making/Plan: Differential includes CHF, pulmonary edema, pulmonary embolism, pneumonia, pleural effusions, pneumothorax, among others. EKG normal sinus rhythm without any obvious signs of ischemia. Q waves in inferior leads Troponin is negative x1. BNP is elevated at 873. Creatinine is 1.6, more or less her baseline. Patient is also noted to have a UTI with elevated lactate of 3.8. Covid swab is negative. CXR shows right lower lobe opacity. Also has mediastinal haziness and cardiomegaly. Symptoms are not likely to be due to pulmonary embolism, the patient has no significant PE risk factors and has a more likely alternate cause of their symptoms, given their chest xray findings, lung exam and presentation so workup was deferred and not pursued. The patient appears to be in decompensated CHF in exacerbation and not a suitable candidate for outpatient treatment so will be admitted for inpatient diuresis and further evaluation and treatment. We will also treat for pneumonia secondary to severe increased work of breathing. Patient received antibiotics and Decadron here in the emergency department. I spoke with Dr. Correa, and reviewed the patients presentation, workup, results, and treatment. They will admit the patient for further care and evaluation, and assume care of the patient at this time. Allergies: Coded Allergies: No Known Allergies (Unverified , 01/17/16) COVID-19 Screening Contact w/high risk pt: No Recent Travel to affected area: No Experienced COVID-19 symptoms?: No COVID-19 Testing performed TEAM MANAGER: No Nursing Documentation-PM Past Medical History: No History, Except For Hx Cardiac Problems: Yes - CHF Hx Hypertension: Yes Hx COPD: Yes Hx Diabetes: Yes Hx Cancer: Yes Hx Gastrointestinal Problems: No Hx Neurological Problems: No Physical Exam Vital Signs Date Time Temp Pulse Resp B/P (MAP) Pulse Ox O2 Delivery O2 Flow Rate FiO2 10/01/20 18:44 97.2 102 20 183/86 (118) 97 Room Air Sp02 EP Interpretation: reviewed, normal Medical Decision Making Diagnostic Impression: Primary Impression: CHF exacerbation Additional Impressions: Hx of myocardial infarction Pleural effusion on right Pneumonia UTI (urinary tract infection) Anemia CKD (chronic kidney disease) Diabetes HLD (hyperlipidemia) Hypertension Hypokalemia EKG Diagnostic Results Troponin ordered: Yes When was troponin ordered?: Oct 01, 2020 [facility] 12-lead EKG (interpreted by me) Time: 1904 Indication: Rhythm analysis Tracing visualized and Interpreted by me. Rhythm: Normal sinus rhythm Rate: 97 bpm QTc: 485 Morphology: No_significant_ST_elevations_or_depressions, No STEMI Impression: Normal_sinus_rhythm_without_significant_abnormality Q waves inferior leads. Low voltage QRS. Left axis deviation Rhythm Strip Diag. Results Rhythm Strip Time: 19:18 EP Interpretation: yes Rate: 100 Rhythm: no PVC's, no ectopy Chest X-Ray Diagnostic Results Chest X-Ray Diagnostic Results : [facility] Chest X-Ray: Views: [ 1 ] view(s) Indication: Chest pain Findings: Right pleural effusion, bibasilar atelectasis. Hazy border of the rig ht mediastinum Impression: Cardiomegaly, right pleural effusion, bibasilar atelectasis The X-ray(s) were independently viewed and interpreted contemporaneously Electronically signed by Smitha horton DO Reevaluation Time: 21:02 Last Vital Signs Date Time Temp Pulse Resp B/P (MAP) Pulse Ox O2 Delivery O2 Flow Rate FiO2 10/01/20 18:44 97.2 102 20 183/86 (118) 97 Room Air Status: improved Disposition: ADMITTED INPATIENT Admit Decision Time: 19:19 Condition: Stable Referrals: Bulmaro Correa MD (PCP) Smitha Pascual D.O. Oct 01, 2020 19:19
[2020-10-01 19:52] LABS: CALCIUM 8.2 MG/DL (8.5-10.1); CREATININE 1.6 MG/DL (0.55-1.30); POTASSIUM 3.1 MMOL/L (3.5-5.1)
--- NOTE | 2020-10-01 20:01 | Diagnostic Imaging Report ---
EXAM: XR Chest, 1 View CLINICAL HISTORY: SOB TECHNIQUE: Frontal view of the chest. COMPARISON: Chest radiograph 09/24/2020 FINDINGS: Lungs: Mild right basilar opacity favored to represent atelectasis. Pleural space: Unremarkable. No pneumothorax. Heart: Stable mild cardiomegaly. Mediastinum: Unremarkable. Bones/joints: Unremarkable. IMPRESSION: Stable mild cardiomegaly without pulmonary vascular congestion or edema. Mild right basilar opacity favored to represent atelectasis.
[2020-10-01 20:02] LABS: BASOPHILS % (AUTO) 0.8 % (0.0-2.0); EOSINOPHILS % (AUTO) 1.3 % (0.0-3.0); HEMATOCRIT 33.1 % (37.0-47.0); HEMOGLOBIN 11.5 G/DL (12.0-16.0); LYMPHOCYTES % (AUTO) 14.3 % (20.0-45.0); MEAN CORPUSCULAR VOLUME 90 FL (80-99); MONOCYTES % (AUTO) 6.5 % (1.0-10.0); NEUTROPHILS % (AUTO) 77.1 % (45.0-75.0); PLATELET COUNT 216 K/UL (150-450); RED CELL DISTRIBUTION WIDTH 13.8 % (11.6-14.8); WHITE BLOOD COUNT 9.5 K/UL (4.8-10.8)
[2020-10-01 20:07] LABS: ALBUMIN 3.6 G/DL (3.4-5.0); ALBUMIN/GLOBULIN RATIO 0.8 (1.0-2.7); BILIRUBIN,TOTAL 0.2 MG/DL (0.2-1.0); PHOSPHORUS 3.4 MG/DL (2.5-4.9)
[2020-10-01 20:35] LABS: APPEARANCE,URINE SLIGHTLY CLOUDY; BILIRUBIN, URINE NEGATIVE (NEGATIVE); COLOR,URINE PALE YELLOW; GLUCOSE, URINE (UA) NEGATIVE (NEGATIVE); KETONES,URINE NEGATIVE (NEGATIVE); LEUKOCYTE ESTERASE ,URINE 2+ (NEGATIVE); NITRITE,URINE NEGATIVE (NEGATIVE); PH,URINE 6 (4.5-8.0); PROTEIN,URINE 3+ (NEGATIVE); UROBILINOGEN,URINE NORMAL MG/DL (0.0-1.0)
[2020-10-01] MEDS ORDERED: Enalaprilat 2.5mg/2ml Inj IV ONE (21:15)
[2020-10-01] MEDS: Nitroglycerin Patch 0.1mg/hr TDERMAL SCH (22:20)
--- NOTE | 2020-10-01 22:30 | NUR ---
ED Nurse Note: Vre, Cre, MRSA swabs sent
--- NOTE | 2020-10-01 23:00 | NUR ---
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 Belongings checked and given to RN. Patient transferred to bed safely and endorsed to RN
--- NOTE | 2020-10-01 23:05 | NUR ---
NURSE NOTES: Patient received from EM López. Patient transferred from ER to telemetry floor with no apparent problem. Patient is awake, alert and oriented x 4. Patient is able to verbalize her needs. Patient is able to ambulate. Patient's skin noted to be intact. Patient is on room air satting at 99%. Patient is complaining of stomach pain upon arrival. Patient has an IV on right his wrist 20 gauge, saline lock. Belongings list discussed with patient and RN. Bed is in the lowest position, call light within reach. Will continue to monitor.
[2020-10-02] VITALS: BP 180/87
--- NOTE | 2020-10-02 | NUR ---
NURSE NOTES: Left a message for Dr. Correa for admission orders. Awaiting for call back.
--- NOTE | 2020-10-02 02:00 | NUR ---
NURSE NOTES: Called and left a message to Dr. Correa regarding patient's blood pressure and admission orders. Awaiting for call back
[2020-10-02 04:00] VITALS: BP 180/87
--- NOTE | 2020-10-02 07:00 | NUR ---
NURSE NOTES: Received patient in bed awake. No SOB or acute distress. IV line intact and patent. Complaining of 5/10 epigastric pain. HOB elevated. Bed locked in low position. Call light within reach. Will continue plan of care.
[2020-10-02 08:00] VITALS: BP 96/53
--- NOTE | 2020-10-02 09:00 | NUR ---
NURSE NOTES: Connected to O2 via NC at 2LPM as ordered.
[2020-10-02] MEDS: Aspirin Baby 81mg ORAL SCH (09:21)
[2020-10-02] MEDS: Lyrica 50mg cap ORAL SCH ×3 (09:23→17:10)
[2020-10-02] MEDS: Heparin 5000 units/ml inj SUBQ SCH ×2 (09:27→21:49)
[2020-10-02 10:39] LABS: BASOPHILS % (AUTO) 0.3 % (0.0-2.0); EOSINOPHILS % (AUTO) 0.1 % (0.0-3.0); HEMATOCRIT 31.6 % (37.0-47.0); HEMOGLOBIN 10.8 G/DL (12.0-16.0); LYMPHOCYTES % (AUTO) 16.9 % (20.0-45.0); MEAN CORPUSCULAR VOLUME 91 FL (80-99); MONOCYTES % (AUTO) 5.2 % (1.0-10.0); NEUTROPHILS % (AUTO) 77.5 % (45.0-75.0); PLATELET COUNT 213 K/UL (150-450); RED BLOOD COUNT 3.48 M/UL (4.20-5.40); WHITE BLOOD COUNT 8.5 K/UL (4.8-10.8)
[2020-10-02 10:46] LABS: CREATININE 1.6 MG/DL (0.55-1.30); POTASSIUM 3.5 MMOL/L (3.5-5.1)
--- NOTE | 2020-10-02 11:35 | History & Physical ---
History and Physical History & Physicial 75-year-old female with multiple risk factors for premature coronary artery disease. She is on anti-platelet therapy with clopidogrel. + shortness of breath and elevated BNP and abnormal CXR as well as chest pain radiating to abdomen. There were no precipitating events. She has been on her usual medications and did not have any unusual events but has noted increasing sob. she has had a negative ribidium PET as outpatient. She was just recently admitted and improved She had negative COVID done earlier this week and again rapid negative She is improved this am She has had a V/Q scan that was negative and an MRI of the chest revealing as well as a CT chest contrast for possible benign mediastinal mass and did undergo biopsy with benign results PAST MEDICAL HISTORY: Hypertension, hyperlipidemia, type 2 diabetes mellitus, history of gastritis, COPD, coronary atherosclerosis, prior cholecystectomy, prior hernia repair, and hypertriglyceridemia. noncompliance, benign lung mass SOCIAL HISTORY: Negative for smoking or alcohol use. FAMILY HISTORY: Noncontributory. REVIEW OF SYSTEMS: all 10 points reviewed PHYSICAL EXAMINATION: WDWN NAD clear breath sounds bilaterally with some basilar crackles [id number] without MRG NABS nontender no HSM no CC mild edema nonfocal Laboratory Tests 10/01/20 19:15: White Blood Count 9.5, Red Blood Count 3.70L, Hemoglobin 11.5L, Hematocrit 33.1L , Mean Corpuscular Volume 90, Mean Corpuscular Hemoglobin 31.2H, Mean Corpuscular Hemoglobin Concent 34.8, Red Cell Distribution Width 13.8, Platelet Count 216, Mean Platelet Volume 7.2, Neutrophils (%) (Auto) 77.1H, Lymphocytes ( %) (Auto) 14.3L, Monocytes (%) (Auto) 6.5, Eosinophils (%) (Auto) 1.3, Basophils (%) (Auto) 0.8, Prothrombin Time 11.4, Prothromb Time International Ratio 1.0, Activated Partial Thromboplast Time 27, Sodium Level 143, Potassium Level 3.1L, Chloride Level 103, Carbon Dioxide Level 26, Anion Gap 14, Blood Urea Nitrogen 25H, Creatinine 1.6H, Estimat Glomerular Filtration Rate 31.4, Glucose Level 143H, Lactic Acid Level 3.80H, Calcium Level 8.2L, Phosphorus Level 3.4, Magnesium Level 1.2L, Ferritin 690H, Total Bilirubin 0.2, Aspartate Amino Transf (AST/SGOT) 26, Alanine Aminotransferase (ALT/SGPT) 20, Alkaline Phosphatase 100, Lactate Dehydrogenase 158, Troponin I 0.001, C-Reactive Protein, Quantitative 0.9, Pro-B-Type Natriuretic Peptide 873H, Total Protein 8.1, Albumin 3.6, Globulin 4.5, Albumin/Globulin Ratio 0.8L, Lipase 254 10/01/20 20:30: Urine Color Pale yellow, Urine Appearance Slightly cloudy, Urine pH 6, Urine Specific [place] 1.010, Urine Protein 3+H, Urine Glucose (UA) Negative, Urine Ketones Negative, Urine Blood Negative, Urine Nitrite Negative, Urine Bilirubin Negative, Urine Urobilinogen Normal, Urine Leukocyte Esterase 2+H, Urine RBC 0- 2, Urine WBC 20-30H, Urine Squamous Epithelial Cells ModerateH, Urine Bacteria ModerateH 10/01/20 22:20: Lactic Acid Level 3.80H 10/02/20 09:10: Sodium Level 144, Potassium Level 3.5, Chloride Level 107, Carbon Dioxide Level 24, Anion Gap 13, Blood Urea Nitrogen 27H, Creatinine 1.6H, Estimat Glomerular Filtration Rate 31.4, Glucose Level 193H, Calcium Level 8.0L, Troponin I 0.005, C-Reactive Protein, Quantitative 0.9, Pro-B-Type Natriuretic Peptide 1793H 10/02/20 09:55: White Blood Count 8.5, Red Blood Count 3.48L, Hemoglobin 10.8L, Hematocrit 31.6L , Mean Corpuscular Volume 91, Mean Corpuscular Hemoglobin 31.1H, Mean Corpuscular Hemoglobin Concent 34.3, Red Cell Distribution Width 14.0, Platelet Count 213, Mean Platelet Volume 7.6, Neutrophils (%) (Auto) 77.5H, Lymphocytes (%) (Auto) 16.9L, Monocytes (%) (Auto) 5.2, Eosinophils (%) (Auto) 0.1, Basophils (%) (Auto) 0.3, Erythrocyte Sedimentation Rate [Pending] IMPRESSION: 1. Pulmonary edema, recurrent 2. Asthma 3. Hyperlipidemia and triglyceridemia. 4. Shortness of breath 5. Hypertensive heart disease 6. Metabolic acidosis. 7. chest pain 8. History of COVID exposure 9. ROSEANN PLAN diurese resume home meds oxygen monitor labs avoid excessive diuresis repeat COVID PCR d/w family impression, plan, and exam edited and reviewed in detail care discussed with Bulmaro Dennis MD Oct 02, 2020 11:35
[2020-10-02 12:00] VITALS: BP 125/70
--- NOTE | 2020-10-02 12:12 | Diagnostic Imaging Report ---
FILM CXR 1 VIEW HISTORY: Chest pain TECHNIQUE: 1 view chest COMPARISON: October 01, 2020 FINDINGS: Enlarged heart with mild pulmonary congestion. Increased linear atelectasis in the right upper lobe. Subtle opacity in the right lower lobe with similar appearance to the prior study. No definite effusion or pneumothorax. IMPRESSION: Cardiomegaly and mild pulmonary congestion with mild right lower lobe atelectasis versus infiltrate. Increased right upper lobe linear atelectasis from the prior study.
[2020-10-02 16:00] VITALS: BP 114/68
--- NOTE | 2020-10-02 18:55 | NUR ---
NURSE HAND-OFF REPORT: Important Events on Shift:O2 via NC at 2LPM started. Patient Status: alert Diet: ccho med Pending Orders: Pending Results/Labs: Pending MD notification: Latest Vital Signs: Temperature 97.9 , Pulse 78 , B/P 114 /68 , Respiratory Rate 20 , O2 SAT 99 , Nasal Cannula, O2 Flow Rate 2.0 . Vital Sign Comment: EKG Rhythm: Sinus Rhythm Rhythm change?: N MD Notified?: - MD Response: Latest Booth Fall Score: 45 Fall Risk: High Risk Safety Measures: Call light Within Reach, Bed Alarm Zone 1, Side Rails Side Rails x2, Bed position Low and Locked. Fall Precautions: Yellow Socks . Addendum: 10/02/20 at 1946 by Martina Cramer RN HAND-OFF: Report given to Vandana STRICKLAND.
--- NOTE | 2020-10-02 19:30 | NUR ---
NURSE NOTES: Received pt and report from EM Mack. Observed pt resting in bed with both eyes open and watching television. Pt is A/Ox3. director food safety is in placed; pt is NSR. IV site intact, asymptomatic, and patent. Bed is in the lowest position and locked. Call light and bedside table is within reach. No signs/symptoms of acute distress noted. Will continue plan of care.
[2020-10-02 20:00] VITALS: BP 142/70
[2020-10-02] MEDS: Nitroglycerin Patch 0.1mg/hr TDERMAL SCH (21:47)
[2020-10-03] VITALS: BP 108/66
[2020-10-03 04:00] VITALS: BP 119/65
--- NOTE | 2020-10-03 07:20 | NUR ---
NURSE NOTES: Received hand-off report from Sarai Alatorre RN. Patient in stable condition, breathing even and unlabored, alert and oriented x4, hall monitor in place, right wrist 20g saline locked, intact, no swelling, no bleeding. Patient on 2L nasal cannula. Bed in lowest and locked position, bed alarm on. Tolerating CCHO medium diet well. Requested order from Dr. Correa, medication to control her diabetes. Awaiting response.
--- NOTE | 2020-10-03 07:48 | General Progress Note ---
Subjective Allergies: Coded Allergies: No Known Allergies (Unverified , 01/17/16) Subjective care noted labs noted awaiting PCR troponin negative x 3 Objective Last 24 Hour Vital Signs Date Time Temp Pulse Resp B/P (MAP) Pulse Ox O2 Delivery O2 Flow Rate FiO2 10/03/20 04:00 84 10/03/20 04:00 97.7 83 20 119/65 (83) 97 10/03/20 00:00 98.1 84 19 108/66 (80) 97 10/03/20 00:00 83 10/02/20 21:47 142/70 10/02/20 21:00 Nasal Cannula 2.0 10/02/20 20:00 97.6 78 19 142/70 (94) 97 10/02/20 20:00 79 10/02/20 16:00 97.9 84 20 114/68 (83) 99 10/02/20 16:00 78 10/02/20 12:00 97.8 79 20 125/70 (88) 98 10/02/20 12:00 91 10/02/20 09:00 Nasal Cannula 2.0 10/02/20 09:00 87 96/53 10/02/20 08:00 84 10/02/20 08:00 97.8 87 20 96/53 (67) 98 Intake and Output 10/02/20 10/03/20 19:00 07:00 Intake Total 400 ml 300 ml Balance 400 ml 300 ml Intake Oral 400 ml 300 ml # Voids 4 2 # Bowel Movements 1 1 Laboratory Tests 10/02/20 09:10: Sodium Level 144, Potassium Level 3.5, Chloride Level 107, Carbon Dioxide Level 24, Anion Gap 13, Blood Urea Nitrogen 27H, Creatinine 1.6H, Estimat Glomerular Filtration Rate 31.4, Glucose Level 193H, Calcium Level 8.0L, Troponin I 0.005, C-Reactive Protein, Quantitative 0.9, Pro-B-Type Natriuretic Peptide 1793H 10/02/20 09:55: White Blood Count 8.5, Red Blood Count 3.48L, Hemoglobin 10.8L, Hematocrit 31.6L , Mean Corpuscular Volume 91, Mean Corpuscular Hemoglobin 31.1H, Mean Corpuscular Hemoglobin Concent 34.3, Red Cell Distribution Width 14.0, Platelet Count 213, Mean Platelet Volume 7.6, Neutrophils (%) (Auto) 77.5H, Lymphocytes (%) (Auto) 16.9L, Monocytes (%) (Auto) 5.2, Eosinophils (%) (Auto) 0.1, Basophils (%) (Auto) 0.3, Erythrocyte Sedimentation Rate 60H 10/02/20 14:00: Troponin I 0.000 10/02/20 21:35: Troponin I 0.002 Height (Feet): 5 Height (Inches): 2.00 Weight (Pounds): 164 Objective WDWN NAD clear breath sounds bilaterally without rhonchi or wheeze [id number] without MRG NABS nontender no HSM no CCE nonfocal Assessment/Plan Assessment/Plan: IMPRESSION: 1. Pulmonary edema, recurrent 2. Asthma 3. Hyperlipidemia and triglyceridemia. 4. Shortness of breath 5. Hypertensive heart disease 6. Metabolic acidosis. 7. chest pain 8. History of COVID exposure 9. ROSEANN PLAN diurese resume home meds oxygen monitor labs avoid excessive diuresis repeat COVID PCR d/w family impression, plan, and exam edited and reviewed in detail care discussed with Bulmaro Dennis MD Oct 03, 2020 07:48
[2020-10-03 08:00] VITALS: BP 120/78
--- NOTE | 2020-10-03 08:00 | NUR ---
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 Patient Status: Stable Diet: CCHO (M) Pending Orders: N Pending Results/Labs: Vanco trough Pending MD notification: N Latest Vital Signs: Temperature 97.7 , Pulse 83 , B/P 119 /65 , Respiratory Rate 20 , O2 SAT 97 , Nasal Cannula, O2 Flow Rate 2.0 . EKG Rhythm: Sinus Rhythm Rhythm change?: N Latest Booth Fall Score: 45 Fall Risk: High Risk Safety Measures: Call light Within Reach, Bed Alarm Zone 1, Side Rails Side Rails x2, Bed position Low and Locked. Fall Precautions: Yellow Socks Patient Fall Education Report given to EM Espinosa.
[2020-10-03] MEDS: Lyrica 50mg cap ORAL SCH ×3 (09:00→17:12)
[2020-10-03] MEDS: Aspirin Baby 81mg ORAL SCH (09:57)
[2020-10-03] MEDS: Heparin 5000 units/ml inj SUBQ SCH ×2 (10:03→21:31)
[2020-10-03 12:00] VITALS: BP 104/51
[2020-10-03] MEDS: NovoLOG Insulin Flexpen SUBQ SCH ×3 (12:08→21:34)
--- NOTE | 2020-10-03 14:32 | NUR ---
CASE MANAGEMENT:REVIEW 75 YR OLD FEMALE WALKED IN TO CC: CHEST PAIN AND SOB SI: CHF. PNA. HTN 97.2 102 20 183/86 97% ON RA IS: IV AZITHROMYCIN IV DECADRON IV ROCEPHIN IV LASIX K-DUR IV VASOTEC ASA PO BLOOD CX : TELEMETRY STATUS DCP: FROM HOME
[2020-10-03 16:00] VITALS: BP 115/60
[2020-10-03] MEDS ORDERED: LOSARTAN POTAS100 MG ORAL (16:58)
[2020-10-03] MEDS ORDERED: ROBAXIN-500MG ORAL (16:58)
[2020-10-03] MEDS ORDERED: PREGABALIN50 MG PO (16:58)
--- NOTE | 2020-10-03 19:06 | NUR ---
NURSE HAND-OFF REPORT: Important Events on Shift: voids with assistance, bgl stable Patient Status: stable condition, alert and oriented x4, full code Diet: CCHO medium Pending Orders: [] Pending Results/Labs:[] Pending MD notification:[] Latest Vital Signs: Temperature 97.5 , Pulse 93 , B/P 115 /60 , Respiratory Rate 20 , O2 SAT 96 , Nasal Cannula, O2 Flow Rate 2.0 . Vital Sign Comment: [] EKG Rhythm: Sinus Rhythm Rhythm change?: N MD Notified?: N - MD Response: Latest Booth Fall Score: 45 Fall Risk: High Risk Safety Measures: Call light Within Reach, Bed Alarm Zone 1, Side Rails Side Rails x2, Bed position Low and Locked. Fall Precautions: Yellow Socks Yellow Gown Patient Fall Education Report given to EM Moon.
--- NOTE | 2020-10-03 19:36 | NUR ---
NURSE NOTES: Received pt and report from EM Espinosa. Observed pt resting in bed with both eyes closed; arousable to voice. Pt is A/Ox3. hot walker is in placed; pt is NSR. IV site intact, asymptomatic, and patent. Bed is in the lowest position and locked. Call light and bedside table is within reach. No signs/symptoms of SOB, CP, or any acute distress noted. Will continue plan of care.
[2020-10-03 20:00] VITALS: BP 139/72
[2020-10-03] MEDS: Nitroglycerin Patch 0.1mg/hr TDERMAL SCH (21:36)
[2020-10-04] VITALS: BP 116/64
[2020-10-04 04:00] VITALS: BP 148/83
[2020-10-04] MEDS: NovoLOG Insulin Flexpen SUBQ SCH ×2 (05:58→12:07)
--- NOTE | 2020-10-04 07:42 | NUR ---
NURSE HAND-OFF REPORT: Important Events on Shift: No signs/symptoms of SOB or CP. No significant changes during cook night. Patient Status: Stable Diet: CCHO (M) Pending Orders: N Pending Results/Labs: N Pending MD notification: N Latest Vital Signs: Temperature 97.7 , Pulse 98 , B/P 148 /83 , Respiratory Rate 19 , O2 SAT 96 , Nasal Cannula, O2 Flow Rate 2.0 . EKG Rhythm: Sinus Rhythm Rhythm change?: N Latest Booth Fall Score: 35 Fall Risk: Medium Risk Safety Measures: Call light Within Reach, Bed Alarm Zone 1, Side Rails Side Rails x2, Bed position Low and Locked. Fall Precautions: Yellow Socks Patient Fall Education Report given to EM Mack.
--- NOTE | 2020-10-04 07:43 | NUR ---
NURSE NOTES: Received patient in bed awake. O2 via NC in place, no SOB or acute distress. IV line intact and patent. HOB elevated. Bed locked in low position. Call light within reach. Will continue plan of care.
[2020-10-04 08:00] VITALS: BP 135/80
--- NOTE | 2020-10-04 08:04 | General Progress Note ---
Subjective Allergies: Coded Allergies: No Known Allergies (Unverified , 01/17/16) Subjective care noted labs noted awaiting PCR repeat troponin negative x 3 Objective Last 24 Hour Vital Signs Date Time Temp Pulse Resp B/P (MAP) Pulse Ox O2 Delivery O2 Flow Rate FiO2 10/04/20 04:00 84 10/04/20 04:00 97.7 98 19 148/83 (104) 96 10/04/20 00:00 98.2 88 19 116/64 (81) 97 10/04/20 00:00 88 10/03/20 21:36 147/83 10/03/20 21:00 Nasal Cannula 2.0 10/03/20 20:00 89 10/03/20 20:00 97.9 87 19 139/72 (94) 96 10/03/20 16:00 97.5 91 20 115/60 (78) 96 10/03/20 16:00 93 10/03/20 12:00 107 10/03/20 12:00 97.7 83 20 104/51 (68) 97 10/03/20 09:00 Nasal Cannula 2.0 Intake and Output 10/03/20 10/04/20 19:00 07:00 Intake Total 360 ml 150 ml Balance 360 ml 150 ml Intake Oral 360 ml 150 ml # Voids 4 1 Laboratory Tests 10/03/20 12:05: POC Whole Blood Glucose [Pending] 10/03/20 17:09: POC Whole Blood Glucose 164H 10/03/20 20:30: POC Whole Blood Glucose 167H 10/04/20 05:17: POC Whole Blood Glucose 154H Height (Feet): 5 Height (Inches): 2.00 Weight (Pounds): 164 Objective WDWN NAD clear breath sounds bilaterally without rhonchi or wheeze [id number] without MRG NABS nontender no HSM no CCE nonfocal Assessment/Plan Assessment/Plan: IMPRESSION: 1. Pulmonary edema, recurrent 2. Asthma 3. Hyperlipidemia and triglyceridemia. 4. Shortness of breath 5. Hypertensive heart disease 6. Metabolic acidosis. 7. chest pain 8. History of COVID exposure 9. ROSEANN PLAN diurese with plans for po lasix on dc maintain home meds oxygen - check off monitor labs avoid excessive diuresis repeat COVID PCR d/w family dc home if stable today impression, plan, and exam edited and reviewed in detail care discussed with Bulmaro Dennsi MD Oct 04, 2020 08:04
[2020-10-04] MEDS: Aspirin Baby 81mg ORAL SCH (10:20)
[2020-10-04] MEDS: Lyrica 50mg cap ORAL SCH ×2 (10:21→12:09)
[2020-10-04] MEDS: Heparin 5000 units/ml inj SUBQ SCH (10:23)
[2020-10-04 12:00] VITALS: BP 120/75
--- NOTE | 2020-10-04 14:43 | NUR ---
NURSE NOTES: Patient removed NC from time to time, no SOB or complaints of discomfort noted. IV line intact and patent. HOB elevated. Bed locked in low position. Call light within reach. Will continue plan of care.
--- NOTE | 2020-10-04 14:49 | NUR ---
NURSE NOTES: Patient ambulates to restroom without calling for assistance. RN repeatedly explained to patient using the call light, verbalized understanding but still gets up. Patient verbalizes she feels ok. RN provided furniture to hold on to in case patient keeps on getting up without assistance. Gait was steady.
[2020-10-04 16:00] VITALS: BP 118/70
--- NOTE | 2020-10-04 17:25 | NUR ---
*-*DISCHARGE PLANNING*-* PATIENT HAS BEEN REFERRED TO: [facility] P: [phone]
--- NOTE | 2020-10-04 17:30 | NUR ---
NURSE NOTES: Patient discharged to home in stable condition. IV line removed. monitoring specialist removed. No new skin issues noted. Belongings accounted for. Wheeled to lobby by structural engineer, picked up by granddaughter. Dr loev called [facility] for lasix as discharge medication. Discharge instructions given, verbalized understanding.
--- NOTE | 2020-10-05 03:08 | Cardiology Progress Note ---
Subjective DATE OF SERVICE: Oct 03, 2020 Objective Laboratory Tests Test 10/04/20 05:17 10/04/20 11:52 POC Whole Blood Glucose 154 MG/DL (74-106) H 152 MG/DL (74-106) H Pankaj Abreu MD Oct 05, 2020 03:08
--- NOTE | 2020-10-05 03:08 | Cardiology Progress Note ---
Subjective DATE OF SERVICE: Oct 04, 2020 Objective Last 24 Hour Vital Signs Date Time Temp Pulse Resp B/P (MAP) Pulse Ox O2 Delivery O2 Flow Rate FiO2 10/04/20 16:00 97.5 93 18 118/70 (86) 95 10/04/20 12:00 98 10/04/20 12:00 98 10/04/20 12:00 97.7 93 19 120/75 (90) 96 10/04/20 10:32 91 135/80 10/04/20 09:00 Nasal Cannula 2.0 10/04/20 08:00 95 10/04/20 08:00 97.9 91 18 135/80 (98) 97 10/04/20 04:00 84 10/04/20 04:00 97.7 98 19 148/83 (104) 96 Laboratory Tests Test 10/04/20 05:17 10/04/20 11:52 POC Whole Blood Glucose 154 MG/DL (74-106) H 152 MG/DL (74-106) H Pankaj Abreu MD Oct 05, 2020 03:08
--- NOTE | 2020-10-05 12:04 | NUR ---
*-*DISCHARGE PLANNING*-* PATIENT HAS BEEN REFERRED TO: [facility] 1999 P: [phone] S/W NAMRATA, UNABLE TO SERVICE PATIENT IN THIS AREA, CANNOT ACCOMMODATE PATIENT.
--- NOTE | 2020-10-05 14:12 | Discharge Summary ---
Discharge Summary Discharge Summary _ DATE OF ADMISSION: 10/01/2020 DATE OF DISCHARGE: 10/04/2020 patient was discharged home. DISCHARGED BY: Dr. Correa REASON FOR ADMISSION: 75 years old female with past medical history of diastolic congestive heart failure, hypertension, asthma, dyslipidemia, diabetes mellitus, presented to emergency department complaining of shortness of breath. Patient also reported substernal nonradiating chest pressure, orthopnea, and dyspnea on exertion. She denied fever and chills. She denied cough or hemoptysis. She denied nausea, vomiting, and diarrhea. No hematuria. No melena, hematochezia or other symptoms. Patient was recently discharged from the hospital on September 24 , when she was found to have mediastinal mass with biopsy showing benign results. Rapid COVID-19 was negative . Laboratory work-up revealed no leukocytosis ,hemoglobin 11.5 ,hematocrit 33.1 ,platelet count 216. Potassium 3.1. BUN 25, creatinine 1.6. Glucose 143. Lactic acid 3.8. Magnesium 1.2. Troponin negative , pro BNP 873. EKG revealed sinus rhythm, no acute ischemic changes. Urinalysis revealed pyuria, moderate bacteria ,+2 leukocyte esterase, +3 protein. Chest x-ray demonstrated stable mild cardiomegaly without pulmonary vascular congestion or edema. Mild right basilar opacity , probably representing atelectasis. In emergency department patient Patient received empiric antibiotic , Decadron , aspirin, Lasix. Potassium and magnesium replaced. Patient subsequently admitted to telemetry floor for further management. CONSULTANTS: folder operator [facility] COURSE: Patient admitted to telemetry floor. Patient was diuresed with IV Lasix with close subsequently was monitoring of volumes and cardiorenal parameters , and sequently both Lasix. Switched to oral upon discharge Excessive diuresis was avoided. Supplemental oxygen was on board as needed to keep pulse oximetry above 92%. Pulmonary toilet provided. DVT prophylaxis provided. Dual antiplatelet therapy with aspirin and Plavix continued. Home medication continued. Blood pressure was managed with calcium channel henrique, and clonidine was on board as needed for blood pressure spikes. Blood sugar was managed with a sliding scale of insulin. Follow-up chest x-ray revealed cardiomegaly and mild pulmonary congestion. Blood and urine culture were negative . Repeated Covid 19 by PCR was positive. Patient had a prior history of COVID exposure. Respiratory status remained stable : no hypoxia, and respiratory distress. Patient was counseled on isolation at home. Patient clinically stabilized and was ready for discharge. FINAL DIAGNOSES: COVID 19 infection with history of COVID exposure Recurrent pulmonary edema Asthma Hypertensive heart disease Chest pain Acute kidney injury Hyperlipidemia and triglyceridemia DISCHARGE MEDICATIONS: List of medication was sent with patient DISCHARGE INSTRUCTIONS: Patient was discharged home with home health services. Follow up with primary care provider in one week. I have been assigned to dictate discharge summary for this account. I was not involved in the patient's management. Laurence Call NP Oct 05, 2020 14:12
== END 2020-10-04 17:31 | disposition home or self-care (01) | DRG 177 ==
LOC: EMR 19:00 → 2E 19:21 → EDBEDREQ 21:03
DX: U07.1 COVID-19 (principal); J81.0 Acute pulmonary edema; N17.9 Acute kidney failure, unspecified; N39.0 Urinary tract infection, site not specified; I50.32 Chronic diastolic (congestive) heart failure; I11.0 Hypertensive heart disease with heart failure; J45.909 Unspecified asthma, uncomplicated; E78.5 Hyperlipidemia, unspecified; R07.9 Chest pain, unspecified; E11.9 Type 2 diabetes mellitus without complications; J44.9 Chronic obstructive pulmonary disease, unspecified; I25.10 Atherosclerotic heart disease of native coronary artery without angina pectoris; E78.1 Pure hyperglyceridemia
CPT/HCPCS: 36415; 71045; 80048; 80053; 81003; 82728; 82962; 83605; 83615; 83690; 83735; 83880; 84100; 84484; 85025; 85610; 85651; 85730; 86140; 87040; 87081; 87086; 93005; 96365; 96367; 96375; 99285; J1815; J8499; U0002

== ENCOUNTER 2020-10-24 10:09 | Emergency (ER) | payer MEDICARE ==
[~2020-10-24] VITALS: Ht 157.5 cm; Wt 69.9 kg
[~2020-10-24 10:09] MED LIST changes: +LOSARTAN POTAS100 MG ORAL; +PREGABALIN50 MG PO; +ROBAXIN-500MG ORAL
[2020-10-24 10:36] VITALS: BP 147/80
--- NOTE | 2020-10-24 10:41 | NUR ---
ED Nurse Note: Patient walked in to ER from home due to CP that radiates to her left arm since last night. Also c/o nausea and dizziness. Patient presented with steady gait, AAO x4, O 2sat 100% on RA.
--- NOTE | 2020-10-24 10:42 | Emergency Room Report ---
History of Present Illness General Chief Complaint: Chest Pain Source: Patient, Medical Record Present Illness HPI 75-year-old female history of hypertension, CHF, cardiac disease presents with chest tightness that has been ongoing since 9:00 last night constant sharp no aggravating relieving factors severity is moderate she endorses shortness of breath recent diagnosis of Covid early September endorses a dry cough no fevers no chills no body aches patient presents for evaluation Allergies: Coded Allergies: No Known Allergies (Unverified , 01/17/16) COVID-19 Screening Contact w/high risk pt: No Recent Travel to affected area: No Experienced COVID-19 symptoms?: No COVID-19 Testing performed 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: Yes COVID-19 Screening: Positive COVID-19 COVID-19 Testing Source: 10/04/20 Patient History Past Medical History: see triage record Reviewed Nursing Documentation: PMH: Agreed; PSxH: Agreed Nursing Documentation-PMH Past Medical History: No History, Except For Hx Cardiac Problems: Yes - CHF Hx Hypertension: Yes Hx Asthma: Yes Hx COPD: Yes Hx Diabetes: Yes Hx Cancer: Yes Hx Gastrointestinal Problems: No Hx Neurological Problems: No Review of Systems All Other Systems: negative except mentioned in HPI Physical Exam Vital Signs Date Time Temp Pulse Resp B/P (MAP) Pulse Ox O2 Delivery O2 Flow Rate FiO2 10/24/20 10:12 97.9 81 16 147/80 (102) 96 Room Air Sp02 EP Interpretation: reviewed, normal General Appearance: well appearing, no apparent distress, alert Head: normocephalic, atraumatic Eyes: bilateral eye PERRL, bilateral eye EOMI ENT: uvula midline, moist mucus membranes Neck: supple, thyroid normal, supple/symm/no masses Respiratory: lungs clear, no respiratory distress, no retraction, no accessory muscle use Cardiovascular #1: normal peripheral pulses, regular rate, rhythm, no edema, no gallop, no murmur Gastrointestinal: non tender, soft, no guarding, no rebound Musculoskeletal: normal inspection Neurologic: alert, oriented x3 Psychiatric: mood/affect normal Skin: no rash, warm/dry Medical Decision Making Diagnostic Impression: Primary Impression: Chest pain Qualified Codes: R07.9 - Chest pain, unspecified ER Course 75-year-old female presents with recurrent chest pain patient with negative nuclear stress this year additionally multiple evaluations on hospitalizations recent diagnosis of Covid troponin negative chest x-ray negative,. 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 Strict return precautions were discussed patient feels comfortable going home Laboratory Tests Test 10/24/20 10:21 White Blood Count 8.9 K/UL (4.8-10.8) Red Blood Count 3.26 M/UL (4.20-5.40) L Hemoglobin 10.3 G/DL (12.0-16.0) L Hematocrit 28.8 % (37.0-47.0) L Mean Corpuscular Volume 88 FL (80-99) Mean Corpuscular Hemoglobin 31.5 PG (27.0-31.0) H Mean Corpuscular Hemoglobin Concent 35.7 G/DL (32.0-36.0) Red Cell Distribution Width 14.6 % (11.6-14.8) Platelet Count 230 K/UL (150-450) Mean Platelet Volume 7.0 FL (6.5-10.1) Neutrophils (%) (Auto) 66.0 % (45.0-75.0) Lymphocytes (%) (Auto) 21.7 % (20.0-45.0) Monocytes (%) (Auto) 6.0 % (1.0-10.0) Eosinophils (%) (Auto) 5.1 % (0.0-3.0) H Basophils (%) (Auto) 1.2 % (0.0-2.0) Sodium Level 141 MMOL/L (136-145) Potassium Level 3.7 MMOL/L (3.5-5.1) Chloride Level 107 MMOL/L (98-107) Carbon Dioxide Level 20 MMOL/L (21-32) L Anion Gap 14 mmol/L (5-15) Blood Urea Nitrogen 26 mg/dL (7-18) H Creatinine 1.2 MG/DL (0.55-1.30) Estimated Glomerular Filtration Rate 43.8 mL/min (>60) Glucose Level 176 MG/DL (74-106) H Calcium Level 8.5 MG/DL (8.5-10.1) Total Bilirubin 0.1 MG/DL (0.2-1.0) L Aspartate Amino Transferase (AST) 31 U/L (15-37) Alanine Aminotransferase (ALT) 31 U/L (12-78) Alkaline Phosphatase 124 U/L (46-116) H Troponin I 0.000 ng/mL (0.000-0.056) Pro-B-Type Natriuretic Peptide 673 pg/mL (0-125) H Total Protein 7.5 G/DL (6.4-8.2) Albumin 3.4 G/DL (3.4-5.0) Globulin 4.1 g/dL Albumin/Globulin Ratio 0.8 (1.0-2.7) L Microbiology Date/Time Source Procedure Growth Status 10/24/20 10:25 Nasopharynx SARS-CoV-2 RdRp Gene Assay - Final Complete EKG Diagnostic Results Troponin ordered: Yes When was troponin ordered?: Oct 24, 2020 EKG Time: 10:22 EP Interpretation: NSR, rate 69, QTc 433, no acute ST elevations, left axis deviation Rhythm Strip Diag. Results Rhythm Strip Time: 10:42 EP Interpretation: yes Rate: 75 Rhythm: NSR, no PVC's, no ectopy Chest X-Ray Diagnostic Results Chest X-Ray Diagnostic Results : Chest X-Ray Ordered: Yes # of Views/Limited/Complete: 1 View Indication: Chest Pain EP Interpretation: Yes Interpretation: no consolidation, no effusion, no pneumothorax, no acute cardiopulmonary disease Impression: No acute disease Electronically Signed by: Russ Armando MD Last Vital Signs Date Time Temp Pulse Resp B/P (MAP) Pulse Ox O2 Delivery O2 Flow Rate FiO2 10/24/20 10:36 81 16 Room Air 10/24/20 10:36 97.9 147/80 96 Disposition: HOME, SELF-CARE Condition: Stable Referrals: [facility] Patient Instructions: Nonspecific Chest Pain Additional Instructions: The patient was provided with discharge instructions, notified to follow-up with a primary care doctor and or specialist in the next 24-48 hours, and to return to the ED if they have worsening of their symptoms. Please note that this report is being documented using [employer] technology. This can lead to erroneous entry secondary to incorrect interpretation by the dictating instrument. Russ Armando MD Oct 24, 2020 10:42
[2020-10-24 10:49] LABS: BASOPHILS % (AUTO) 1.2 % (0.0-2.0); EOSINOPHILS % (AUTO) 5.1 % (0.0-3.0); HEMATOCRIT 28.8 % (37.0-47.0); HEMOGLOBIN 10.3 G/DL (12.0-16.0); LYMPHOCYTES % (AUTO) 21.7 % (20.0-45.0); MEAN CORPUSCULAR VOLUME 88 FL (80-99); PLATELET COUNT 230 K/UL (150-450); RED BLOOD COUNT 3.26 M/UL (4.20-5.40); RED CELL DISTRIBUTION WIDTH 14.6 % (11.6-14.8); WHITE BLOOD COUNT 8.9 K/UL (4.8-10.8)
[2020-10-24 11:16] LABS: CALCIUM 8.5 MG/DL (8.5-10.1); CREATININE 1.2 MG/DL (0.55-1.30); POTASSIUM 3.7 MMOL/L (3.5-5.1)
--- NOTE | 2020-10-24 11:17 | Diagnostic Imaging Report ---
Indication: Chest pain Technique: One view of the chest Comparison: 10/02/2020 Findings: Heart is borderline enlarged. Lungs and pleural spaces are clear except for some atelectasis or scarring in the right perihilar region. Previously demonstrated upper lobe atelectatic bands are no longer evident. Previous reported interstitial congestion is no longer evident Impression: Borderline cardiomegaly. No acute process
[2020-10-24 11:27] LABS: ALBUMIN 3.4 G/DL (3.4-5.0); ALBUMIN/GLOBULIN RATIO 0.8 (1.0-2.7); BILIRUBIN,TOTAL 0.1 MG/DL (0.2-1.0)
[2020-10-24 12:39] VITALS: BP 147/80
--- NOTE | 2020-10-24 12:40 | NUR ---
ER DISCHARGE NOTE: Patient is cleared to be discharged per ERMD, pt is aox4, on room air, with stable vital signs. pt was given dc and prescription instructions, pt was able to verbalize understanding, pt id band and iv site removed without complications. pt is able to ambulate with steady gait. pt took all belongings.
== END 2020-10-24 12:40 | disposition home or self-care (01) ==
LOC: EMR 10:56
DX: R07.89 Other chest pain (principal); I11.0 Hypertensive heart disease with heart failure; I50.9 Heart failure, unspecified; J44.9 Chronic obstructive pulmonary disease, unspecified; E11.9 Type 2 diabetes mellitus without complications; U07.1 COVID-19
CPT/HCPCS: 36415; 71045; 80053; 83880; 84484; 85025; 93005; 99284; U0002